=== PATIENT | male | born 1935 | race Caucasian/White ===

== ENCOUNTER → 2016-09-21 | Outpatient (CLI) | payer MEDICARE, BC ==
[2016-09-21 11:21] LABS: Blood Urea Nitrogen 13 mg/dL (9-20); Non-African American GFR(MDRD) >60 (>60 ml/min/1.73 sqM)
--- NOTE | 2016-09-21 13:30 | CT ---
EXAMINATION TYPE: CT abdomen pelvis w con DATE OF EXAM: 09/21/2016 12:54 PM COMPARISON: CT chest 04/10/2012 HISTORY: Abnormal urine cytology CT DLP: 1421 mGycm CONTRAST: CT scan of the abdomen and pelvis is performed with Oral Contrast and with IV Contrast, patient injec kary with 100 ml mL of Omnipaque 300. FINDINGS: LUNG BASES-: Enlarging pulmonary nodule right middle lobe medial segment measuring 1.4 cm versus 9.2 mm previously . This has increased in size relative to the prior study. Basilar compressive atelectasis seen. LIVER/GB: No calcified gallstones. No space occupying hepatic lesion. Biliary tree is of normal ca liber. PANCREAS: No inflammation. No distinct mass. SPLEEN: No splenic enlargement. No lesion seen. ADRENALS: No nodule. No thickening. KIDNEYS/BLADDER: No hydronephrosis. No nephrolithiasis. No disctinct renal mass. Urinary bladder g rossly unremarkable. BOWEL: Normal appendix. Normal bowel caliber. No inflammation. GENITAL ORGANS: The prostate gland is enlarged. LYMPH NODES: No greater than 1cm abdominal or pelvic lymph nodes are appreciated. AORTA: Aneurysmal dilatation of the abdominal aorta at the aortic hiatus. Infrarenal abdominal aortic aneurysm measuring 3.3 cm. OSSEOUS STRUCTURES: Degenerative changes lumbar spine. Central stenosis L5-S1. OTHER: No significant additional abnormality is seen. IMPRESSION: 1. Enlarging pulmonary nodule. Consider PET/CT. 2. Abdominal aortic aneurysm
== END | disposition home or self-care (01) ==
LOC: RADCTMAIN 10:41
PROVIDERS: ATTEND Urology
DX: I71.4 Abdominal aortic aneurysm, without rupture (principal)
CPT/HCPCS: 82565; 84520; 74177; Q9967

== ENCOUNTER → 2016-09-27 | Outpatient (CLI) | payer MEDICARE, BC ==
--- NOTE | 2016-09-27 10:24 | US ---
EXAMINATION TYPE: US duplex aorta DATE OF EXAM: 09/27/2016 COMPARISON: CT abdomen and pelvis 2017, US 2016 CLINICAL HISTORY: I71.4 Aortic abdominal aneurysm w/o rupture. EXAM MEASUREMENTS: Abdominal Aorta: Proximal: 2.8 x 2.8 cm Mid: 3.2 x 3.5 cm Distal: 2.2 x 2.2 cm Bifurcation: 0.8 cm 0.8 cm Atherosclerotic changes noted in Aorta. Mid/Distal AAA measured above. IMPRESSION: Aneurysm mid abdominal aorta measuring up to 3.5 cm transversely is redemonstrated and co rrelates with recent CT. Findings more prominent than what was found on prior ultrasound July 2015. Advise persistent imaging surveillance every 1-2 years.
== END | disposition home or self-care (01) ==
LOC: RADUSWWP 09:33
PROVIDERS: ATTEND Internal Medicine Geriatric Medicine
DX: I71.4 Abdominal aortic aneurysm, without rupture (principal)
CPT/HCPCS: 93979

== ENCOUNTER → 2017-08-22 | Outpatient (CLI) | payer MEDICARE, BC ==
--- NOTE | 2017-08-22 09:13 | US ---
EXAMINATION TYPE: US duplex aorta DATE OF EXAM: 08/22/2017 COMPARISON: 09/27/2016 CLINICAL HISTORY: I71.4 Abdominal aortic aneurysm without rupture. EXAM MEASUREMENTS: Abdominal Aorta: Proximal: 2.2x1.8 cm Mid: 2.3 x 2.0cm Distal: 3.3 x2.3 cm Bifurcation: 0.7 0.8 Atherosclerotic plaque noted. IMPRESSION: 1. There is a stable abdominal aortic distal aneurysm measuring maximal dimension of 3.3 x 2.3 cm.
== END | disposition home or self-care (01) ==
LOC: RADUSWWP 08:38
PROVIDERS: ATTEND Internal Medicine Geriatric Medicine
DX: I71.4 Abdominal aortic aneurysm, without rupture (principal)
CPT/HCPCS: 93979

== ENCOUNTER 2018-01-13 16:38 | Emergency (ER) | payer MEDICARE, BC ==
[2018-01-13] MEDS ORDERED: METOCLOPRAMIDE 5 MG/ML 2 ML VIAL IVP STA (17:21)
[2018-01-13] MEDS ORDERED: MECLIZINE 12.5 MG TAB PO STA (17:21)
--- NOTE | 2018-01-13 17:23 | ED ---
General Adult HPI - General Chief complaint: Dizziness Stated complaint: Dizzy, Vomiting Time Seen by Provider: 01/13/18 17:17 Source: patient, RN notes reviewed Mode of arrival: wheelchair Limitations: no limitations - History of Present Illness Initial comments: Patient is a pleasant 82-year-old male presenting to the emergency department with dizziness. Onset of symptoms was around 3 or 4:00. Patient did have sudden onset. Dizziness is described as a spinning type sensation. Symptoms are worse with head movement and upright position and improved with lying down. Patient did vomit. No confusion. No loss of consciousness. No speech problems. No weakness. Patient did have similar symptoms approximately 7 years ago. Symptoms are minimal at this point while lying down in bed. - Related Data Home Medications Medication Instructions Recorded Confirmed Aspirin [Adult Low Dose Aspirin EC] 81 mg PO DAILY 01/13/18 01/13/18 Finasteride [Proscar] 5 mg PO DAILY@1900 01/13/18 01/13/18 Lisinopril [Prinivil] 20 mg PO BID 01/13/18 01/13/18 Niacin 500 mg PO DAILY 01/13/18 01/13/18 [place]-3 Fatty Acids/Fish Oil [Fish 1 cap PO DAILY 01/13/18 01/13/18 Oil 1,000 mg Softgel] Simvastatin [Zocor] 20 mg PO HS 01/13/18 01/13/18 Tamsulosin HCl [Flomax] 0.4 mg PO DAILY@1900 01/13/18 01/13/18 Previous Rx's Medication Instructions Recorded Meclizine [Antivert] 25 mg PO TID PRN #12 tab 01/13/18 Allergies Allergy/AdvReac Type Severity Reaction Status Date / Time No Known Allergies Allergy Verified 01/13/18 17:16 Review of Systems ROS Statement: Those systems with pertinent positive or pertinent negative responses have been documented in the HPI. ROS Other: All systems not noted in ROS Statement are negative. Constitutional: Denies: fever Eyes: Denies: eye pain ENT: Denies: ear pain Respiratory: Denies: cough Cardiovascular: Denies: chest pain Endocrine: Denies: fatigue Gastrointestinal: Denies: abdominal pain Genitourinary: Denies: dysuria Musculoskeletal: Denies: back pain Skin: Denies: rash Neurological: Reports: vertigo. Denies: weakness Past Medical History Past Medical History: Hyperlipidemia, Hypertension, Osteoarthritis (OA) History of Any Multi-Drug Resistant Organisms: None Reported Additional Past Surgical History / Comment(s): cataract surgery Past Psychological History: No Psychological Hx Reported Smoking Status: Former smoker Past Alcohol Use History: Rare Past Drug Use History: None Reported General Exam Limitations: no limitations General appearance: alert, in no apparent distress Head exam: Present: atraumatic, normocephalic Eye exam: Present: normal appearance, PERRL, EOMI. Absent: nystagmus ENT exam: Present: normal oropharynx Neck exam: Present: normal inspection. Absent: tenderness Respiratory exam: Present: normal lung sounds bilaterally Cardiovascular Exam: Present: regular rate, normal rhythm GI/Abdominal exam: Present: soft. Absent: tenderness Extremities exam: Present: normal inspection. Absent: pedal edema, calf tenderness Neurological exam: Present: alert, oriented X3, CN II-XII intact. Absent: motor sensory deficit Expanded Neurological exam: Present: protecting the airway Patient oriented to: Present: person, place, time Speech: Present: fluid speech Cranial nerves: EOM's Intact: Normal, Facial Sensation: Normal Sensory exam: Upper Extremity Light Touch: Normal, Lower Extremity Light Touch: Normal Motor strength exam: RUE: 5, LUE: 5, RLE: 5, LLE: 5 Eye Response: (4) open spontaneously Motor Response: (6) obeys commands Verbal Response: (5) oriented Psychiatric exam: Present: normal affect, normal mood Skin exam: Present: normal color Course Vital Signs 01/13/18 01/13/18 01/13/18 16:45 17:06 18:01 Temperature 97.3 F L 97 F L Pulse Rate 59 L 59 L 58 L Respiratory 18 18 18 Rate Blood Pressure 181/83 190/86 160/74 O2 Sat by Pulse 96 92 L 95 Oximetry EKG Findings - EKG Comments: EKG Findings:: Normal sinus rhythm 64. UT 162. QRS 126. QT 436. QTc 449. Left axis. Right bundle branch block. Inferior Q waves. No acute ST change Medical Decision Making - Medical Decision Making Patient reevaluated and improved. Patient did feel somewhat dizzy when he got up however states it was not bad. Patient states he does feel comfortable with walking and his ability take care of himself. Patient is advised to consider admission for further evaluation including neurology evaluation. Patient is made aware that there is some chance of stroke that is not been identified at this time causing his symptoms. Despite this patient refuses admission and again requests discharge home. Family is present. - Lab Data Result diagrams: 01/13/18 17:00 01/13/18 17:00 Lab Results 01/13/18 01/13/18 01/13/18 Range/Units 17:00 17:00 17:00 WBC 9.1 (3.8-10.6) k/uL RBC 4.42 (4.30-5.90) m/uL Hgb 13.8 (13.0-17.5) gm/dL Hct 43.6 (39.0-53.0) % MCV 98.6 (80.0-100.0) fL MCH 31.2 (25.0-35.0) pg MCHC 31.7 (31.0-37.0) g/dL RDW 12.6 (11.5-15.5) % Plt Count 227 (150-450) k/uL Neutrophils % 76 % Lymphocytes % 16 % Monocytes % 5 % Eosinophils % 1 % Basophils % 1 % Neutrophils # 6.9 (1.3-7.7) k/uL Lymphocytes # 1.5 (1.0-4.8) k/uL Monocytes # 0.5 (0-1.0) k/uL Eosinophils # 0.1 (0-0.7) k/uL Basophils # 0.0 (0-0.2) k/uL PT 10.5 (9.0-12.0) sec INR 1.1 (<1.2) APTT 23.6 (22.0-30.0) sec Sodium 141 (137-145) mmol/L Potassium 3.8 (3.5-5.1) mmol/L Chloride 107 (98-107) mmol/L Carbon Dioxide 23 (22-30) mmol/L Anion Gap 11 mmol/L BUN 11 (9-20) mg/dL Creatinine 0.62 L (0.66-1.25) mg/dL Est GFR (CKD-EPI)AfAm >90 (>60 ml/min/1.73 sqM) Est GFR (CKD-EPI)NonAf >90 (>60 ml/min/1.73 sqM) Glucose 127 H (74-99) mg/dL Calcium 9.5 (8.4-10.2) mg/dL Total Bilirubin 0.5 (0.2-1.3) mg/dL AST 20 (17-59) U/L ALT 23 (21-72) U/L Alkaline Phosphatase 94 (38-126) U/L Total Protein 7.3 (6.3-8.2) g/dL Albumin 4.3 (3.5-5.0) g/dL - Radiology Data Radiology results: report reviewed (Computed tomography scan of the brain shows atrophy. No acute intercranial abnormality.) Disposition Clinical Impression: Dizziness Disposition: HOME SELF-CARE Condition: Stable Instructions: Dizziness (ED) Additional Instructions: Antivert as needed for dizziness. Please follow-up with Dr. Dupont tomorrow for further evaluation. Return for increased dizziness, weakness, confusion, speech problems, worsening symptoms or any other concerns. Prescriptions: Meclizine [Antivert] 25 mg PO TID PRN #12 tab PRN Reason: dizziness Is patient prescribed a controlled substance at d/c from ED?: No Referrals: Devan Dupont MD [Primary Care Provider] - 1-2 days France Mandel MD [STAFF PHYSICIAN] - 1-2 days Time of Disposition: 19:02
[2018-01-13 17:35] LABS: Basophils % (A) 1 %; Eosinophils # (A) 0.1 k/uL (0-0.7); Eosinophils % (A) 1 %; HCT 43.6 % (39.0-53.0); HGB 13.8 gm/dL (13.0-17.5); Lymphocytes # (A) 1.5 k/uL (1.0-4.8); Lymphocytes % (A) 16 %; MCH 31.2 pg (25.0-35.0); MCHC 31.7 g/dL (31.0-37.0); MCV 98.6 fL (80.0-100.0); Mean Platelet Volume 7.2; Monocytes # (A) 0.5 k/uL (0-1.0); Monocytes % (A) 5 %; Neutrophils # (A) 6.9 k/uL (1.3-7.7); Neutrophils % (A) 76 %; Platelet Count 227 k/uL (150-450); RBC 4.42 m/uL (4.30-5.90); RDW 12.6 % (11.5-15.5); WBC 9.1 k/uL (3.8-10.6)
[2018-01-13 17:44] LABS: ALT 23 U/L (21-72); AST 20 U/L (17-59); Albumin 4.3 g/dL (3.5-5.0); Alkaline Phosphatase 94 U/L (38-126); Anion Gap 11 mmol/L; Blood Urea Nitrogen 11 mg/dL (9-20); Calcium 9.5 mg/dL (8.4-10.2); Carbon Dioxide 23 mmol/L (22-30); Chloride 107 mmol/L (98-107); Glucose 127 mg/dL (74-99); INR 1.1 (<1.2); Partial Thromboplastin Time 23.6 sec (22.0-30.0); Potassium 3.8 mmol/L (3.5-5.1); Prothrombin Time 10.5 sec (9.0-12.0); Sodium 141 mmol/L (137-145); Total Bilirubin 0.5 mg/dL (0.2-1.3); Total Protein 7.3 g/dL (6.3-8.2)
--- NOTE | 2018-01-13 18:20 | CT ---
EXAMINATION TYPE: CT brain wo con DATE OF EXAM: 01/13/2018 COMPARISON: 11/27/2011 HISTORY: Dizziness. CT DLP: 982.3 mGycm Automated exposure control for dose reduction was used. FINDINGS: There is small mucus retention cyst in the left maxillary sinus. There is cerebral cortical atrophy. There is hypodensity in the periventricular white matter. There is no mass effect nor midline shift. There is no sign of intracranial hemorrhage. The calvarium is intact. IMPRESSION: CEREBRAL ATROPHY AND CHRONIC SMALL VESSEL ISCHEMIA. NO ACUTE INTRACRANIAL ABNORMALITY. THERE IS SOME PROGRESSION OF WHITE MATTER DISEASE COMPARED TO OLD EXAM.
[2018-01-13] MEDS ORDERED: DIAZEPAM 5 MG/ML 2 ML INJ IVP STA (18:28)
[2018-01-13 19:36] VITALS: BP 188/107; PULSE 67; RESP 16; TEMP 97.5
== END 2018-01-13 19:44 | disposition home or self-care (01) ==
LOC: EC 16:38
DX: R42 Dizziness and giddiness (principal); G31.9 Degenerative disease of nervous system, unspecified; R11.10 Vomiting, unspecified; E78.5 Hyperlipidemia, unspecified; I10 Essential (primary) hypertension; M19.90 Unspecified osteoarthritis, unspecified site; Z87.891 Personal history of nicotine dependence; Z79.82 Long term (current) use of aspirin; Z79.899 Other long term (current) drug therapy
CPT/HCPCS: 36415; 93005; 80053; 85025; 85610; 85730; 70450; 99284; 96374; 96375; J2765; J3360

== ENCOUNTER → 2018-01-21 | Outpatient (CLI) | payer MEDICARE, BC ==
--- NOTE | 2018-01-21 17:13 | US ---
EXAMINATION TYPE: US carotid duplex BILAT DATE OF EXAM: 01/21/2018 COMPARISON: NONE CLINICAL HISTORY: R42 Dizziness. EXAM MEASUREMENTS: RIGHT: Peak Systolic Velocity (PSV) cm/sec ----- Right CCA: 62.5 ----- Right ICA: 65.4 ----- Right ECA: 81.1 ICA/CCA ratio: 1.0 RIGHT: End Diastole cm/sec ----- Right CCA: 12.4 ----- Right ICA: 17.7 ----- Right ECA: 18.7 LEFT: Peak Systolic Velocity (PSV) cm/sec ----- Left CCA: 86.6 ----- Left ICA: 64.6 ----- Left ECA: 96.2 ICA/CCA ratio: 0.7 LEFT: End Diastole cm/sec ----- Left CCA: 13.7 ----- Left ICA: 18.5 ----- Left ECA: 9.5 VERTEBRALS (direction of flow): Right Vertebral: Antegrade Left Vertebral: Antegrade Rhythm: Normal Bilateral intimal thickening, plaque bilateral bulb, no elevated velocities, no significant stenosis. Grayscale, color Doppler, spectral Doppler imaging performed of the carotid arteries. Waveform analys is does not show significant stenosis of the proximal internal carotid arteries. IMPRESSION: No hemodynamic significant stenosis of the proximal internal carotid arteries bilaterall y by Doppler criteria, an indirect measurement of carotid stenosis
== END | disposition home or self-care (01) ==
LOC: RADUSWWP 16:14
PROVIDERS: ATTEND Internal Medicine
DX: R42 Dizziness and giddiness (principal)
CPT/HCPCS: 93880

== ENCOUNTER → 2018-02-15 | Outpatient (CLI) | payer MEDICARE, BC ==
[2018-02-15 12:35] LABS: Blood Urea Nitrogen 16 mg/dL (9-20)
--- NOTE | 2018-02-15 14:19 | CT ---
EXAMINATION TYPE: CT chest w con DATE OF EXAM: 02/15/2018 COMPARISON: HISTORY: f/u pulmonary nodules CT DLP: 429 mGycm Automated exposure control for dose reduction was used. CONTRAST: CT scan of the chest is performed with IV Contrast, patient injected with 100 mL of Isovue 300. FINDINGS: LUNGS: Lobulated nodule within the medial segment right middle lobe measures 9 mm versus 9.2 mm previ ously. No new nodules are identified. Moderate upper lobe emphysematous changes noted. Dependent basi lar atelectasis. No evidence for mass or pleural effusion. No volume loss identified. No new nodules are identified at this time. There is no pleural effusion or pneumothorax seen. The tracheobronchial tree is patent. MEDIASTINUM: There are no greater than 1 cm hilar or mediastinal lymph nodes. No pericardial effusi on is seen. Borderline aneurysmal dilatation of the ascending thoracic aorta measuring 4 cm AP dimens ion. The heart is mildly enlarged. UPPER ABDOMEN: Infrarenal abdominal aorta as visualized demonstrates aneurysm of at least 3.6 cm. OTHER: No additional significant abnormality is seen. IMPRESSION: 1. Stable solitary pulmonary nodule dating back to 2011. No additional nodules identified at this poi nt in time. 2. Moderate emphysematous change and COPD.
== END | disposition home or self-care (01) ==
LOC: RADCTMAIN 12:01
PROVIDERS: ATTEND Internal Medicine Critical Care Medicine
DX: R91.8 Other nonspecific abnormal finding of lung field (principal); J43.9 Emphysema, unspecified
CPT/HCPCS: 82565; 84520; 71260; 36415; Q9967

== ENCOUNTER → 2018-08-27 | Outpatient (CLI) | payer MEDICARE, BC ==
--- NOTE | 2018-08-27 07:57 | US ---
EXAMINATION TYPE: US duplex aorta DATE OF EXAM: 08/27/2018 COMPARISON: Ultrasound dated 08/22/2017 CLINICAL HISTORY: I71.4 AAA. No hx AAA, HTN- on meds, high cholesterol, nonsmoker x 2 years EXAM MEASUREMENTS: Abdominal Aorta: Proximal: 2.2 x 1.9 cm Mid: 1.9 x 2.1 cm Distal: 1.9 x 2.4 cm Bifurcation: Right- 0.7 x 0.9 cm Left- 0.7 x 0.9 cm Distal AAA visualized - 6.1 x 3.7 x 2.9 cm. Atherosclerotic changes seen. IMPRESSION: Distal abdominal aortic aneurysm measures 3.7 x 2.9 cm and 6.1 cm in length. This measure d 3.3 x 2.3 cm on the prior of 08/22/2017. CTA abdomen and pelvis is recommended for more accurate isamar surement assessment given the interval growth.
== END | disposition home or self-care (01) ==
LOC: RADUSWWP 06:51
PROVIDERS: ATTEND Internal Medicine Geriatric Medicine
DX: I71.4 Abdominal aortic aneurysm, without rupture (principal); I10 Essential (primary) hypertension
CPT/HCPCS: 93979

== ENCOUNTER → 2019-10-07 | Outpatient (CLI) | payer MEDICARE, BC ==
--- NOTE | 2019-10-07 08:39 | US ---
EXAMINATION TYPE: US duplex aorta DATE OF EXAM: 10/07/2019 COMPARISON: 08/27/2018 CLINICAL HISTORY: I71.4 Abdominal aortic aneurysm, without rupture. EXAM MEASUREMENTS: Abdominal Aorta: Proximal: 2.5cm Mid: 2.4cm Distal: 1.6 Bifurcation: Right: 1.2cm Left 1.4cm There is an abdominal aortic aneurysm is known to the patient at level of distal aorta currently omar uring 3.6 x 5.8 x 3.9cm IMPRESSION: Distal abdominal aortic aneurysm measuring 3.6 x 5.8 x 3.9 cm. This previously measured 3 .7 x 6.1 x 2.9 cm on the prior of 08/27/2018 and appears to have increased in size sonographically. CT A abdomen and pelvis is recommended for more accurate measurements.
== END | disposition home or self-care (01) ==
LOC: RADUSWWP 07:56
PROVIDERS: ATTEND Internal Medicine Geriatric Medicine
DX: I71.4 Abdominal aortic aneurysm, without rupture (principal)
CPT/HCPCS: 93979

== ENCOUNTER → 2020-11-24 | Outpatient (CLI) | payer MEDICARE, BC ==
--- NOTE | 2020-11-24 14:46 | US ---
EXAMINATION TYPE: US duplex aorta DATE OF EXAM: 11/24/2020 COMPARISON: NONE CLINICAL HISTORY: I71.4 Abdominal aortic aneurysm, without rupture. EXAM MEASUREMENTS: Abdominal Aorta: Proximal: 2.2 transverse by 2.5 cm AP Mid: 2.8 transverse by 2.4 cm AP Distal: 3.8 transverse by 3.4 cm AP Bifurcation: 1.07 0.94 IMPRESSION: Fusiform prominence of the distal abdominal aorta with greatest AP dimension 3.4 cm dista lly
== END | disposition home or self-care (01) ==
LOC: RADUSWWP 09:37
PROVIDERS: ATTEND Internal Medicine Geriatric Medicine
DX: I71.4 Abdominal aortic aneurysm, without rupture (principal)
CPT/HCPCS: 93979

== ENCOUNTER 2021-05-14 05:55 | Emergency (ER) | payer MEDICARE, BC ==
--- NOTE | 2021-05-14 06:53 | ED ---
URI HPI - General Chief Complaint: Upper Respiratory Infection Stated Complaint: Covid+, Wants BAM Time Seen by Provider: 05/14/21 06:08 Source: patient, RN notes reviewed Mode of arrival: ambulatory Limitations: no limitations - History of Present Illness Initial Comments: Pleasant 85-year-old male presents to the emergency department for monoclonal antibody infusion. 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 She is also positive. Patient really states he is having no symptoms. No headache, no fever or chills, no changes in vision or hearing, no sore throat or difficulty with speech, no neck pain, no chest pain or shortness of breath, no abdominal pain, no nausea or vomiting, no changes in urination or bowel movements, no numbness or tingling, no extremity pain, no skin rashes or lesions. - Related Data Home Medications Medication Instructions Recorded Confirmed Aspirin [Adult Low Dose Aspirin EC] 81 mg PO DAILY 01/13/18 03/03/18 Finasteride [Proscar] 5 mg PO DAILY@189901/13/18 03/03/18 Niacin 500 mg PO DAILY 01/13/18 03/03/18 [place]-3 Fatty Acids/Fish Oil [Fish 1 cap PO DAILY 01/13/18 03/03/18 Oil 1,000 mg Softgel] Simvastatin [Zocor] 20 mg PO HS 01/13/18 03/03/18 Tamsulosin HCl [Flomax] 0.4 mg PO DAILY@189901/13/18 03/03/18 lisinopriL [Prinivil] 20 mg PO BID 01/13/18 03/03/18 Calcium Carbonate [Calcium] 600 mg PO DAILY 03/03/18 03/03/18 Vit B Complx C/Folic Acid/Zinc 1 tab PO DAILY 03/03/18 03/03/18 [Renaplex Tablet] Previous Rx's Medication Instructions Recorded Meclizine [Antivert] 25 mg PO TID PRN #12 tab 01/13/18 Allergies Allergy/AdvReac Type Severity Reaction Status Date / Time No Known Allergies Allergy Verified 05/14/21 06:04 Review of Systems ROS Statement: Those systems with pertinent positive or pertinent negative responses have been documented in the HPI. ROS Other: All systems not noted in ROS Statement are negative. 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 Past Psychological History: No Psychological Hx Reported Smoking Status: Never smoker Past Alcohol Use History: Rare Past Drug Use History: None Reported - Past Family History Father Additional Family Medical History / Comment(s): from a "slow heart" Mother Family Medical History: CVA/TIA General Exam Limitations: no limitations General appearance: alert, in no apparent distress Head exam: Present: atraumatic, normocephalic, normal inspection Eye exam: Present: normal appearance, PERRL, EOMI. Absent: scleral icterus, conjunctival injection, periorbital swelling ENT exam: Present: normal exam, mucous membranes moist Neck exam: Present: normal inspection. Absent: tenderness, meningismus, lymphadenopathy Respiratory exam: Present: normal lung sounds bilaterally. Absent: respiratory distress, wheezes, rales, rhonchi, stridor Cardiovascular Exam: Present: regular rate, normal rhythm, normal heart sounds. Absent: systolic murmur, diastolic murmur, rubs, gallop, clicks GI/Abdominal exam: Present: soft, normal bowel sounds. Absent: distended, tenderness, guarding, rebound, rigid Extremities exam: Present: normal inspection, full ROM, normal capillary refill. Absent: tenderness, pedal edema, joint swelling, calf tenderness Back exam: Present: normal inspection Neurological exam: Present: alert, oriented X3, CN II-XII intact Psychiatric exam: Present: normal affect, normal mood Skin exam: Present: warm, dry, intact, normal color. Absent: rash Course Vital Signs 05/14/21 06:00 Temperature 98.1 F Pulse Rate 67 Respiratory 22 Rate Blood Pressure 188/84 O2 Sat by Pulse 98 Oximetry Medical Decision Making - Medical Decision Making Nontoxic-appearing elderly male presents for monoclonal antibody infusion. Asymptomatic. Fully immunized against COVID-19. Patient was told to return to the ER for any signs or symptoms worsen. Told to return immediately if any other problems arise. All questions answered. Treatment plan discussed. Patient in agreement Disposition Clinical Impression: COVID-19, Encounter for medical care, Poor hypertension control Disposition: HOME SELF-CARE Instructions (If sedation given, give patient instructions): Coronavirus Disease 2019 (COVID-19), Hypertension (ED) Additional Instructions: SELF QUARANTINE DISCHARGE: As you are at risk for symptoms due to coronavirus, please stay home and stay away from others as much as possible. Please maintain social distance of 6 feet if possible. You should not return to work until at least 3 days (72 hours) have passed since recovery of symptoms. This defined as resolution of fever without the use of fever reducing medicines and improvement in respiratory symptoms (e.g,, cough, shortness of breath) and, At least 5 days have passed since symptoms first appeared. More information about what to do if you are sick can be found on the CDC website at https://www.cdc.gov/coronavirus/2019-ncov/vv-tyh-vek-sick/ccdam-rzhg-wijl.html Expect the symptoms to last for 7-14 days from onset. Use acetaminophen (Tylenol) as needed for discomfort. You can take a maximum of 1 gram every 6 hours for discomfort, with your total dose in 24 hours not exceeding 4 grams. Be sure to maintain hydration. Drink continuous water and/or items high in vitamin C, such as orange juice and/or lemonade. Unless you have high blood pressure, you may consider Sudafed (which is [id number]) for nasal congestion. I would suggest that a short acting Sudafed rather than the 24 hour Sudafed. For a cough you may take Mucinex or Robitussin. Also consider the use of Vicks Vapor Rub or your chest when you sleep. Use a humidifier that is cleaned frequently, in the bedroom at night. For Nausea /Vomiting/Diarrhea associated with your Illness: o Small frequent sips of room temperature liquids. o Diet: [place] [employer] - If you are still experiencing discomfort and/or nausea please slowly advancing your diet using the BRAT Diet = bananas, rice, apples/apple sauce, toast. o With diarrhea avoid any dairy for 48 hours after symptoms resolved. o Continue with activity as tolerated. If your symptoms do get worse and you believe that the upper respiratory infection has developed into something else, such as pneumonia or severe dehydration, please return to the emergency department or follow-up with your primary care. But expect to be symptomatic for the days as indicated above Is patient prescribed a controlled substance at d/c from ED?: No Referrals: Devan Dupont MD [Primary Care Provider] - 1-2 days Time of Disposition: 07:50
[2021-05-14] MEDS ORDERED: BAMLANIVIMAB (EUA) 700 MG, ETESEVIMAB (EUA) 1,400 MG in SODIUM CHLORIDE 0.9% 100 ML IVPB ONE (07:00)
[2021-05-14] MEDS ORDERED: SODIUM CHLORIDE 0.9% 50 ML IVPB ONE (07:00)
[2021-05-14 08:40] VITALS: BP 128/86; PULSE 63; RESP 16; TEMP 97.8
== END 2021-05-14 08:36 | disposition home or self-care (01) ==
LOC: EC 05:55
DX: U07.1 COVID-19 (principal); I10 Essential (primary) hypertension; E78.5 Hyperlipidemia, unspecified; M19.90 Unspecified osteoarthritis, unspecified site; Z79.82 Long term (current) use of aspirin
CPT/HCPCS: 99282; M0245

== ENCOUNTER 2021-09-23 03:00 | Emergency (ER) | payer MEDICARE, BC ==
[2021-09-23 03:13] VITALS: TEMP 98
[2021-09-23] MEDS ORDERED: TIMOLOL 0.5% OPHTH DROPS 5 ML BTL RIGHT EYE STA (03:33)
[2021-09-23] MEDS ORDERED: acetaZOLAMIDE 250 MG TAB PO STA (03:34)
[2021-09-23] MEDS ORDERED: BRIMONIDINE TARTRATE 0.2% DROPS 5 ML BTL RIGHT EYE STA (03:35)
--- NOTE | 2021-09-23 03:42 | ED ---
Eye Problem HPI - General Chief complaint: Eye Problems Stated complaint: Loss of vision Time Seen by Provider: 09/23/21 03:07 Source: patient Mode of arrival: EMS Limitations: no limitations - History of Present Illness Initial comments: This patient is an 86-year-old man who presents with complaint of developing right I pain and decreased vision. Patient states that he had a shunt placed in the right eye to treat glaucoma by windows mobile developer Romulo villanueva on Sunday. The patient did have follow-up appointment on and had been doing fairly well. He was in bed tonight around 1 PM when he noticed he had sudden acute right eye pain and he states that he was not able to see with the right eye. MD chief complaint: eye pain, vision change Onset/Timin -: hour(s) Onset Description: sudden Location: right eye Place: home If Injury: none Eye Symptoms: pain, decreased vision Severity: severe If Pain, Quality: aching Context: history of glaucoma, recent eye procedure Associated Symptoms: none Treatments Prior to Arrival: none - Related Data Home Medications Medication Instructions Recorded Confirmed Aspirin [Adult Low Dose Aspirin EC] 81 mg PO DAILY 01/13/18 03/03/18 Finasteride [Proscar] 5 mg PO DAILY@189901/13/18 03/03/18 Niacin 500 mg PO DAILY 01/13/18 03/03/18 [place]-3 Fatty Acids/Fish Oil [Fish 1 cap PO DAILY 01/13/18 03/03/18 Oil 1,000 mg Softgel] Simvastatin [Zocor] 20 mg PO HS 01/13/18 03/03/18 Tamsulosin HCl [Flomax] 0.4 mg PO DAILY@189901/13/18 03/03/18 lisinopriL [Prinivil] 20 mg PO BID 01/13/18 03/03/18 Calcium Carbonate [Calcium] 600 mg PO DAILY 03/03/18 03/03/18 Vit B Complx C/Folic Acid/Zinc 1 tab PO DAILY 03/03/18 03/03/18 [Renaplex Tablet] Previous Rx's Medication Instructions Recorded Meclizine [Antivert] 25 mg PO TID PRN #12 tab 01/13/18 Allergies Allergy/AdvReac Type Severity Reaction Status Date / Time No Known Allergies Allergy Verified 09/23/21 03:02 Review of Systems ROS Statement: Those systems with pertinent positive or pertinent negative responses have been documented in the HPI. ROS Other: All systems not noted in ROS Statement are negative. 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 glaucoma sx Past Psychological History: No Psychological Hx Reported Smoking Status: Never smoker Past Alcohol Use History: Rare Past Drug Use History: None Reported - Past Family History Father Additional Family Medical History / Comment(s): from a "slow heart" Mother Family Medical History: CVA/TIA General Exam Limitations: no limitations General appearance: alert, in no apparent distress Head exam: Present: atraumatic, normocephalic Pupils: Present: other (See below) ENT exam: Present: normal exam Neck exam: Present: normal inspection Respiratory exam: Present: normal lung sounds bilaterally. Absent: respiratory distress, wheezes, rales, rhonchi, stridor Cardiovascular Exam: Present: regular rate, normal rhythm, normal heart sounds Skin exam: Present: warm, dry, intact, normal color. Absent: rash Course Vital Signs 09/23/21 09/23/21 09/23/21 03:02 04:53 06:40 Temperature 98 F Pulse Rate 62 65 65 Respiratory 18 16 16 Rate Blood Pressure 192/95 185/86 180/80 O2 Sat by Pulse 96 98 94 L Oximetry - Reevaluation(s) Reevaluation #1: 09/23/21 03:42 Page ophthalmology on-call regarding patient Medical Decision Making - Medical Decision Making Slit lamp examination of the left eye reveals some corneal clouding, mild as well as some mild ciliary flush. The anterior chamber does appear clear of cells and flare. Pupils midrange, and reactive. Unable to visualize the patient's fundus. As measured using the iCare device the intraocular pressure is 34 mm. Contralateral side measures 24 mm This patient is an 86-year-old man here to have evaluation for pain and decreased visual acuity following placement of the Xen stent to the right eye. I was able to reach the patient's windows mobile developer's partner, Dr. Tye Pinedo, who requests patient to be seen in clinic by the windows mobile developer on Sunday. He states the windows mobile developer within the [facility]. Patient did have spontaneous improvement of the eye pain. Patient is started on drops to control the pressure in the eye. Disposition Clinical Impression: Pain, eye, right, Visual acuity reduced Disposition: HOME SELF-CARE Condition: Poor Instructions (If sedation given, give patient instructions): Blurred Vision (ED), Eye Pain (ED) Additional Instructions: As we discussed, see your windows mobile developer Dr. Romulo Mcclure, at his office today at the [place] [facility]. Return here if there is any problem with the follow-up plan. Is patient prescribed a controlled substance at d/c from ED?: No Referrals: Devan Dupont MD [Primary Care Provider] - 1-2 days
[2021-09-23 04:56] VITALS: PULSE 65; RESP 16
[2021-09-23 06:41] VITALS: BP 180/80
== END 2021-09-23 08:07 | disposition home or self-care (01) ==
LOC: EC 03:00
DX: H57.11 Ocular pain, right eye (principal); H53.8 Other visual disturbances; E78.5 Hyperlipidemia, unspecified; I10 Essential (primary) hypertension; Z79.82 Long term (current) use of aspirin; Z79.899 Other long term (current) drug therapy
CPT/HCPCS: 99283

== ENCOUNTER → 2022-01-31 | Outpatient (CLI) | payer MEDICARE, BC ==
[2022-01-31 12:49] LABS: African American GFR (CKD) >90 (>60 ml/min/1.73 sqM); Blood Urea Nitrogen 8 mg/dL (9-20); Non-African American GFR(CKD) 81 (>60 ml/min/1.73 sqM)
--- NOTE | 2022-01-31 14:39 | CT ---
EXAMINATION TYPE: CT abdomen pelvis w con CT DLP: 710.90 mGycm, Automated exposure control for dose reduction was used. DATE OF EXAM: 01/31/2022 2:25 PM COMPARISON: CT abdomen pelvis most recent from 09/21/2016. CLINICAL INDICATION:Male, 86 years old with history of R10.9 Abd pain; Diarrhea and abdomen pain TECHNIQUE: Standard CT of the abdomen and pelvis following the administration of 70 cc of Isovue 30 0 IV contrast material and oral contrast. Coronal and sagittal reformats were performed. FINDINGS: LOWER CHEST: Stable 1.1 cm right middle lobe pulmonary nodule dating back to 2016. Coronary artery ca lcifications. Aortic valvular calcifications. ABDOMEN LIVER: Unremarkable GALLBLADDER AND BILE DUCTS: Unremarkable. PANCREAS: Atrophy of the pancreas with mildly prominent main pancreatic duct measuring up to 4.5 mm. There are multiple pancreatic parenchymal calcifications. SPLEEN: Unremarkable. ADRENAL GLANDS: Unremarkable. KIDNEYS AND URETERS: No evidence of hydronephrosis or renal calculus. The kidneys enhance symmetrical ly. Right inferior pole 1.5 cm cyst. PELVIS BLADDER: Unremarkable REPRODUCTIVE: Prostate is enlarged in size measuring 6.2 cm in transverse dimension. ABDOMEN & PELVIS STOMACH AND BOWEL: Stomach and duodenum are unremarkable. Distal colonic diverticulosis without evid ence for acute diverticulitis. There is wall thickening of the hepatic flexure. No pericolic abscess. No pneumatosis. The appendix is within normal limits. Enteric contrast reaches the distal small rex l. No evidence of bowel obstruction. PERITONEUM: No evidence of pneumoperitoneum or free fluid. VASCULATURE: Infrarenal fusiform abdominal aortic aneurysm measuring 4.6 x 4.5 cm, previously 3.6 x 3 .3 cm. Mural thrombus within the aneurysm. Moderate atherosclerotic calcification of the aorta and it s branches. Moderate atherosclerotic calcification of the origin of the bilateral renal arteries and SMA. MUSCULOSKELETAL: No acute osseous abnormalities. Osteoarthritic changes of both hips with right great er than the left. Multilevel degenerative changes of the visualized spine. LYMPH NODES: No gross evidence for lymphadenopathy. SOFT TISSUE/ABDOMINAL WALL: Unremarkable IMPRESSION: 1. Circumferential wall thickening of the hepatic flexure which may be due to underdistention versus nonspecific colitis secondary to infectious/inflammatory etiology with ischemia is not excluded. 2. Increased size of abdominal aortic aneurysm measuring up to 4.6 cm. Vascular surgery consult is re commended. 3. Sequelae of chronic pancreatitis.
== END | disposition home or self-care (01) ==
LOC: RADCTMAIN 11:54
PROVIDERS: ATTEND Internal Medicine Geriatric Medicine
DX: K76.89 Other specified diseases of liver (principal); I71.40 Abdominal aortic aneurysm, without rupture, unspecified; K86.1 Other chronic pancreatitis
CPT/HCPCS: 82565; 84520; 74177; 36415; Q9967

== ENCOUNTER 2023-04-26 06:47 | Emergency (ER) | payer MEDICARE, BC ==
--- NOTE | 2023-04-26 11:19 | XR ---
EXAMINATION TYPE: XR ribs LT w pa chest xray, 5 views DATE OF EXAM: 04/26/2023 Comparison: 06/16/2010 Clinical History: 87-year-old male with left rib pain after fall Findings: Heart borderline in size. Tortuous/ectatic thoracic aorta. Multifocal patchy interstitial opacities e specially at the right upper lobe. No pleural effusion. No displaced left rib fracture. Impression: 1. Increasing patchy interstitial infiltrates. Correlate to exclude underlying atypical or COVID pneu monia. 2. No displaced left rib fracture seen.
--- NOTE | 2023-04-26 11:24 | XR ---
EXAMINATION TYPE: XR Hip 2 views LT and AP Pelvis DATE OF EXAM: 04/26/2023 Comparison: None Clinical History: 87-year-old male with pain after fall Findings: Degenerative change at the bilateral SI joints. Moderate degenerative change at both hips with joint space narrowing, subchondral sclerosis, and subchondral cystic change. Prominent marginal spurring is present right greater than left. No displaced left hip fracture is seen though overall assessment is limited due to the degree of osteopenia. Impression: Moderate bilateral hip OA. No displaced fracture on either side but with osteopenia limiting the asse ssment. If patient nonweightbearing, MRI for more sensitive evaluation.
[2023-04-26] MEDS ORDERED: BACITRACIN OINT 1 EACH PACKET TOPICAL ONE (11:28)
[2023-04-26] MEDS ORDERED: IBUPROFEN 800 MG TAB PO STA (11:29)
--- NOTE | 2023-04-26 12:32 | ED ---
General Adult HPI - General Chief complaint: Fall Stated complaint: Fall Time Seen by Provider: 04/26/23 09:43 Source: EMS, RN notes reviewed Mode of arrival: EMS Limitations: no limitations - History of Present Illness Initial comments: 79-year-old male with a past medical history significant for deafness and blindness presents the emergency department with a chief complaint of fall. Patient reports he fell from ground level proximally 3 days ago. He is complaining of sided neck pain and left-sided hip pain. He is able to ambulate. He is unsure of whether he hit his head. Denies anticoagulation. Denies any dizziness or lightheadedness, vision changes or nausea or vomiting. - Related Data Home Medications Medication Instructions Recorded Confirmed Aspirin [Adult Low Dose Aspirin EC] 81 mg PO DAILY 01/13/18 03/03/18 Finasteride [Proscar] 5 mg PO DAILY@189901/13/18 03/03/18 Niacin 500 mg PO DAILY 01/13/18 03/03/18 [place]-3 Fatty Acids/Fish Oil [Fish 1 cap PO DAILY 01/13/18 03/03/18 Oil 1,000 mg Softgel] Simvastatin [Zocor] 20 mg PO HS 01/13/18 03/03/18 Tamsulosin HCl [Flomax] 0.4 mg PO DAILY@189901/13/18 03/03/18 lisinopriL [Prinivil] 20 mg PO BID 01/13/18 03/03/18 Calcium Carbonate [Calcium] 600 mg PO DAILY 03/03/18 03/03/18 Vit B Complx C/Folic Acid/Zinc 1 tab PO DAILY 03/03/18 03/03/18 [Renaplex Tablet] Previous Rx's Medication Instructions Recorded Meclizine [Antivert] 25 mg PO TID PRN #12 tab 01/13/18 Ibuprofen [Motrin] 800 mg PO Q6HR #30 tab 04/26/23 Lidocaine 5% Patch [Lidoderm 5% 1 patch TOPICAL DAILY #10 patch 04/26/23 Patch] Allergies Allergy/AdvReac Type Severity Reaction Status Date / Time No Known Allergies Allergy Verified 04/26/23 06:58 Review of Systems ROS Statement: Those systems with pertinent positive or pertinent negative responses have been documented in the HPI. ROS Other: All systems not noted in ROS Statement are negative. 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 glaucoma sx Past Psychological History: No Psychological Hx Reported Smoking Status: Never smoker Past Alcohol Use History: Rare Past Drug Use History: None Reported - Past Family History Father Additional Family Medical History / Comment(s): from a "slow heart" Mother Family Medical History: CVA/TIA General Exam - General Exam Comments Initial Comments: General: Alert, in no acute distress Head: atraumatic normocephalic. Eyes PERRL, EOMI intact, mucous membranes moist Respiratory: Lungs clear to auscultation bilaterally Cardiovascular: Rate regular rhythm Abdominal: Soft without guarding or rebound Extremities: Normal inspection with full range of motion and normal capillary refill, small abrasion to left elbow. No active bleeding. Full range of motion. No crepitus Neuroogic: alert and oriented 3, CN II-XII intact, able to ambulate with steady gait Skin: warm dry and intact with normal color Limitations: no limitations Course Vital Signs 04/26/23 04/26/23 06:55 12:56 Temperature 98 F 98.2 F Pulse Rate 71 70 Respiratory 20 18 Rate Blood Pressure 113/69 122/73 O2 Sat by Pulse 95 96 Oximetry - Reevaluation(s) Reevaluation #1: 04/26/23 12:29 Patient able to ambulate to the restroom with a steady gait. Reevaluation #2: 04/26/23 14:05 Should reevaluated updated on results. Agreeable with the plan for discharge home. Medical Decision Making - Medical Decision Making Was pt. sent in by a medical professional or institution (, PA, DEPUTY CORONER INVESTIGATOR, urgent care, hospital, or fpc...) When possible be specific @ -[No] Did you speak to anyone other than the patient for history (EMS, parent, family, police, friend...)? What history was obtained from this source @ -[No] Did you review nursing and triage notes (agree or disagree)? Why? @ -[I reviewed and agree with nursing and triage notes] Were old charts reviewed (outside hosp., previous admission, EMS record, old EKG, old radiological studies, urgent care reports/EKG's, fpc records)? Report findings @ -[No old charts were reviewed] Differential Diagnosis (chest pain, altered mental status, abdominal pain women, abdominal pain men, vaginal bleeding, weakness, fever, dyspnea, syncope, headache, dizziness, GI bleed, back pain, seizure, CVA, palpatations, mental health, musculoskeletal)? @ -[not applicable] EKG interpreted by me (3pts min.). @ -[As above] X-rays interpreted by me (1pt min.). @ -X-rays of left ribs and left hip do not reveal any fracture. CT interpreted by me (1pt min.). @ -I interpreted the following: CT reveals no active hemorrhage or midline shift. 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 min.). @ -[None done] What testing was considered but not performed or refused? (CT, X-rays, U/S, labs)? Why? @ -[None] What meds were considered but not given or refused? Why? @ -[None] Did you discuss the management of the patient with other professionals (professionals i.e. , PA, DEPUTY CORONER INVESTIGATOR, lab, RT, psych nurse, school social worker, hospitality team member, teacher, bsa officer, telehealth case manager)? Give summary @ -[No] Was smoking cessation discussed for >3mins.? @ -[No] Was critical care preformed (if so, how long)? @ -[No] Were there social determinants of health that impacted care today? How? (Homelessness, low income, unemployed, alcoholism, drug addiction, transportation, low edu. Level, literacy, decrease access to med. care, alf, rehab)? @ -[No] Was there de-escalation of care discussed even if they declined (Discuss DNR or withdrawal of care, Hospice)? DNR status @ -[No] What co-morbidities impacted this encounter? (DM, HTN, Smoking, COPD, CAD, Cancer, CVA, ARF, Chemo, Hep., AIDS, mental health diagnosis, sleep apnea, morbid obesity)? @ -[None] Was patient admitted / discharged? Hospital course, mention meds given and route, prescriptions, significant lab abnormalities, going to OR and other pertinent info. @ -Discharged. This is a pleasant 87-year-old male presents to the emergency department with fall. Patient had a thorough history and physical exam performed. Physical exam is essentially unremarkable. He is very pleasant. The small abrasion to left elbow. Left ribs without ecchymosis or crepitus. Full and equal chest rise. Patient had x-rays and CT imaging which were negative. I discussed results in detail the patient verbalized understanding and all questions were addressed. He is agreeable with the plan for discharge home. He is able to ambulate with a steady gait. He says discussed with , ED attending who agrees with plan of care Undiagnosed new problem with uncertain prognosis? @ -[No] Drug Therapy requiring intensive monitoring for toxicity (Heparin, Nitro, Insulin, Cardizem)? @ -[No] Were any procedures done? @ -[No] Diagnosis/symptom? @ -Fall Left elbow abrasion Acute, or Chronic, or Acute on Chronic? @ -Acute Uncomplicated (without systemic symptoms) or Complicated (systemic symptoms)? @ -Uncomplicated Side effects of treatment? @ -[No] Exacerbation, Progression, or Severe Exacerbation? @ -[No] Poses a threat to life or bodily function? How? (Chest pain, [place], [place], pneumonia, PE, COPD, DKA, ARF, appy, cholecystitis, CVA, Diverticulitis, Homicidal, Suicidal, threat to staff... and all critical care pts) @ -Low likelihood Disposition Clinical Impression: Fall Disposition: HOME SELF-CARE Condition: Stable Instructions (If sedation given, give patient instructions): Fall Prevention for Older Adults (ED), Abrasion (ED), Fall Prevention (ED) Additional Instructions: PLease apply bacitracin to left elbow Can take tylenol or motrin for aches and pains Monitor symptoms closely Return if increased falls Is patient prescribed a controlled substance at d/c from ED?: No Referrals: Devan Dupont MD [Primary Care Provider] - 1-2 days Time of Disposition: 12:31
--- NOTE | 2023-04-26 13:13 | CT ---
EXAMINATION TYPE: CT brain dalilaine wo con DATE OF EXAM: 04/26/2023 COMPARISON: Head CT dated 01/13/2018 HISTORY: Fall CT DLP: 1407.7 mGycm Automated exposure control for dose reduction was used. TECHNIQUE: CT scan of the head and cervical spine are performed without contrast. FINDINGS: Head CT: The ventricles, basal cisterns and sulci over the convexities are within normal limits for the patien t's age and there is no mass effect or shift of midline structures. There is moderate density in the periventricular white matter consistent with chronic ischemic white matter demyelination. There is a remote lacunar infarct in the left basal ganglia which was not present on the prior study dated 01/13/2018. There is a remote infarct in the left cerebellar hemisphere which was seen previousl y. There is no acute intra or extra-axial hemorrhage. The calvarium is intact and the paranasal sinuses are well aerated. CT cervical spine: The craniovertebral junction relationships and prevertebral soft tissues are normal. The vertebral holli dies are normal in height and alignment and there is no fracture or subluxation. There is mild degenerative disc disease at the C2-3, C3-4, C4-5 levels where there is mild spondylosi s and disc space narrowing. There is moderate degenerative disease at C5-6 and C6-7 levels. There is mild to moderate facet arthropathy throughout the cervical region. There is no bony encroachment of the cervical canal. There is moderate bony neural foraminal stenosis at the C4-5 level on the left and at C6-7 on the rig ht. IMPRESSION: 1. No acute bleed or mass effect intracranially. Chronic ischemic changes as described above. 2. Degenerative changes cervical spine without evidence of acute trauma.
[2023-04-26 13:26] VITALS: PULSE 70; RESP 18
[2023-04-26 14:38] VITALS: BP 121/84; TEMP 98.1
== END 2023-04-26 14:48 | disposition home or self-care (01) ==
LOC: EC 06:47
DX: S50.312A Abrasion of left elbow, initial encounter (principal); E78.5 Hyperlipidemia, unspecified; I10 Essential (primary) hypertension; M16.0 Bilateral primary osteoarthritis of hip; Z79.82 Long term (current) use of aspirin; Z79.899 Other long term (current) drug therapy; W18.30XA Fall on same level, unspecified, initial encounter
CPT/HCPCS: 70450; 72125; 73502; 99285

== ENCOUNTER 2023-05-03 20:49 | Inpatient (IN) | payer BC, MEDICARE ==
[2023-05-03 21:08] LABS: Glucose,Whole Blood 159 mg/dL (70-110)
[2023-05-03] MEDS ORDERED: ACETAMINOPHEN TAB 500 MG TAB PO STA (21:23)
[2023-05-03] MEDS ORDERED: IBUPROFEN 600 MG TAB PO STA (21:23)
[2023-05-03] MEDS ORDERED: SODIUM CHLORIDE 0.9% 1,000 ML IV STA (21:23)
--- NOTE | 2023-05-03 21:49 | ED ---
Altered Mental Status HPI - General Chief Complaint: Altered Mental Status Stated Complaint: Confusion Time Seen by Provider: 05/03/23 21:19 Source: EMS, RN notes reviewed, old records reviewed Mode of arrival: EMS Limitations: no limitations - History of Present Illness Initial Comments: This is an 87-year-old male the ER today. Patient Dese for evaluation regards to altered mental status found to have fever. Patient is unable to provide history history obtained from EMS who presents history from staff. Patient's found of fever with altered mental status MD Complaint: altered mental status, confusion, weakness -: unknown Severity: severe Consistency of Symptoms: getting worse Context: recent fever Associated Symptoms: weakness Treatments Prior to Arrival: IV fluid, oxygen - Related Data Home Medications Medication Instructions Recorded Confirmed [place]-3 Fatty Acids/Fish Oil [Fish 1 cap PO DAILY@79901/13/18 05/03/23 Oil 1,000 mg Softgel] Simvastatin [Zocor] 20 mg PO HS@199901/13/18 05/03/23 Tamsulosin HCl [Flomax] 0.4 mg PO HS@79901/13/18 05/03/23 lisinopriL [Prinivil] 20 mg PO BID@08,199901/13/18 05/03/23 Calcium Carbonate [Calcium] 600 mg PO DAILY@79903/03/18 05/03/23 Cholecalciferol [Vitamin D3 (25 50 mcg PO HS@199905/03/23 05/03/23 Mcg = 1000 Iu)] Dorzolamide/Timolol/Pf 1 drop RIGHT EYE BID@0800,1700 05/03/23 05/03/23 [Dorzolamide 2%-Timolol 0.5%] Furosemide [Lasix] 20 mg PO DAILY@0805/03/23 05/03/23 L.acidoph,Paracasei, B.lactis 1 cap PO HS@199905/03/23 05/03/23 [Probiotic] Melatonin 20 mg PO HS@199905/03/23 05/03/23 Niacin [Niavasc] 1,000 mg PO HS@199905/03/23 05/03/23 allopurinoL [Zyloprim] 100 mg PO DAILY@0800 05/03/23 05/03/23 Previous Rx's Medication Instructions Recorded Lidocaine 5% Patch [Lidoderm 5% 1 patch TOPICAL DAILY #10 patch 04/26/23 Patch] Apixaban [Eliquis] 5 mg PO BID tab 05/10/23 Famotidine [Pepcid] 20 mg PO HS tab 05/10/23 Ipratropium-Albuterol Nebulize 3 ml INHALATION RT-QID PRN each 05/10/23 [Duoneb 0.5 mg-3 mg/3 ml Soln] Metoprolol Tartrate [Lopressor] 25 mg PO BID tab 05/10/23 Moxifloxacin HCl [Avelox] 400 mg PO DAILY 7 Days #7 tab 05/10/23 Potassium Chloride ER [K-Dur 20] 20 meq PO DAILY #30 tab 05/10/23 Allergies Allergy/AdvReac Type Severity Reaction Status Date / Time No Known Allergies Allergy Verified 05/03/23 23:27 Review of Systems ROS Statement: Those systems with pertinent positive or pertinent negative responses have been documented in the HPI. ROS Other: All systems not noted in ROS Statement are negative. 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 glaucoma sx Past Psychological History: No Psychological Hx Reported Smoking Status: Never smoker Past Alcohol Use History: Rare Past Drug Use History: None Reported - Past Family History Father Additional Family Medical History / Comment(s): from a "slow heart" Mother Family Medical History: CVA/TIA General Exam General appearance: alert, in no apparent distress Head exam: Present: atraumatic, normocephalic, normal inspection Eye exam: Present: normal appearance, PERRL, EOMI. Absent: scleral icterus, conjunctival injection, periorbital swelling ENT exam: Present: normal exam, mucous membranes moist Neck exam: Present: normal inspection. Absent: tenderness, meningismus, lymphadenopathy Respiratory exam: Present: normal lung sounds bilaterally. Absent: respiratory distress, wheezes, rales, rhonchi, stridor Cardiovascular Exam: Present: regular rate, normal rhythm, normal heart sounds. Absent: systolic murmur, diastolic murmur, rubs, gallop, clicks GI/Abdominal exam: Present: soft, normal bowel sounds. Absent: distended, tenderness, guarding, rebound, rigid Extremities exam: Present: normal inspection, full ROM, normal capillary refill. Absent: tenderness, pedal edema, joint swelling, calf tenderness Back exam: Present: normal inspection Neurological exam: Present: alert, oriented X3, CN II-XII intact Psychiatric exam: Present: normal affect, normal mood Skin exam: Present: warm, dry, intact, normal color. Absent: rash Course Vital Signs 05/03/23 05/03/23 05/03/23 20:53 22:41 23:49 Temperature 101.6 F H 98.1 F Pulse Rate 89 81 Pulse Rate [ Pulse Oximetery ] Respiratory 18 18 Rate Blood Pressure 135/73 105/78 Blood Pressure [Right Arm] O2 Sat by Pulse 95 96 Oximetry 05/04/23 05/04/23 05/04/23 01:15 02:06 02:13 Temperature Pulse Rate 70 70 68 Pulse Rate [ Pulse Oximetery ] Respiratory 18 Rate Blood Pressure 127/86 Blood Pressure [Right Arm] O2 Sat by Pulse 94 L Oximetry 05/04/23 05/04/23 05/04/23 06:10 14:00 15:00 Temperature Pulse Rate 71 88 Pulse Rate [ Pulse Oximetery ] Respiratory 20 18 17 Rate Blood Pressure 93/53 109/99 Blood Pressure [Right Arm] O2 Sat by Pulse 97 95 Oximetry 05/04/23 05/04/23 05/04/23 18:20 20:00 23:42 Temperature 100.4 F H 99.8 F H 98.7 F Pulse Rate Pulse Rate [ 87 89 71 Pulse Oximetery ] Respiratory 17 20 20 Rate Blood Pressure Blood Pressure 134/72 131/107 119/69 [Right Arm] O2 Sat by Pulse 92 L 91 L 94 L Oximetry 05/05/23 05/05/23 05/05/23 04:00 08:00 12:00 Temperature 98.9 F 98.6 F Pulse Rate Pulse Rate [ 89 79 78 Pulse Oximetery ] Respiratory 20 20 18 Rate Blood Pressure Blood Pressure 108/62 140/95 136/72 [Right Arm] O2 Sat by Pulse 98 94 L 94 L Oximetry 05/05/23 05/05/23 14:00 15:20 Temperature Pulse Rate Pulse Rate [ 78 72 Pulse Oximetery ] Respiratory 18 18 Rate Blood Pressure Blood Pressure 179/84 [Right Arm] O2 Sat by Pulse 95 Oximetry - Reevaluation(s) Reevaluation #1: 05/03/23 23:43 Medical records reviewed Reevaluation #2: Patient symptoms are relatively unchanged Reevaluation #3: Patient informed results and questions answered Reevaluation #4: 05/03/23 23:43 Was pt. sent in by a medical professional or institution (, JADE, SOURCING INTERN, urgent care, hospital, or residential...) When possible be specific @ -no Did you speak to anyone other than the patient for history (EMS, parent, family, police, friend...)? What history was obtained from this source @ -no Did you review nursing and triage notes (agree or disagree)? Why? @ -agree Are old charts reviewed (outside hosp., previous admission, EMS record, old EKG, old radiological studies, urgent care reports/EKG's, residential records)? Report findings @ -yes Differential Diagnosis (chest pain, altered mental status, abdominal pain women, abdominal pain men, vaginal bleeding, weakness, fever, dyspnea, syncope, headache, dizziness, GI bleed, back pain, seizure, CVA, palpatations, mental health, musculoskeletal)? @ -prior EKG interpreted by me (3pts min.). @ -yes X-rays interpreted by me (1pt min.). @ -yes positive for pneumonia CT interpreted by me (1pt min.). @ -no U/S interpreted by me (1pt. min.). @ -no What testing was considered but not performed or refused? (CT, X-rays, U/S, labs)? Why? @ -none What meds were considered but not given or refused? Why? @ -none Did you discuss the management of the patient with other professionals (professionals i.e. JAED Foreman, SOURCING INTERN, lab, RT, psych nurse, social work lecturer, tableau report developer, teacher, public information officer, case filler)? Give summary @ -no Was smoking cessation discussed for >3mins.? @ -no Was critical care preformed (if so, how long)? @ -no Were there social determinants of health that impacted care today? How? (Homelessness, low income, unemployed, alcoholism, drug addiction, transportation, low edu. Level, literacy, decrease access to med. care, assisted, rehab)? @ -none Was there de-escalation of care discussed even if they declined (Discuss DNR or withdrawal of care, Hospice)? DNR status @ -no What co-morbidities impacted this encounter? (DM, HTN, Smoking, COPD, CAD, Cancer, CVA, ARF, Chemo, Hep., AIDS, mental health diagnosis, sleep apnea, morbid obesity)? @ -none Was patient admitted / discharged? Hospital course, mention meds given and route, prescriptions, significant lab abnormalities, going to OR and other pertinent info. @ - 87 male to the emergency department for evaluation today. Patient presents today for evaluation regards to fever with pneumonia, patient is in no acute distress does have baseline altered mental status does appear to be maybe mildly worse at baseline. Patient be admitted for IV antibiotics Admitted Undiagnosed new problem with uncertain prognosis? @ -no Drug Therapy requiring intensive monitoring for toxicity (Heparin, Nitro, Insulin, Cardizem)? @ -no Were any procedures done? @ -no Diagnosis/symptom? @ -Fever, pneumonia, altered mental status Acute, or Chronic, or Acute on Chronic? @ -Acute Uncomplicated (without systemic symptoms) or Complicated (systemic symptoms)? @ -Complicated Side effects of treatment? @ -no Exacerbation, Progression, or Severe Exacerbation? @ -exacerbation Poses a threat to life or bodily function? How? (Chest pain, [place], [place], pneumonia, PE, COPD, DKA, ARF, appy, cholecystitis, CVA, Diverticulitis, Homicidal, Suicidal, threat to staff... and all critical care pts) @ -yes Reevaluation #5: 05/03/23 23:44 Differential Fever: Pneumonia, viral URI, endocarditis, myocarditis, pericarditis, otitis, sinusitis, peritonsillar Abscess, retropharyngeal Abscess, epiglottitis, peritonitis, appendicitis, Miranda cystitis, diverticulitis, hepatitis, colitis, UTI, PID, TOA, pyelonephritis, prostatitis, epididymitis, meningitis, encephali tis, pulmonary embolism, CVA, thyroid storm, pancreatitis, adrenal crisis, cavernous sinus thrombosis, this is not meant to be an all-inclusive list. - Consultations Consultation #1: Admitting physician survey to admit this patient Medical Decision Making - Medical Decision Making 87 male to the emergency department for evaluation today. Patient presents today for evaluation regards to fever with pneumonia, patient is in no acute distress does have baseline altered mental status does appear to be maybe mildly worse at baseline. Patient be admitted for IV antibiotics - Lab Data Result diagrams: 05/10/23 04:24 05/10/23 04:24 Lab Results 05/03/23 05/03/23 05/03/23 Range/Units 21:07 21:54 21:54 WBC 12.1 H (3.8-10.6) k/uL RBC 3.83 L (4.30-5.90) m/uL Hgb 13.5 (13.0-17.5) gm/dL Hct 40.9 (39.0-53.0) % MCV 106.9 H (80.0-100.0) fL MCH 35.3 H (25.0-35.0) pg MCHC 33.0 (31.0-37.0) g/dL RDW 13.1 (11.5-15.5) % Plt Count 214 (150-450) k/uL MPV 8.2 Neutrophils % 91 % Lymphocytes % 4 % Monocytes % 4 % Eosinophils % 1 % Basophils % 0 % Neutrophils # 10.9 H (1.3-7.7) k/uL Lymphocytes # 0.5 L (1.0-4.8) k/uL Monocytes # 0.5 (0-1.0) k/uL Eosinophils # 0.1 (0-0.7) k/uL Basophils # 0.0 (0-0.2) k/uL Macrocytosis Moderate PT 15.1 H (10.0-12.5) sec INR 1.5 H (<1.2) APTT 25.3 (22.0-30.0) sec Sodium (137-145) mmol/L Potassium (3.5-5.1) mmol/L Chloride (98-107) mmol/L Carbon Dioxide (22-30) mmol/L Anion Gap mmol/L BUN (9-20) mg/dL Creatinine (0.66-1.25) mg/dL Est GFR (CKD-EPI)AfAm (>60 ml/min/1.73 sqM) Est GFR (CKD-EPI)NonAf (>60 ml/min/1.73 sqM) Glucose (74-99) mg/dL POC Glucose (mg/dL) 159 H (70-110) mg/dL POC Glu Die Sizer ID Ricarda Pemberton Calcium (8.4-10.2) mg/dL Phosphorus (2.5-4.5) mg/dL Magnesium (1.6-2.3) mg/dL Total Bilirubin (0.2-1.3) mg/dL AST (17-59) U/L ALT (4-49) U/L Alkaline Phosphatase (38-126) U/L Troponin I (0.000-0.034) ng/mL Total Protein (6.3-8.2) g/dL Albumin (3.5-5.0) g/dL TSH (0.465-4.680) mIU/L Influenza Type A (PCR) (Not Detectd) Influenza Type B (PCR) (Not Detectd) RSV (PCR) (Not Detectd) SARS-CoV-2 (PCR) (Not Detectd) 05/03/23 05/03/23 05/03/23 Range/Units 21:54 21:54 22:45 WBC (3.8-10.6) k/uL RBC (4.30-5.90) m/uL Hgb (13.0-17.5) gm/dL Hct (39.0-53.0) % MCV (80.0-100.0) fL MCH (25.0-35.0) pg MCHC (31.0-37.0) g/dL RDW (11.5-15.5) % Plt Count (150-450) k/uL MPV Neutrophils % % Lymphocytes % % Monocytes % % Eosinophils % % Basophils % % Neutrophils # (1.3-7.7) k/uL Lymphocytes # (1.0-4.8) k/uL Monocytes # (0-1.0) k/uL Eosinophils # (0-0.7) k/uL Basophils # (0-0.2) k/uL Macrocytosis PT (10.0-12.5) sec INR (<1.2) APTT (22.0-30.0) sec Sodium 138 (137-145) mmol/L Potassium 3.6 (3.5-5.1) mmol/L Chloride 107 (98-107) mmol/L Carbon Dioxide 17 L (22-30) mmol/L Anion Gap 14 mmol/L BUN 20 (9-20) mg/dL Creatinine 0.80 (0.66-1.25) mg/dL Est GFR (CKD-EPI)AfAm >90 (>60 ml/min/1.73 sqM) Est GFR (CKD-EPI)NonAf 80 (>60 ml/min/1.73 sqM) Glucose 160 H (74-99) mg/dL POC Glucose (mg/dL) (70-110) mg/dL POC Glu Die Sizer ID Calcium 8.9 (8.4-10.2) mg/dL Phosphorus 3.1 (2.5-4.5) mg/dL Magnesium 1.6 (1.6-2.3) mg/dL Total Bilirubin 0.6 (0.2-1.3) mg/dL AST 24 (17-59) U/L ALT 15 (4-49) U/L Alkaline Phosphatase 153 H (38-126) U/L Troponin I 0.117 H* (0.000-0.034) ng/mL Total Protein 6.5 (6.3-8.2) g/dL Albumin 3.5 (3.5-5.0) g/dL TSH 1.010 (0.465-4.680) mIU/L Influenza Type A (PCR) Not Detected (Not Detectd) Influenza Type B (PCR) Not Detected (Not Detectd) RSV (PCR) Not Detected (Not Detectd) SARS-CoV-2 (PCR) Not Detected (Not Detectd) - EKG Data -: EKG Interpreted by Me (EKG is A. fib 84 QRS 154 QTc 4:30) - Radiology Data Radiology results: report reviewed (X-ray is positive for pneumonia), image reviewed Disposition Clinical Impression: Altered mental status, Fever, Pneumonia, Weakness, Delirium due to general med ical condition Disposition: ADMITTED IP TO THIS HOSP Condition: Fair Is patient prescribed a controlled substance at d/c from ED?: No Time of Disposition: 01:35
[2023-05-03 22:12] LABS: Basophils % (A) 0 %; Eosinophils # (A) 0.1 k/uL (0-0.7); Eosinophils % (A) 1 %; HCT 40.9 % (39.0-53.0); HGB 13.5 gm/dL (13.0-17.5); Lymphocytes # (A) 0.5 k/uL (1.0-4.8); Lymphocytes % (A) 4 %; MCH 35.3 pg (25.0-35.0); MCV 106.9 fL (80.0-100.0); Macrocytosis Moderate; Mean Platelet Volume 8.2; Monocytes # (A) 0.5 k/uL (0-1.0); Monocytes % (A) 4 %; Neutrophils # (A) 10.9 k/uL (1.3-7.7); Neutrophils % (A) 91 %; Platelet Count 214 k/uL (150-450); RBC 3.83 m/uL (4.30-5.90); RDW 13.1 % (11.5-15.5); WBC 12.1 k/uL (3.8-10.6)
[2023-05-03 22:23] LABS: ALT 15 U/L (4-49); AST 24 U/L (17-59); African American GFR (CKD) >90 (>60 ml/min/1.73 sqM); Albumin 3.5 g/dL (3.5-5.0); Alkaline Phosphatase 153 U/L (38-126); Anion Gap 14 mmol/L; Blood Urea Nitrogen 20 mg/dL (9-20); Calcium 8.9 mg/dL (8.4-10.2); Carbon Dioxide 17 mmol/L (22-30); Chloride 107 mmol/L (98-107); Glucose 160 mg/dL (74-99); Magnesium 1.6 mg/dL (1.6-2.3); Non-African American GFR(CKD) 80 (>60 ml/min/1.73 sqM); Phosphorus 3.1 mg/dL (2.5-4.5); Potassium 3.6 mmol/L (3.5-5.1); Sodium 138 mmol/L (137-145); Total Bilirubin 0.6 mg/dL (0.2-1.3); Total Protein 6.5 g/dL (6.3-8.2)
[2023-05-03 22:25] LABS: INR 1.5 (<1.2); Partial Thromboplastin Time 25.3 sec (22.0-30.0); Prothrombin Time 15.1 sec (10.0-12.5)
--- NOTE | 2023-05-03 22:55 | XR ---
EXAMINATION TYPE: XR chest 1V portable DATE OF EXAM: 05/03/2023 COMPARISON: 04/26/2023 INDICATION: Chest pain TECHNIQUE: Single frontal view of the chest is obtained. FINDINGS: The heart size is normal. The pulmonary vasculature is somewhat prominent.. Right perihilar infiltrate is present. Correlate for pneumonia. Underlying mass is not excluded. This should be followed to clearing. IMPRESSION: 1. Right perihilar infiltrate. Correlate for pneumonia. Follow-up is recommended.
[2023-05-04] MEDS ORDERED: IPRATROPIUM-ALBUTEROL 3 ML NEB INHALATION STA (01:34)
[2023-05-04] MEDS ORDERED: PNEUMONIA PROTOCOL UTILIZED 1 EACH MISC PO PRN (01:34)
[2023-05-04] MEDS ORDERED: AZITHROMYCIN 500 MG in SODIUM CHLORIDE 0.9% 250 ML IVPB STA (01:34)
[2023-05-04] MEDS ORDERED: IPRATROPIUM-ALBUTEROL 3 ML NEB INHALATION PRN (01:34)
[2023-05-04] MEDS: SODIUM CHLORIDE 0.9% 1,000 ML IV SCH ×3 (04:53→21:51)
[2023-05-04 12:51] LABS: Appearance,Urine Clear (Clear); Bilirubin,Urine Negative (Negative); Blood,Urine Negative (Negative); Color,Urine Light Yellow; Glucose,Urine (UA) Negative (Negative); Ketones,Urine Negative (Negative); Leukocyte Esterase,Urine Negative (Negative); Nitrite,Urine Negative (Negative); PH, Urine 5.5 (5.0-8.0); Protein,Urine Trace (Negative); Specific Gravity,Urine 1.013 (1.001-1.035); Urobilinogen,Urine <2.0 mg/dL (<2.0)
[2023-05-04] MEDS: DORZOLAMIDE-TIMOLOL 2.23%/0.68 10ML BTL RIGHT EYE SCH (18:00)
[2023-05-04] MEDS ORDERED: HEPARIN SODIUM 1,000 UN/ML (10ML VL) IV PRN (19:13)
[2023-05-04] MEDS ORDERED: HEPARIN SOD,PORK IN 0.45% NACL 25,000 UNIT in 0.45% NACL 1 250ML.BAG IV SCH (19:15)
[2023-05-04 19:47] LABS: Basophils % (A) 0 %; Eosinophils % (A) 0 %; HCT 38.3 % (39.0-53.0); HGB 12.5 gm/dL (13.0-17.5); Lymphocytes # (A) 0.6 k/uL (1.0-4.8); Lymphocytes % (A) 4 %; MCH 34.6 pg (25.0-35.0); MCHC 32.7 g/dL (31.0-37.0); MCV 105.7 fL (80.0-100.0); Macrocytosis Moderate; Mean Platelet Volume 8.3; Monocytes # (A) 0.5 k/uL (0-1.0); Monocytes % (A) 3 %; Neutrophils # (A) 12.3 k/uL (1.3-7.7); Neutrophils % (A) 91 %; Platelet Count 204 k/uL (150-450); RBC 3.62 m/uL (4.30-5.90); RDW 13.6 % (11.5-15.5); WBC 13.6 k/uL (3.8-10.6)
[2023-05-04 19:58] LABS: INR 1.5 (<1.2); Partial Thromboplastin Time 28.6 sec (22.0-30.0); Prothrombin Time 15.4 sec (10.0-12.5)
[2023-05-04] MEDS: CHOLECALCIFEROL 25 MCG (1000 IU) TABLET PO SCH (20:25)
[2023-05-04] MEDS: NIACIN TR 500 MG CAPLET PO SCH (20:27)
[2023-05-04] MEDS ORDERED: METOPROLOL TARTRATE 12.5 MG TAB PO SCH (21:00)
[2023-05-04] MEDS: ATORVASTATIN 10 MG TAB PO SCH (21:51)
[2023-05-05] MEDS: SODIUM CHLORIDE 0.9% 1,000 ML IV SCH ×2 (09:11→22:32)
[2023-05-05] MEDS: TAMSULOSIN 0.4 MG CAP.ER.24H PO SCH (09:12)
[2023-05-05] MEDS: AZITHROMYCIN 500 MG TAB PO SCH (09:12)
[2023-05-05] MEDS: FUROSEMIDE 20 MG TAB PO SCH (09:12)
[2023-05-05] MEDS: allopurinoL 100 MG TAB PO SCH (09:12)
[2023-05-05] MEDS: APIXABAN 5 MG TAB PO SCH ×2 (09:13→20:10)
[2023-05-05] MEDS: METOPROLOL TARTRATE 25 MG TAB PO SCH ×2 (09:13→20:10)
[2023-05-05 10:26] LABS: Basophils % (A) 0 %; Eosinophils # (A) 0.1 k/uL (0-0.7); Eosinophils % (A) 1 %; HCT 40.6 % (39.0-53.0); Lymphocytes # (A) 0.8 k/uL (1.0-4.8); Lymphocytes % (A) 7 %; MCH 34.6 pg (25.0-35.0); MCHC 32.1 g/dL (31.0-37.0); MCV 107.8 fL (80.0-100.0); Macrocytosis Moderate; Mean Platelet Volume 8.3; Monocytes # (A) 0.4 k/uL (0-1.0); Monocytes % (A) 3 %; Neutrophils # (A) 9.8 k/uL (1.3-7.7); Neutrophils % (A) 87 %; Platelet Count 212 k/uL (150-450); RBC 3.77 m/uL (4.30-5.90); WBC 11.2 k/uL (3.8-10.6)
[2023-05-05 10:35] LABS: INR 1.4 (<1.2); Prothrombin Time 14.7 sec (10.0-12.5)
[2023-05-05 10:42] LABS: African American GFR (CKD) >90 (>60 ml/min/1.73 sqM); Anion Gap 12 mmol/L; Blood Urea Nitrogen 18 mg/dL (9-20); Carbon Dioxide 20 mmol/L (22-30); Chloride 109 mmol/L (98-107); Glucose 124 mg/dL (74-99); Non-African American GFR(CKD) 89 (>60 ml/min/1.73 sqM); Potassium 2.9 mmol/L (3.5-5.1); Sodium 141 mmol/L (137-145)
[2023-05-05 10:58] LABS: Calcium 8.2 mg/dL (8.4-10.2)
[2023-05-05] MEDS ORDERED: Potassium Replacement Protocol 1 EACH MISC MISCELLANE PRN (11:18)
[2023-05-05] MEDS: POTASSIUM BICARBONATE/CIT AC 20 MEQ TABLET.EFF PO SCH ×3 (11:46→16:13)
[2023-05-05] MEDS: DORZOLAMIDE-TIMOLOL 2.23%/0.68 10ML BTL RIGHT EYE SCH ×2 (11:47→16:13)
[2023-05-05] MEDS ORDERED: POTASSIUM BICARBONATE/CIT AC 20 MEQ TABLET.EFF NG-TUBE SCH (12:00)
--- NOTE | 2023-05-05 15:05 | P.CRDCN ---
History of Present Illness Consult date: 05/05/23 Reason for Consult (text): Elevated troponin History of present illness: The patient is an 87-year-old male who follows in the office with Dr. Qureshi. He was brought to the emergency room for mental status changes and fever. He was subsequently diagnosed with pneumonia and during that workup, troponins were drawn and found to have mildly abnormal with a flat trend. At the time of my exam the patient denied any chest pain or chest pressure. No dyspnea at rest. DIAGNOSTICS: EKG shows atrial fibrillation with right bundle branch block and left anterior fascicular block Chest x-ray shows right perihilar infiltrate consistent with pneumonia Lab data: CBC 11.2, hemoglobin 13.0, hematocrit 40.6, platelet 212, sodium 141, potassium 2.9, BUN 18, creatinine 0.62, magnesium 1.8, AST 24, ALT 15, troponin 0.11, 0.17, 0.13, TSH 1.01 REVIEW OF SYSTEMS: No cough or expectoration. No diaphoresis. Patient denies headache, dizziness, blurred vision, double vision. Patient denies any stomach discomfort. No nausea, vomiting. No hematochezia. No hematemesis. Denies any black stools or blood in his stools. Denies dysuria or hematuria. No muscle weakness or numbness. PHYSICAL EXAMINATION: This is a 87-year-old male in no apparent distress at the time of my examination. HEENT: Head is atraumatic, normocephalic. Pupils are equal, round. There is no jugular venous distention. No carotid bruit is heard. CHEST EXAMINATION: Lungs are clear to auscultation. No chest wall tenderness is noted on palpation or with deep breathing. HEART EXAMINATION: Irregular rate and rhythm. S1, S2 heard. No murmurs, gallops or rub. ABDOMEN: Soft, nontender. Bowel sounds are heard. No organomegaly noted. EXTREMITIES: 2+ peripheral pulses with no evidence of peripheral edema and no calf tenderness noted. NEUROLOGIC EXAMINATION: Patient is awake, alert and oriented x3. 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 glaucoma sx Past Anesthesia/Blood Transfusion Reactions: No Reported Reaction Past Psychological History: No Psychological Hx Reported Smoking Status: Former smoker Past Alcohol Use History: Rare Past Drug Use History: None Reported - Past Family History Father Additional Family Medical History / Comment(s): from a "slow heart" Mother Family Medical History: CVA/TIA Medications and Allergies Home Medications Medication Instructions Recorded Confirmed Type [place]-3 Fatty Acids/Fish Oil [Fish 1 cap PO DAILY@0800 01/13/18 05/03/23 History Oil 1,000 mg Softgel] Simvastatin [Zocor] 20 mg PO HS@199901/13/18 05/03/23 History Tamsulosin HCl [Flomax] 0.4 mg PO HS@79901/13/18 05/03/23 History lisinopriL [Prinivil] 20 mg PO BID@799,199901/13/18 05/03/23 History Calcium Carbonate [Calcium] 600 mg PO DAILY@0800 03/03/18 05/03/23 History Lidocaine 5% Patch [Lidoderm 5% 1 patch TOPICAL DAILY #10 patch 04/26/2308/21 Rx Patch] Cholecalciferol [Vitamin D3 (25 50 mcg PO HS@199905/03/23 05/03/23 History Mcg = 1000 Iu)] Dorzolamide/Timolol/Pf 1 drop RIGHT EYE BID@0800,1700 05/03/23 05/03/23 History [Dorzolamide 2%-Timolol 0.5%] Furosemide [Lasix] 20 mg PO DAILY@0800 05/03/23 05/03/23 History Ibuprofen [Motrin] 800 mg PO QID@02,08,14,20 05/03/23 05/03/23 History L.acidoph,Paracasei, B.lactis 1 cap PO HS@199905/03/23 05/03/23 History [Probiotic] Melatonin 20 mg PO HS@199905/03/23 05/03/23 History Niacin [Niavasc] 1,000 mg PO HS@199905/03/23 05/03/23 History Vitamin A 2,400 mcg PO HS@199905/03/23 05/03/23 History Zolpidem [Ambien] 5 mg PO HS@199905/03/23 05/03/23 History allopurinoL [Zyloprim] 100 mg PO DAILY@0800 05/03/23 05/03/23 History Allergies Allergy/AdvReac Type Severity Reaction Status Date / Time No Known Allergies Allergy Verified 05/03/23 23:27 Physical Exam Vitals: Vital Signs Temp Pulse Resp BP BP Pulse Ox 05/05/23 14:00 78 18 05/05/23 12:00 78 18 136/72 94 L 05/05/23 08:00 98.6 F 79 20 140/95 94 L 05/05/23 04:00 98.9 F 89 20 108/62 98 05/04/23 23:42 98.7 F 71 20 119/69 94 L 05/04/23 20:00 99.8 F H 89 20 131/107 91 L 05/04/23 18:20 100.4 F H 87 17 134/72 92 L 05/04/23 15:00 17 109/99 Intake and Output 05/04/23 05/05/23 05/05/23 22:59 06:59 14:59 Intake Total 47.81 Output Total 850 Balance -802.19 Intake: Intake, IV Titration 47.81 Amount Heparin Sod,Pork in 0.45% 47.81 NaCl 25,000 unit In 0.45 % NaCl 1 250ml.bag @ 12 UNITS/KG/HR 8.437 mls/hr IV .Q24H [facility] Rx#: [id number] Output: Urine 850 Straight 850 Other: Voiding Method Urinal Urinal Urinal Diaper Diaper Diaper Weight 70.307 kg Results 05/05/23 09:47 05/05/23 09:47 Coagulation 05/04/23 05/05/23 05/05/23 Range/Units 19:19 00:50 09:47 PT 15.4 H 14.7 H (10.0-12.5) sec APTT 28.6 34.1 H (22.0-30.0) sec 05/05/23 Range/Units 09:47 PT (10.0-12.5) sec APTT 39.1 H (22.0-30.0) sec CBC 05/04/23 05/05/23 Range/Units 19:19 09:47 WBC 13.6 H 11.2 H (3.8-10.6) k/uL RBC 3.62 L 3.77 L (4.30-5.90) m/uL Hgb 12.5 L 13.0 (13.0-17.5) gm/dL Hct 38.3 L 40.6 (39.0-53.0) % Plt Count 204 212 (150-450) k/uL Comprehensive Metabolic Panel 05/05/23 Range/Units 09:47 Sodium 141 (137-145) mmol/L Potassium 2.9 L (3.5-5.1) mmol/L Chloride 109 H (98-107) mmol/L Carbon Dioxide 20 L (22-30) mmol/L BUN 18 (9-20) mg/dL Creatinine 0.62 L (0.66-1.25) mg/dL Glucose 124 H (74-99) mg/dL Calcium 8.2 L (8.4-10.2) mg/dL Current Medications Generic Name Dose Route Start Last Admin Trade Name Freq PRN Reason Stop Dose Admin Albuterol/Ipratropium 3 ml 05/04/23 01:34 Ipratropium-Albuterol 3 Ml Neb INHALATION RT-QID PRN Dyspnea Allopurinol 100 mg 05/05/23 08:00 05/05/23 09:12 Allopurinol 100 Mg Tab PO 100 mg DAILY@0800 [facility] Administration Apixaban 5 mg 05/05/23 09:00 05/05/23 09:13 Apixaban 5 Mg Tab PO 5 mg BID [facility] Administration Protocol Atorvastatin Calcium 10 mg 05/04/23 20:00 05/04/23 21:51 Atorvastatin 10 Mg Tab PO 10 mg HS@2000 [facility] Administration Azithromycin 500 mg 05/05/23 09:00 05/05/23 09:12 Azithromycin 500 Mg Tab PO 05/06/23 09:01 500 mg DAILY JUSTYNA Administration Protocol Cholecalciferol 50 mcg 05/04/23 20:00 05/04/23 20:25 Cholecalciferol 25 Mcg (1000 Iu) Tablet PO 50 mcg HS@2000 JUSTYNA Administration Dorzolamide/Timolol 1 drops 05/04/23 17:00 05/05/23 11:47 Dorzolamide-Timolol 2.23%/0.68 10ml Btl RIGHT EYE 1 drops BID@0800,1700 JUSTYNA Administration Furosemide 20 mg 05/05/23 08:00 05/05/23 09:12 Furosemide 20 Mg Tab PO 20 mg DAILY@0800 JUSTYNA Administration Sodium Chloride 1,000 mls @ 100 mls/hr 05/04/23 01:45 05/05/23 09:11 Saline 0.9% IV Not Given .Q10H JUSTYNA Ceftriaxone Sodium 2 gm/ 50 mls @ 100 mls/hr 05/05/23 23:00 Sodium Chloride IVPB 05/08/23 23:29 Q24H [facility] Protocol Metoprolol Tartrate 25 mg 05/05/23 09:00 05/05/23 09:13 Metoprolol Tartrate 25 Mg Tab PO 25 mg BID JUSTYNA Administration Miscellaneous Information 1 each 05/04/23 01:34 Pneumonia Protocol Utilized 1 Each Misc PO ONCE PRN Per Protocol Miscellaneous Information 1 each 05/05/23 11:18 Potassium Replacement Protocol 1 Each Misc MISCELLANE DAILY PRN Per Protocol Protocol Niacin 1,000 mg 05/04/23 20:00 05/04/23 20:27 Niacin Tr 500 Mg Caplet PO 1,000 mg HS@2000 JUSTYNA Administration Tamsulosin HCl 0.4 mg 05/05/23 08:00 05/05/23 09:12 Tamsulosin 0.4 Mg Cap.Er.24h PO 0.4 mg HS@0800 [facility] Administration Intake and Output 05/04/23 05/05/23 05/05/23 22:59 06:59 14:59 Intake Total 47.81 Output Total 850 Balance -802.19 Intake: Intake, IV Titration 47.81 Amount Heparin Sod,Pork in 0.45% 47.81 NaCl 25,000 unit In 0.45 % NaCl 1 250ml.bag @ 12 UNITS/KG/HR 8.437 mls/hr IV .Q24H [facility] Rx#: [id number] Output: Urine 850 Straight 850 Other: Voiding Method Urinal Urinal Urinal Diaper Diaper Diaper Weight 70.307 kg 05/05/23 09:47 05/05/23 09:47
--- NOTE | 2023-05-05 18:53 | P.HPIM ---
History of Present Illness H&P Date: 05/04/23 Chief Complaint: Altered mental status 87-year-old male patient with history of hypertension, hyperlipidemia, osteoarthritis, brought to ED by EMS for mental status change and fever; patient is unable to provide any history so all of the history is obtained from the EMS records according to which patient was found to have fever and Mental status change and was brought to ED for further evaluation Patient is being admitted to the hospital for altered mental status, pneumonia, elevated troponin and new onset atrial fibrillation EKG shows atrial fibrillation with right bundle branch block and left anterior fascicular block Chest x-ray shows right perihilar infiltrate consistent with pneumonia Lab data: CBC 11.2, hemoglobin 13.0, hematocrit 40.6, platelet 212, sodium 141, potassium 2.9, BUN 18, creatinine 0.62, magnesium 1.8, AST 24, ALT 15, troponin 0.11, 0.17, 0.13, TSH 1.01 Review of Systems ROS unobtainable: due to mental status Past Medical History Past Medical History: Hyperlipidemia, Hypertension, Osteoarthritis (OA), Prostate Disorder Additional Past Medical History / Comment(s): 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 glaucoma sx Past Psychological History: No Psychological Hx Reported Smoking Status: Never smoker Past Alcohol Use History: Rare Past Drug Use History: None Reported - Past Family History Father Additional Family Medical History / Comment(s): from a "slow heart" Mother Family Medical History: CVA/TIA Medications and Allergies Home Medications Medication Instructions Recorded Confirmed Type [place]-3 Fatty Acids/Fish Oil [Fish 1 cap PO DAILY@0800 01/13/18 05/03/23 History Oil 1,000 mg Softgel] Simvastatin [Zocor] 20 mg PO HS@199901/13/18 05/03/23 History Tamsulosin HCl [Flomax] 0.4 mg PO HS@0801/13/18 05/03/23 History lisinopriL [Prinivil] 20 mg PO BID@08,199901/13/18 05/03/23 History Calcium Carbonate [Calcium] 600 mg PO DAILY@0800 03/03/18 05/03/23 History Lidocaine 5% Patch [Lidoderm 5% 1 patch TOPICAL DAILY #10 patch 04/26/23 05/03/23 Rx Patch] Cholecalciferol [Vitamin D3 (25 50 mcg PO HS@199905/03/23 05/03/23 History Mcg = 1000 Iu)] Dorzolamide/Timolol/Pf 1 drop RIGHT EYE BID@0800,1700 05/03/23 05/03/23 History [Dorzolamide 2%-Timolol 0.5%] Furosemide [Lasix] 20 mg PO DAILY@0800 05/03/23 05/03/23 History Ibuprofen [Motrin] 800 mg PO QID@02,08,14,20 05/03/23 05/03/23 History L.acidoph,Paracasei, B.lactis 1 cap PO HS@199905/03/23 05/03/23 History [Probiotic] Melatonin 20 mg PO HS@199905/03/23 05/03/23 History Niacin [Niavasc] 1,000 mg PO HS@199905/03/23 05/03/23 History Vitamin A 2,400 mcg PO HS@199905/03/23 05/03/23 History Zolpidem [Ambien] 5 mg PO HS@199905/03/23 05/03/23 History allopurinoL [Zyloprim] 100 mg PO DAILY@0805/03/23 05/03/23 History Allergies Allergy/AdvReac Type Severity Reaction Status Date / Time No Known Allergies Allergy Verified 05/03/23 23:27 Physical Exam Vitals: Vital Signs Temp Pulse Resp BP Pulse Ox 05/04/23 06:10 71 20 93/53 97 05/04/23 02:13 68 05/04/23 02:06 70 05/04/23 01:15 70 18 127/86 94 L 05/03/23 23:49 98.1 F 05/03/23 22:41 81 18 105/78 96 05/03/23 20:53 101.6 F H 89 18 135/73 95 Intake and Output 05/03/23 05/04/23 05/04/23 22:59 06:59 14:59 Other: Weight 70.307 kg 87-year-old male in no apparent distress at the time of my examination. HEENT: Head is atraumatic, normocephalic. Pupils are equal, round. There is no jugular venous distention. No carotid bruit is heard. CHEST EXAMINATION: Lungs are clear to auscultation. No chest wall tenderness is noted on palpation or with deep breathing. HEART EXAMINATION: Irregular rate and rhythm. S1, S2 heard. No murmurs, gallops or rub. ABDOMEN: Soft, nontender. Bowel sounds are heard. No organomegaly noted. EXTREMITIES: 2+ peripheral pulses with no evidence of peripheral edema and no calf tenderness noted. NEUROLOGIC EXAMINATION: Patient is awake and alert Results CBC & Chem 7: 05/05/23 09:47 05/05/23 14:37 Labs: Abnormal Lab Results - Last 24 Hours (Table) 05/03/23 05/03/23 05/03/23 Range/Units 21:07 21:54 21:54 WBC 12.1 H (3.8-10.6) k/uL RBC 3.83 L (4.30-5.90) m/uL MCV 106.9 H (80.0-100.0) fL MCH 35.3 H (25.0-35.0) pg Neutrophils # 10.9 H (1.3-7.7) k/uL Lymphocytes # 0.5 L (1.0-4.8) k/uL PT 15.1 H (10.0-12.5) sec INR 1.5 H (<1.2) Carbon Dioxide (22-30) mmol/L Glucose (74-99) mg/dL POC Glucose (mg/dL) 159 H (70-110) mg/dL Alkaline Phosphatase (38-126) U/L Troponin I (0.000-0.034) ng/mL 05/03/23 05/03/23 05/04/23 Range/Units 21:54 21:54 08:03 WBC (3.8-10.6) k/uL RBC (4.30-5.90) m/uL MCV (80.0-100.0) fL MCH (25.0-35.0) pg Neutrophils # (1.3-7.7) k/uL Lymphocytes # (1.0-4.8) k/uL PT (10.0-12.5) sec INR (<1.2) Carbon Dioxide 17 L (22-30) mmol/L Glucose 160 H (74-99) mg/dL POC Glucose (mg/dL) (70-110) mg/dL Alkaline Phosphatase 153 H (38-126) U/L Troponin I 0.117 H* 0.176 H* (0.000-0.034) ng/mL Assessment and Plan Assessment: 1. Elevated troponin -- Patient denies any complaint of chest pain; initial troponin is elevated at 0.11 with slight upward trend of 0.17 - EKG reveals atrial fibrillation with right bundle branch block and left anterior fascicular block -- We will continue to trend troponin and monitor EKG; consult cardiology for further evaluation 2. New onset atrial fibrillation; persistent -- Patient has been placed on beta blockers and placed on anticoagulation -- Cardiology to evaluate and make further recommendations 3. Community-acquired pneumonia; chest x-ray reveals right perihilar infiltrate consistent with pneumonia -- Slightly elevated WBC at 11.2 -- Patient has been placed on IV Rocephin and azithromycin -- We will monitor CBC, CRP and pro-calcitonin periodically 4. Altered mental status likely toxic metabolic encephalopathy related to pneumonia 5. Hypotension; patient has history of hypertension; takes lisinopril 20 mg twice a day which is placed on hold -- Patient has been placed on low-dose beta blockers for new onset atrial fibrillation -- Monitor blood pressure closely and we will plan to resume antihypertensive therapy if blood pressure trends up 6. Hypokalemia; potassium 2.9 in ED; we will continue to supplement and monitor closely 7. History of hyperlipidemia; Zocor 20 mg daily at bedtime 8. BPH; Flomax 0.4 mg daily DVT prophylaxis; SCDs/anticoagulation CODE STATUS; DO NOT RESUSCITATE
--- NOTE | 2023-05-05 18:54 | P.PN ---
Subjective Progress Note Date: 05/05/23 87-year-old male patient with history of hypertension, hyperlipidemia, osteoarthritis, brought to ED by EMS for mental status change and fever; patient is unable to provide any history so all of the history is obtained from the EMS records according to which patient was found to have fever and Mental status change and was brought to ED for further evaluation Patient is being admitted to the hospital for altered mental status, pneumonia, elevated troponin and new onset atrial fibrillation EKG shows atrial fibrillation with right bundle branch block and left anterior fascicular block Chest x-ray shows right perihilar infiltrate consistent with pneumonia Lab data: CBC 11.2, hemoglobin 13.0, hematocrit 40.6, platelet 212, sodium 141, potassium 2.9, BUN 18, creatinine 0.62, magnesium 1.8, AST 24, ALT 15, troponin 0.11, 0.17, 0.13, TSH 1.01 Objective - Vital Signs Vital signs: Vital Signs Temp 98.6 F 05/05/23 08:00 Pulse 79 05/05/23 08:00 Resp 20 05/05/23 08:00 BP 140/95 05/05/23 08:00 Pulse Ox 94 L 05/05/23 08:00 FiO2 Intake & Output 05/04/23 05/05/23 05/05/23 18:59 06:59 18:59 Intake Total 47.81 Output Total 850 Balance -802.19 Weight 70.307 kg Intake: Intake, IV Titration 47.81 Amount Heparin Sod,Pork in 0.45% 47.81 NaCl 25,000 unit In 0.45 % NaCl 1 250ml.bag @ 12 UNITS/KG/HR 8.437 mls/hr IV .Q24H [facility] Rx#: [id number] Output: Urine 850 Straight 850 Other: Voiding Method Urinal Urinal Diaper Diaper - Exam 87-year-old male in no apparent distress at the time of my examination. Patient is very hard of hearing HEENT: Head is atraumatic, normocephalic. Pupils are equal, round. There is no jugular venous distention. No carotid bruit is heard. CHEST EXAMINATION: Lungs are clear to auscultation. No chest wall tenderness is noted on palpation or with deep breathing. HEART EXAMINATION: Irregular rate and rhythm. S1, S2 heard. No murmurs, gallops or rub. ABDOMEN: Soft, nontender. Bowel sounds are heard. No organomegaly noted. EXTREMITIES: 2+ peripheral pulses with no evidence of peripheral edema and no calf tenderness noted. NEUROLOGIC EXAMINATION: Patient is awake and alert - Labs CBC & Chem 7: 05/05/23 09:47 05/05/23 14:37 Labs: Abnormal Lab Results - Last 24 Hours (Table) 05/04/23 05/04/23 05/04/23 Range/Units 11:19 12:01 19:19 WBC 13.6 H (3.8-10.6) k/uL RBC 3.62 L (4.30-5.90) m/uL Hgb 12.5 L (13.0-17.5) gm/dL Hct 38.3 L (39.0-53.0) % MCV 105.7 H (80.0-100.0) fL Neutrophils # 12.3 H (1.3-7.7) k/uL Lymphocytes # 0.6 L (1.0-4.8) k/uL PT (10.0-12.5) sec INR (<1.2) APTT (22.0-30.0) sec Potassium (3.5-5.1) mmol/L Chloride (98-107) mmol/L Carbon Dioxide (22-30) mmol/L Creatinine (0.66-1.25) mg/dL Glucose (74-99) mg/dL Calcium (8.4-10.2) mg/dL Troponin I 0.133 H* (0.000-0.034) ng/mL Urine Protein Trace H (Negative) 05/04/23 05/05/23 05/05/23 Range/Units 19:19 00:50 09:47 WBC 11.2 H (3.8-10.6) k/uL RBC 3.77 L (4.30-5.90) m/uL Hgb (13.0-17.5) gm/dL Hct (39.0-53.0) % MCV 107.8 H (80.0-100.0) fL Neutrophils # 9.8 H (1.3-7.7) k/uL Lymphocytes # 0.8 L (1.0-4.8) k/uL PT 15.4 H (10.0-12.5) sec INR 1.5 H (<1.2) APTT 34.1 H (22.0-30.0) sec Potassium (3.5-5.1) mmol/L Chloride (98-107) mmol/L Carbon Dioxide (22-30) mmol/L Creatinine (0.66-1.25) mg/dL Glucose (74-99) mg/dL Calcium (8.4-10.2) mg/dL Troponin I (0.000-0.034) ng/mL Urine Protein (Negative) 05/05/23 05/05/23 05/05/23 Range/Units 09:47 09:47 09:47 WBC (3.8-10.6) k/uL RBC (4.30-5.90) m/uL Hgb (13.0-17.5) gm/dL Hct (39.0-53.0) % MCV (80.0-100.0) fL Neutrophils # (1.3-7.7) k/uL Lymphocytes # (1.0-4.8) k/uL PT 14.7 H (10.0-12.5) sec INR 1.4 H (<1.2) APTT 39.1 H (22.0-30.0) sec Potassium 2.9 L (3.5-5.1) mmol/L Chloride 109 H (98-107) mmol/L Carbon Dioxide 20 L (22-30) mmol/L Creatinine 0.62 L (0.66-1.25) mg/dL Glucose 124 H (74-99) mg/dL Calcium 8.2 L (8.4-10.2) mg/dL Troponin I (0.000-0.034) ng/mL Urine Protein (Negative) Microbiology - Last 24 Hours (Table) 05/03/23 22:22 Blood Culture - Preliminary Blood Assessment and Plan Assessment: 1. Elevated troponin -- Patient denies any complaint of chest pain; initial troponin is elevated at 0.11 with slight upward trend of 0.17 - EKG reveals atrial fibrillation with right bundle branch block and left anterior fascicular block -- We will continue to trend troponin and monitor EKG; consult cardiology for further evaluation 2. New onset atrial fibrillation; persistent -- Patient has been placed on beta blockers and placed on anticoagulation -- Cardiology to evaluate and make further recommendations 3. Community-acquired pneumonia; chest x-ray reveals right perihilar infiltrate consistent with pneumonia -- Slightly elevated WBC at 11.2 -- Patient has been placed on IV Rocephin and azithromycin -- We will monitor CBC, CRP and pro-calcitonin periodically 4. Altered mental status likely toxic metabolic encephalopathy related to pneumonia 5. Hypotension; patient has history of hypertension; takes lisinopril 20 mg twice a day which is placed on hold -- Patient has been placed on low-dose beta blockers for new onset atrial fibrillation -- Monitor blood pressure closely and we will plan to resume antihypertensive therapy if blood pressure trends up 6. Hypokalemia; potassium 2.9 in ED; we will continue to supplement and monitor closely 7. History of hyperlipidemia; Zocor 20 mg daily at bedtime 8. BPH; Flomax 0.4 mg daily DVT prophylaxis; SCDs/anticoagulation CODE STATUS; DO NOT RESUSCITATE
[2023-05-05] MEDS: ATORVASTATIN 10 MG TAB PO SCH (20:10)
[2023-05-05] MEDS: CHOLECALCIFEROL 25 MCG (1000 IU) TABLET PO SCH (20:10)
[2023-05-05] MEDS: NIACIN TR 500 MG CAPLET PO SCH (22:32)
[2023-05-06] MEDS: SODIUM CHLORIDE 0.9% 1,000 ML IV SCH ×3 (06:00→20:53)
--- NOTE | 2023-05-06 07:05 | P.PN ---
Subjective Progress Note Date: 05/06/23 87-year-old male patient with history of hypertension, hyperlipidemia, osteoarthritis, brought to ED by EMS for mental status change and fever; patient is unable to provide any history so all of the history is obtained from the EMS records according to which patient was found to have fever and Mental status change and was brought to ED for further evaluation Patient is being admitted to the hospital for altered mental status, pneumonia, elevated troponin and new onset atrial fibrillation EKG shows atrial fibrillation with right bundle branch block and left anterior fascicular block Chest x-ray shows right perihilar infiltrate consistent with pneumonia Lab data: CBC 11.2, hemoglobin 13.0, hematocrit 40.6, platelet 212, sodium 141, potassium 2.9, BUN 18, creatinine 0.62, magnesium 1.8, AST 24, ALT 15, troponin 0.11, 0.17, 0.13, TSH 1.01 05/06/2023 Patient is seen and evaluated in room at bedside; discussed with nursing staff Vital signs are reviewed and remained stable Patient has been evaluated by cardiology; placed on low-dose beta verna and anticoagulation with L Ruggiero for new onset atrial fibrillation -- Continue with current antibiotics for pneumonia Objective - Vital Signs Vital signs: Vital Signs Temp 98.2 F 05/06/23 00:00 Pulse 60 05/06/23 02:00 Resp 16 05/06/23 02:00 BP 126/68 05/06/23 00:00 Pulse Ox 93 L 05/06/23 00:00 FiO2 Intake & Output 05/05/23 05/05/23 05/06/23 06:59 18:59 06:59 Intake Total 47.81 0 Output Total 850 Balance -802.19 0 Intake: Intake, IV Titration 47.81 Amount Heparin Sod,Pork in 0.45% 47.81 NaCl 25,000 unit In 0.45 % NaCl 1 250ml.bag @ 12 UNITS/KG/HR 8.437 mls/hr IV .Q24H [facility] Rx#: [id number] Oral 0 Output: Urine 850 Straight 850 Other: Voiding Method Urinal Indwelling Catheter Indwelling Catheter Diaper - Exam 87-year-old male in no apparent distress at the time of my examination. Patient is very hard of hearing HEENT: Head is atraumatic, normocephalic. Pupils are equal, round. There is no jugular venous distention. No carotid bruit is heard. CHEST EXAMINATION: Lungs are clear to auscultation. No chest wall tenderness is noted on palpation or with deep breathing. HEART EXAMINATION: Irregular rate and rhythm. S1, S2 heard. No murmurs, gallops or rub. ABDOMEN: Soft, nontender. Bowel sounds are heard. No organomegaly noted. EXTREMITIES: 2+ peripheral pulses with no evidence of peripheral edema and no calf tenderness noted. NEUROLOGIC EXAMINATION: Patient is awake and alert - Labs CBC & Chem 7: 05/05/23 09:47 05/05/23 14:37 Labs: Abnormal Lab Results - Last 24 Hours (Table) 05/05/23 05/05/23 05/05/23 Range/Units 09:47 09:47 09:47 WBC 11.2 H (3.8-10.6) k/uL RBC 3.77 L (4.30-5.90) m/uL MCV 107.8 H (80.0-100.0) fL Neutrophils # 9.8 H (1.3-7.7) k/uL Lymphocytes # 0.8 L (1.0-4.8) k/uL PT 14.7 H (10.0-12.5) sec INR 1.4 H (<1.2) APTT (22.0-30.0) sec Potassium 2.9 L (3.5-5.1) mmol/L Chloride 109 H (98-107) mmol/L Carbon Dioxide 20 L (22-30) mmol/L Creatinine 0.62 L (0.66-1.25) mg/dL Glucose 124 H (74-99) mg/dL Calcium 8.2 L (8.4-10.2) mg/dL 05/05/23 05/05/23 Range/Units 09:47 14:37 WBC (3.8-10.6) k/uL RBC (4.30-5.90) m/uL MCV (80.0-100.0) fL Neutrophils # (1.3-7.7) k/uL Lymphocytes # (1.0-4.8) k/uL PT (10.0-12.5) sec INR (<1.2) APTT 39.1 H (22.0-30.0) sec Potassium 3.4 L (3.5-5.1) mmol/L Chloride (98-107) mmol/L Carbon Dioxide (22-30) mmol/L Creatinine (0.66-1.25) mg/dL Glucose (74-99) mg/dL Calcium (8.4-10.2) mg/dL Microbiology - Last 24 Hours (Table) 05/03/23 22:22 Blood Culture - Preliminary Blood Assessment and Plan Assessment: 1. Elevated troponin -- Patient denies any complaint of chest pain; initial troponin is elevated at 0.11 with slight upward trend of 0.17 - EKG reveals atrial fibrillation with right bundle branch block and left anterior fascicular block -- We will continue to trend troponin and monitor EKG; consult cardiology for further evaluation 2. New onset atrial fibrillation; persistent -- Patient has been placed on beta blockers and placed on anticoagulation -- Cardiology to evaluate and make further recommendations 3. Community-acquired pneumonia; chest x-ray reveals right perihilar infiltrate consistent with pneumonia -- Slightly elevated WBC at 11.2 -- Patient has been placed on IV Rocephin and azithromycin -- We will monitor CBC, CRP and pro-calcitonin periodically 4. Altered mental status likely toxic metabolic encephalopathy related to pneumonia 5. Hypotension; patient has history of hypertension; takes lisinopril 20 mg twice a day which is placed on hold -- Patient has been placed on low-dose beta blockers for new onset atrial f ibrillation -- Monitor blood pressure closely and we will plan to resume antihypertensive therapy if blood pressure trends up 6. Hypokalemia; potassium 2.9 in ED; we will continue to supplement and monitor closely 7. History of hyperlipidemia; Zocor 20 mg daily at bedtime 8. BPH; Flomax 0.4 mg daily DVT prophylaxis; SCDs/anticoagulation CODE STATUS; DO NOT RESUSCITATE
[2023-05-06] MEDS: FUROSEMIDE 20 MG TAB PO SCH (09:24)
[2023-05-06] MEDS: AZITHROMYCIN 500 MG TAB PO SCH (09:24)
[2023-05-06] MEDS: allopurinoL 100 MG TAB PO SCH (09:24)
[2023-05-06] MEDS: TAMSULOSIN 0.4 MG CAP.ER.24H PO SCH (09:24)
[2023-05-06] MEDS: APIXABAN 5 MG TAB PO SCH ×2 (09:24→20:52)
[2023-05-06] MEDS: DORZOLAMIDE-TIMOLOL 2.23%/0.68 10ML BTL RIGHT EYE SCH ×2 (09:24→15:42)
[2023-05-06] MEDS: METOPROLOL TARTRATE 25 MG TAB PO SCH ×2 (09:24→20:52)
[2023-05-06 09:55] LABS: Basophils % (A) 0 %; Eosinophils # (A) 0.2 k/uL (0-0.7); Eosinophils % (A) 1 %; HCT 39.4 % (39.0-53.0); HGB 12.7 gm/dL (13.0-17.5); Lymphocytes % (A) 10 %; MCH 34.6 pg (25.0-35.0); MCHC 32.2 g/dL (31.0-37.0); MCV 107.4 fL (80.0-100.0); Macrocytosis Moderate; Mean Platelet Volume 7.8; Monocytes # (A) 0.3 k/uL (0-1.0); Monocytes % (A) 3 %; Neutrophils # (A) 8.8 k/uL (1.3-7.7); Neutrophils % (A) 84 %; Platelet Count 232 k/uL (150-450); RBC 3.67 m/uL (4.30-5.90); RDW 13.2 % (11.5-15.5); WBC 10.4 k/uL (3.8-10.6)
[2023-05-06 10:13] LABS: African American GFR (CKD) >90 (>60 ml/min/1.73 sqM); Anion Gap 12 mmol/L; Blood Urea Nitrogen 16 mg/dL (9-20); Calcium 8.1 mg/dL (8.4-10.2); Carbon Dioxide 21 mmol/L (22-30); Chloride 108 mmol/L (98-107); Glucose 117 mg/dL (74-99); Non-African American GFR(CKD) 90 (>60 ml/min/1.73 sqM); Potassium 3.2 mmol/L (3.5-5.1); Sodium 141 mmol/L (137-145)
--- NOTE | 2023-05-06 14:04 | P.PN ---
Subjective Progress Note Date: 05/06/23 This is Pedro Jimenez NP, I'm dictating on behalf of Dr. Guerra's H&P and A&P. Patient was interviewed and examined. Patient is a pleasant 87-year-old male who presented to the hospital with mental status changes and fever. Patient was found to have pneumonia, as well as mildly elevated troponins with a flat trend. Patient today reports that he's feeling okay. He is denying chest pain, shortness of breath, and heart palpitations. Patient is noted to still be in atrial fibrillation on telemetry, however his rate is well-controlled with the metoprolol. GENERAL: Well-appearing, well-nourished and in no acute distress. NECK: Supple without JVD or thyromegaly. LUNGS: Breath sounds clear to auscultation bilaterally. Respiration equal and unlabored. No wheezes, rales or rhonchi. HEART: Regular rate and rhythm without murmurs, rubs or gallops. S1 and S2 heard. EXTREMITIES: Normal range of motion, no edema. No clubbing or cyanosis. Peripheral pulses intact and strong. VITALS: Temp 97.6, pulse 71, respirations 18, blood pressure 188/91, O2 saturation 94% on room air TELEMETRY: Atrial fibrillation with controlled ventricular response LABS: White count 10.4, hemoglobin 12.7, platelets 232, sodium 141, potassium 3.2, BUN 16, creatinine 0.61, calcium 8.1 IMPRESSION: 1. New onset atrial fibrillation 2. Elevated troponins, flat, not indicative of ACS 3. Right bundle branch block with left anterior fascicular block 4. Hypokalemia 5. History of AAA 6. Pneumonia PLAN: Continue metoprolol 25 g twice a day. Patient's heart rate is adequately controlled. No further medication changes recommended at this time. Elevated blood pressure is likely secondary to pneumonia. Once pneumonia is better controlled, we'll reevaluate blood pressure and determine if adjustments need to be made to medications. Further recommendations based on patient's clinical course. Objective - Vital Signs Vital signs: Vital Signs Temp 98.1 F 05/06/23 11:55 Pulse 83 05/06/23 11:55 Resp 17 05/06/23 11:55 BP 179/83 05/06/23 11:55 Pulse Ox 95 05/06/23 11:55 FiO2 Intake & Output 05/05/23 05/06/23 05/06/23 18:59 06:59 18:59 Intake Total 0 234 Output Total 300 Balance -300 234 Intake: Oral 0 234 Output: Urine 300 Other: Voiding Method Indwelling Catheter Indwelling Catheter Indwelling Catheter # Bowel Movements 1 - Labs CBC & Chem 7: 05/06/23 09:11 05/06/23 09:11 Labs: Abnormal Lab Results - Last 24 Hours (Table) 05/05/23 05/06/23 05/06/23 Range/Units 14:37 09:11 09:11 RBC 3.67 L (4.30-5.90) m/uL Hgb 12.7 L (13.0-17.5) gm/dL MCV 107.4 H (80.0-100.0) fL Neutrophils # 8.8 H (1.3-7.7) k/uL Potassium 3.4 L 3.2 L (3.5-5.1) mmol/L Chloride 108 H (98-107) mmol/L Carbon Dioxide 21 L (22-30) mmol/L Creatinine 0.61 L (0.66-1.25) mg/dL Glucose 117 H (74-99) mg/dL Calcium 8.1 L (8.4-10.2) mg/dL Microbiology - Last 24 Hours (Table) 05/03/23 22:22 Blood Culture - Preliminary Blood
[2023-05-06] MEDS: ATORVASTATIN 10 MG TAB PO SCH (20:52)
[2023-05-06] MEDS: NIACIN TR 500 MG CAPLET PO SCH (20:52)
[2023-05-06] MEDS: CHOLECALCIFEROL 25 MCG (1000 IU) TABLET PO SCH (20:52)
[2023-05-07] MEDS ORDERED: ZINC OXIDE PASTE (Z-GUARD) 1 APPLIC TOPICAL PRN (02:28)
[2023-05-07 09:27] LABS: Basophils % (A) 0 %; Eosinophils # (A) 0.1 k/uL (0-0.7); Eosinophils % (A) 1 %; HCT 43.1 % (39.0-53.0); HGB 13.9 gm/dL (13.0-17.5); Lymphocytes # (A) 1.9 k/uL (1.0-4.8); Lymphocytes % (A) 18 %; MCH 34.9 pg (25.0-35.0); MCHC 32.2 g/dL (31.0-37.0); MCV 108.4 fL (80.0-100.0); Macrocytosis Moderate; Mean Platelet Volume 8.7; Monocytes # (A) 0.5 k/uL (0-1.0); Monocytes % (A) 5 %; Neutrophils # (A) 7.7 k/uL (1.3-7.7); Neutrophils % (A) 75 %; Platelet Count 253 k/uL (150-450); RBC 3.97 m/uL (4.30-5.90); RDW 13.1 % (11.5-15.5); WBC 10.4 k/uL (3.8-10.6)
[2023-05-07] MEDS: METOPROLOL TARTRATE 25 MG TAB PO SCH ×2 (09:50→21:12)
[2023-05-07] MEDS: APIXABAN 5 MG TAB PO SCH ×2 (09:50→21:12)
[2023-05-07] MEDS: TAMSULOSIN 0.4 MG CAP.ER.24H PO SCH (09:50)
[2023-05-07] MEDS: allopurinoL 100 MG TAB PO SCH (09:50)
[2023-05-07] MEDS: FUROSEMIDE 20 MG TAB PO SCH (09:50)
[2023-05-07] MEDS: DORZOLAMIDE-TIMOLOL 2.23%/0.68 10ML BTL RIGHT EYE SCH ×2 (09:51→17:41)
[2023-05-07 10:09] LABS: African American GFR (CKD) >90 (>60 ml/min/1.73 sqM); Anion Gap 13 mmol/L; Blood Urea Nitrogen 13 mg/dL (9-20); Calcium 8.2 mg/dL (8.4-10.2); Carbon Dioxide 21 mmol/L (22-30); Chloride 106 mmol/L (98-107); Glucose 136 mg/dL (74-99); Non-African American GFR(CKD) >90 (>60 ml/min/1.73 sqM); Potassium 3.2 mmol/L (3.5-5.1); Sodium 140 mmol/L (137-145)
--- NOTE | 2023-05-07 12:30 | P.PN ---
Subjective HISTORY OF PRESENT ILLNESS: The patient is an 87-year-old male who follows in the office with Dr. Qureshi. He was brought to the emergency room for mental status changes and fever. He was subsequently diagnosed with pneumonia and during that workup, troponins were drawn and found to have mildly abnormal with a flat trend. At the time of my exam the patient denied any chest pain or chest pressure. No dyspnea at rest. DIAGNOSTICS: EKG shows atrial fibrillation with right bundle branch block and left anterior fascicular block Chest x-ray shows right perihilar infiltrate consistent with pneumonia Lab data: CBC 11.2, hemoglobin 13.0, hematocrit 40.6, platelet 212, sodium 141, potassium 2.9, BUN 18, creatinine 0.62, magnesium 1.8, AST 24, ALT 15, troponin 0.11, 0.17, 0.13, TSH 1.01 05/06/2023 Patient is a pleasant 87-year-old male who presented to the hospital with mental status changes and fever. Patient was found to have pneumonia, as well as mildly elevated troponins with a flat trend. Patient today reports that he's feeling okay. He is denying chest pain, shortness of breath, and heart palpitations. Patient is noted to still be in atrial fibrillation on telemetry, however his rate is well-controlled with the metoprolol. 05/07/2023 Patient examined this morning at the bedside. Patient currently denies chest pain or pressure. He denies shortness of breath. He denies palpitations or lightheadedness. Telemetry monitoring reveals atrial fibrillation with a heart rate in the 80s. He has been initiated on Eliquis. PHYSICAL EXAM: VITAL SIGNS: Reviewed. GENERAL: Well-developed in no acute distress. NECK: Supple. No JVD or thyromegaly LUNGS: Respirations even and unlabored. Lungs essentially clear to auscultation bilaterally. HEART: Irregular rate and rhythm. S1 and S2 heard. EXTREMITIES: Normal range of motion. No clubbing or cyanosis. Peripheral pulses intact. No lower extremity edema ASSESSMENT: Pneumonia Urinary retention requiring indwelling urinary catheter New onset atrial fibrillation, currently rate controlled Right bundle-branch block with left anterior fascicular block Elevated troponins, flat, not indicative of acute coronary syndrome Hypokalemia History of AAA PLAN: Continue telemetry monitoring. Patient is currently rate controlled at the time of examination Continue current cardiac medications Patient is currently stable from a cardiac perspective Further recommendations pending patient's course Nurse practitioner note has been reviewed by physician. Signing provider agrees with the documented findings, assessment, and plan of care. Objective - Vital Signs Vital signs: Vital Signs Temp 98.1 F 05/07/23 08:00 Pulse 69 05/07/23 08:00 Resp 18 05/07/23 08:00 BP 192/91 05/07/23 08:00 Pulse Ox 92 L 05/07/23 08:00 FiO2 Intake & Output 05/06/23 05/07/23 05/07/23 18:59 06:59 18:59 Intake Total 234 0 360 Output Total 850 1000 Balance -616 -1000 360 Intake: Oral 234 0 360 Output: Urine 850 1000 Other: Voiding Method Indwelling Catheter Indwelling Catheter Indwelling Catheter # Bowel Movements 1 1 - Labs CBC & Chem 7: 05/07/23 07:47 05/07/23 07:47 Labs: Abnormal Lab Results - Last 24 Hours (Table) 05/07/23 05/07/23 Range/Units 07:47 07:47 RBC 3.97 L (4.30-5.90) m/uL MCV 108.4 H (80.0-100.0) fL Potassium 3.2 L (3.5-5.1) mmol/L Carbon Dioxide 21 L (22-30) mmol/L Creatinine 0.55 L (0.66-1.25) mg/dL Glucose 136 H (74-99) mg/dL Calcium 8.2 L (8.4-10.2) mg/dL Microbiology - Last 24 Hours (Table) 05/03/23 22:22 Blood Culture - Preliminary Blood
--- NOTE | 2023-05-07 12:44 | P.GSCN ---
History of Present Illness Consult date: 05/07/23 Reason for Consult: Urinary retention History of present illness: This is an 87 yo male admitted to the hospital with pneumonia and AMS. Urology is consulted for urinary retention. He had a martinez catheter placed for elevated PVR of 850 mL. He indicated he was able to void, but unable to completely empty his bladder. denies previous history of urinary retention. He indicates he is able to void with fair stream. But does complain of frequency and nocturia at baseline. No previous history of urinary retention, recurrent UTIs, or kidney stones Review of Systems - Constitutional Denies fever, Denies weight loss - EENT Ears, nose, mouth and throat: Denies dysphagia - Cardiovascular Denies chest pain, Denies shortness of breath - Respiratory Denies cough, Denies 7 - Gastrointestinal Reports as per HPI - Genitourinary Denies dysuria, Denies flank pain, Denies hematuria - Neurological Denies headaches, Denies syncope Past Medical History Past Medical History: Hyperlipidemia, Hypertension, Osteoarthritis (OA), Prostate Disorder Additional Past Medical History / Comment(s): 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 glaucoma sx Past Anesthesia/Blood Transfusion Reactions: No Reported Reaction Past Psychological History: No Psychological Hx Reported Smoking Status: Never smoker Past Alcohol Use History: Rare Past Drug Use History: None Reported - Past Family History Father Additional Family Medical History / Comment(s): from a "slow heart" Mother Family Medical History: CVA/TIA Medications and Allergies Home Medications Medication Instructions Recorded Confirmed Type [place]-3 Fatty Acids/Fish Oil [Fish 1 cap PO DAILY@79901/13/18 05/03/23 History Oil 1,000 mg Softgel] Simvastatin [Zocor] 20 mg PO HS@199901/13/18 05/03/23 History Tamsulosin HCl [Flomax] 0.4 mg PO HS@79901/13/18 05/03/23 History lisinopriL [Prinivil] 20 mg PO BID@08,199901/13/18 05/03/23 History Calcium Carbonate [Calcium] 600 mg PO DAILY@0803/03/18 05/03/23 History Lidocaine 5% Patch [Lidoderm 5% 1 patch TOPICAL DAILY #10 patch 04/26/23 05/03/23 Rx Patch] Cholecalciferol [Vitamin D3 (25 50 mcg PO HS@199905/03/23 05/03/23 History Mcg = 1000 Iu)] Dorzolamide/Timolol/Pf 1 drop RIGHT EYE BID@0800,1700 05/03/23 05/03/23 History [Dorzolamide 2%-Timolol 0.5%] Furosemide [Lasix] 20 mg PO DAILY@0800 05/03/23 05/03/23 History Ibuprofen [Motrin] 800 mg PO QID@02,08,14,20 05/03/23 05/03/23 History L.acidoph,Paracasei, B.lactis 1 cap PO HS@199905/03/23 05/03/23 History [Probiotic] Melatonin 20 mg PO HS@199905/03/23 05/03/23 History Niacin [Niavasc] 1,000 mg PO HS@199905/03/23 05/03/23 History Vitamin A 2,400 mcg PO HS@199905/03/23 05/03/23 History Zolpidem [Ambien] 5 mg PO HS@199905/03/23 05/03/23 History allopurinoL [Zyloprim] 100 mg PO DAILY@79905/03/23 05/03/23 History Allergies Allergy/AdvReac Type Severity Reaction Status Date / Time No Known Allergies Allergy Verified 05/03/23 23:27 Surgical - Exam Vital Signs Temp Pulse Resp BP Pulse Ox 101.6 F H 89 18 135/73 95 05/03/23 20:53 05/03/23 20:53 05/03/23 20:53 05/03/23 20:53 05/03/23 20:53 - General no distress, no pain - Eyes normal ocular movement, no pale - ENT normal nares, normal mucosa - Respiratory normal expansion, normal respiratory effort - Abdomen Abdomen: soft, non tender, no distended - Genitourinary normal penis with no external lesions, testicles present, testicles non-tender Results - Labs 05/07/23 07:47 05/07/23 07:47 Abnormal Lab Results - Last 24 Hours (Table) 05/07/23 05/07/23 Range/Units 07:47 07:47 RBC 3.97 L (4.30-5.90) m/uL MCV 108.4 H (80.0-100.0) fL Potassium 3.2 L (3.5-5.1) mmol/L Carbon Dioxide 21 L (22-30) mmol/L Creatinine 0.55 L (0.66-1.25) mg/dL Glucose 136 H (74-99) mg/dL Calcium 8.2 L (8.4-10.2) mg/dL Microbiology - Last 24 Hours (Table) 05/03/23 22:22 Blood Culture - Preliminary Blood Diabetes panel 05/07/23 Range/Units 07:47 Sodium 140 (137-145) mmol/L Potassium 3.2 L (3.5-5.1) mmol/L Chloride 106 (98-107) mmol/L Carbon Dioxide 21 L (22-30) mmol/L BUN 13 (9-20) mg/dL Creatinine 0.55 L (0.66-1.25) mg/dL Glucose 136 H (74-99) mg/dL Calcium 8.2 L (8.4-10.2) mg/dL Calcium panel 05/07/23 Range/Units 07:47 Calcium 8.2 L (8.4-10.2) mg/dL Pituitary panel 05/07/23 Range/Units 07:47 Sodium 140 (137-145) mmol/L Potassium 3.2 L (3.5-5.1) mmol/L Chloride 106 (98-107) mmol/L Carbon Dioxide 21 L (22-30) mmol/L BUN 13 (9-20) mg/dL Creatinine 0.55 L (0.66-1.25) mg/dL Glucose 136 H (74-99) mg/dL Calcium 8.2 L (8.4-10.2) mg/dL Adrenal panel 05/07/23 Range/Units 07:47 Sodium 140 (137-145) mmol/L Potassium 3.2 L (3.5-5.1) mmol/L Chloride 106 (98-107) mmol/L Carbon Dioxide 21 L (22-30) mmol/L BUN 13 (9-20) mg/dL Creatinine 0.55 L (0.66-1.25) mg/dL Glucose 136 H (74-99) mg/dL Calcium 8.2 L (8.4-10.2) mg/dL Assessment and Plan Assessment: 87-year-old male with urinary retention with postvoid residual of 850 mL. Urinary retention most likely secondary to his underlying BPH, worsened by his recent hospitalization. most likely given his age unlikely that he is emptying his bladder completely at baseline -martinez can be removed prior to discharge, please check patient residual after he voids, if less than 500 mL no need to reinsert Martinez catheter -Continue Flomax
[2023-05-07] MEDS: ACETAMINOPHEN TAB 325 MG TAB PO PRN ×2 (13:08→21:20)
--- NOTE | 2023-05-07 15:13 | XR ---
EXAMINATION TYPE: XR chest 1V DATE OF EXAM: 05/07/2023 COMPARISON: 05/03/2023 HISTORY: 87-year-old male pneumonia, shortness of breath TECHNIQUE: Single frontal view of the chest is obtained. FINDINGS: Heart normal size. Atherosclerotic aortic arch calcifications. Hyperinflation. Diffuse int erstitial density persists. Worsening focal air space opacity right midlung. IMPRESSION: COPD with similar scattered interstitial densities. However, there is new developing air space disease at the right midlung suggestive of pneumonia.
--- NOTE | 2023-05-07 16:26 | P.PN ---
Subjective 87-year-old male patient with history of hypertension, hyperlipidemia, osteoarthritis, brought to ED by EMS for mental status change and fever; patient is unable to provide any history so all of the history is obtained from the EMS records according to which patient was found to have fever and Mental status change and was brought to ED for further evaluation Patient is being admitted to the hospital for altered mental status, pneumonia, elevated troponin and new onset atrial fibrillation EKG shows atrial fibrillation with right bundle branch block and left anterior fascicular block Chest x-ray shows right perihilar infiltrate consistent with pneumonia Lab data: CBC 11.2, hemoglobin 13.0, hematocrit 40.6, platelet 212, sodium 141, potassium 2.9, BUN 18, creatinine 0.62, magnesium 1.8, AST 24, ALT 15, troponin 0.11, 0.17, 0.13, TSH 1.01 05/06/2023 Patient is seen and evaluated in room at bedside; discussed with nursing staff Vital signs are reviewed and remained stable Patient has been evaluated by cardiology; placed on low-dose beta verna and anticoagulation with L Ruggiero for new onset atrial fibrillation -- Continue with current antibiotics for pneumonia 05/07/2023 This is a pleasant 87 years old male who presents initially with pneumonia, he was transferred for her to the hospital because of confusion and found to have pneumonia and the new onset atrial fibrillation, currently rate controlled on Eliquis. Screw Machine Set Up Operator [employer] evaluated the patient for high troponin which is thought secondary to his infection and A. fib. Also has a George catheter for urinary retention evaluated by urologist. Patient still looks tired and PT/OT recommended close monitoring on discharge and possible consistently less than with home health care as patient is high- risk for falling. Patient himself looks somewhat weak alert awake oriented. Some delay in the responses. Looks with mild delirium area Vitals stable. WBC back to normal at 10.4. Patient currently on Eliquis 5 mg, was ceftriaxone, Zithromax, normal saline was discontinue it today. Patient also on oral Lasix 20 mg daily. Repeat chest x-ray in the morning Objective - Vital Signs Vital signs: Vital Signs Temp 98.1 F 05/07/23 08:00 Pulse 59 L 05/07/23 12:00 Resp 18 05/07/23 08:00 BP 163/81 05/07/23 12:00 Pulse Ox 96 05/07/23 12:00 FiO2 Intake & Output 05/06/23 05/07/23 05/07/23 18:59 06:59 18:59 Intake Total 234 0 360 Output Total 850 1000 Balance -616 -1000 360 Intake: Oral 234 0 360 Output: Urine 850 1000 Other: Voiding Method Indwelling Catheter Indwelling Catheter Indwelling Catheter # Bowel Movements 1 1 - Exam -GENERAL: The patient is alert and oriented x3, not in any acute distress. Well developed, well nourished. Generally weak HEENT: Pupils are round and equally reacting to light. EOMI. No scleral icterus. No conjunctival pallor. Normocephalic, atraumatic. No pharyngeal erythema. No thyromegaly. CARDIOVASCULAR: S1 and S2 present. No murmurs, rubs, or gallops. PULMONARY: Chest is clear to auscultation, no wheezing , no crackles. ABDOMEN: Soft, nontender, nondistended, normoactive bowel sounds. No palpable organomegaly. MUSCULOSKELETAL: No joint swelling or deformity. EXTREMITIES: No cyanosis, clubbing, or pedal edema. NEUROLOGICAL: Gross neurological examination did not reveal any focal deficits. SKIN: No rashes. no petechiae. - Labs CBC & Chem 7: 05/07/23 07:47 05/07/23 07:47 Labs: Abnormal Lab Results - Last 24 Hours (Table) 05/07/23 05/07/23 Range/Units 07:47 07:47 RBC 3.97 L (4.30-5.90) m/uL MCV 108.4 H (80.0-100.0) fL Potassium 3.2 L (3.5-5.1) mmol/L Carbon Dioxide 21 L (22-30) mmol/L Creatinine 0.55 L (0.66-1.25) mg/dL Glucose 136 H (74-99) mg/dL Calcium 8.2 L (8.4-10.2) mg/dL Microbiology - Last 24 Hours (Table) 05/03/23 22:22 Blood Culture - Preliminary Blood Assessment and Plan Assessment: Community-acquired pneumonia Paroxysmal atrial fibrillation, rate controlled Elevated troponin secondary to above Acute urinary retention Metabolic encephalopathy secondary to above Plan: Continue with antibiotics ceftriaxone and Zithromax Continue with the liquids and metoprolol Discontinue IV fluids and encourage eating and drinking. Continue with oral Lasix 20 mg daily. Neurology on the case. Cardiology found the patient is stable DVT prophylaxis Eliquis GI prophylaxis Pepcid Prognosis is guarded
--- NOTE | 2023-05-07 17:03 | CA ---
Transthoracic Echo Report Name: Zach Welch Age: 87 Gender: M : 1935 Exam Date: 05/07/2023 12:51 Exam Location: [facility] Ht (in): 72 Wt (lb): 155 Ordering Physician: Ricarda Navarro Attending/Referring Phys: [id number], Melanie Hemp Fiber Taker Off Bc Watt Procedure CPT: Indications: LV function Cardiac Hx: Technical Quality: Technically difficult study Contrast 1: Total Dose (mL): Contrast 2: Total Dose (mL): MEASUREMENTS (Male / Female) Normal Values 2D ECHO LV Diastolic Diameter PLAX 4.6 cm 4.2 - 5.9 / 3.9 - 5.3 cm LV Systolic Diameter PLAX 2.8 cm IVS Diastolic Thickness 1.1 cm 0.6 - 1.0 / 0.6 - 0.9 cm LVPW Diastolic Thickness 1.1 cm 0.6 - 1.0 / 0.6 - 0.9 cm LV Relative Wall Thickness 0.5 RV Internal Dim ED PLAX 2.7 cm LVOT Diameter 2.0 cm Aortic Root Diameter 3.2 cm LA Systolic Diameter LX 2.9 cm 3.0 - 4.0 / 2.7 - 3.8 cm LV Diastolic Volume MOD 4C 57.4 cm??? LV Systolic Volume MOD 4C 17.9 cm??? LV Ejection Fraction MOD 4C 68.8 % LV Cardiac Index MOD 4C 1613.5 cm???/min???m??? LV Diastolic Length 4C 6.4 cm LV Systolic Length 4C 6.0 cm DOPPLER AV Peak Velocity 162.2 cm/s AV Peak Gradient 10.5 mmHg LVOT Peak Velocity 101.1 cm/s LVOT Peak Gradient 4.1 mmHg LVOT Velocity Time Integral 20.4 cm LVOT Stroke Volume 65.8 cm??? LVOT Stroke Volume Index 34.4 ml/m??? LVOT Cardiac Index 2690.2 cm???/min???m??? AV Area Cont Eq pk 2.0 cm??? MV Peak Velocity 127.3 cm/s MV Peak Gradient 6.5 mmHg MV Mean Velocity 59.0 cm/s MV Mean Gradient 1.7 mmHg MV Velocity Time Integral 42.7 cm MR Peak Velocity 327.2 cm/s MR Peak Gradient 42.8 mmHg Mitral E Point Velocity 92.4 cm/s Mitral A Point Velocity 123.6 cm/s Mitral E to A Ratio 0.7 MV Deceleration Time 233.4 ms TR Peak Velocity 255.9 cm/s TR Peak Gradient 26.2 mmHg Right Ventricular Systolic Press 31.2 mmHg FINDINGS Left Ventricle Normal LV size. Mild concentric LVH. Posterior wall hypokenesis. Left ventricular ejection fraction is estimated at -45 %. Right Ventricle Normal right ventricular size and function. RVSP= 31mmHg. Right Atrium Mild right atrial dilatation. Left Atrium Mild to moderate left atrial dilatation. Mitral Valve Structurally normal mitral valve. Trace MR. Aortic Valve Trileaflet aortic valve. Mild AV calcification. No aortic regurgitation. No aortic stenosis. Tricuspid Valve Tricuspid valve not well visualized. Mild TR. Pulmonic Valve Pulmonic valve not well visualized. No pulmonic regurgitation. Pericardium Aorta CONCLUSIONS Mild LV systolic dysfunction with an ejection fraction of 45% aortic sclerosis without significant stenosis Previewed by: Dr. Omkar Gordon MD (Electronically Signed) Final Date: 07 May 2023 17:02
[2023-05-07] MEDS: SODIUM CHLORIDE 0.9% 1,000 ML IV SCH (17:41)
[2023-05-07] MEDS: CHOLECALCIFEROL 25 MCG (1000 IU) TABLET PO SCH (21:12)
[2023-05-07] MEDS: FAMOTIDINE 20 MG TAB PO SCH (21:12)
[2023-05-07] MEDS: ATORVASTATIN 10 MG TAB PO SCH (21:13)
[2023-05-08] MEDS: ACETAMINOPHEN TAB 325 MG TAB PO PRN ×3 (04:59→21:54)
--- NOTE | 2023-05-08 08:44 | XR ---
EXAMINATION TYPE: XR chest 1V DATE OF EXAM: 05/08/2023 COMPARISON: 05/07/2023 HISTORY: 79 year-old male shortness of breath TECHNIQUE: Single frontal view of the chest is obtained. FINDINGS: Heart normal size. The calcifications. Patchy bilateral interstitial opacities persist. Fo mark airspace disease right midlung persists. Slight worsening opacity at the left base and suspected trace effusion. Hyperinflation. IMPRESSION: 1. COPD with ongoing multifocal interstitial infiltrates. 2. Ongoing focal airspace disease right mid lung and worsening airspace disease of the left base. 3. Trace left effusion now present.
[2023-05-08] MEDS: TAMSULOSIN 0.4 MG CAP.ER.24H PO SCH (10:00)
[2023-05-08] MEDS: METOPROLOL TARTRATE 25 MG TAB PO SCH ×2 (10:00→21:40)
[2023-05-08] MEDS: FUROSEMIDE 20 MG TAB PO SCH (10:00)
[2023-05-08] MEDS: APIXABAN 5 MG TAB PO SCH ×2 (10:00→21:40)
[2023-05-08] MEDS: lisinopriL 20 MG TAB PO SCH ×2 (10:00→21:40)
[2023-05-08] MEDS: allopurinoL 100 MG TAB PO SCH (10:00)
[2023-05-08] MEDS: DORZOLAMIDE-TIMOLOL 2.23%/0.68 10ML BTL RIGHT EYE SCH ×2 (10:01→17:36)
--- NOTE | 2023-05-08 12:03 | P.PN ---
Subjective 87-year-old male patient with history of hypertension, hyperlipidemia, osteoarthritis, brought to ED by EMS for mental status change and fever; patient is unable to provide any history so all of the history is obtained from the EMS records according to which patient was found to have fever and Mental status change and was brought to ED for further evaluation Patient is being admitted to the hospital for altered mental status, pneumonia, elevated troponin and new onset atrial fibrillation EKG shows atrial fibrillation with right bundle branch block and left anterior fascicular block Chest x-ray shows right perihilar infiltrate consistent with pneumonia Lab data: CBC 11.2, hemoglobin 13.0, hematocrit 40.6, platelet 212, sodium 141, potassium 2.9, BUN 18, creatinine 0.62, magnesium 1.8, AST 24, ALT 15, troponin 0.11, 0.17, 0.13, TSH 1.01 05/06/2023 Patient is seen and evaluated in room at bedside; discussed with nursing staff Vital signs are reviewed and remained stable Patient has been evaluated by cardiology; placed on low-dose beta verna and anticoagulation with L Ruggiero for new onset atrial fibrillation -- Continue with current antibiotics for pneumonia 05/07/2023 This is a pleasant 87 years old male who presents initially with pneumonia, he was transferred for her to the hospital because of confusion and found to have pneumonia and the new onset atrial fibrillation, currently rate controlled on Eliquis. Reel Winder evaluated the patient for high troponin which is thought secondary to his infection and A. fib. Also has a George catheter for urinary retention evaluated by urologist. Patient still looks tired and PT/OT recommended close monitoring on discharge and possible consistently less than with home health care as patient is high- risk for falling. Patient himself looks somewhat weak alert awake oriented. Some delay in the responses. Looks with mild delirium area Vitals stable. WBC back to normal at 10.4. Patient currently on Eliquis 5 mg, was ceftriaxone, Zithromax, normal saline was discontinue it today. Patient also on oral Lasix 20 mg daily. Repeat chest x-ray in the morning 05/08/2023 He still mildly confused, he knows in the hospital but he thinks he is in my [facility] and he thinks is 1993 but heis May 03. He knows name of the president Normal respiratory symptoms however repeat chest x-ray showing new pneumonia developing in the right midlung We changed his antibiotics from subtraction to Zosyn. Protonix calcitonin 0.09. Discontinue IV fluids Check bladder scan and if he is attempting more than 500 mL then we replaced it again. urologist already evaluated him. On the Flomax Patient may be downgraded to general medical floor Cardiology see the patient for A. fib with rate controlled currently Review of systems CONSTITUTIONAL: No fever, no malaise, no fatigue. HEENT: No recent visual problems or hearing problems. Denied any sore throat. CARDIOVASCULAR: No orthopnea, PND, no palpitations, no syncope. ain. Normoactive bowel sounds. NEUROLOGICAL: No headaches, no weakness, no numbness. HEMATOLOGICAL: Denies any bleeding or petechiae. GENITOURINARY: Denies any burning micturition, frequency, or urgency. Active Medications Generic Name Dose Route Start Last Admin Trade Name Freq PRN Reason Stop Dose Admin Acetaminophen 325 mg 05/07/23 12:40 05/08/23 04:59 Acetaminophen Tab 325 Mg Tab PO 325 mg Q6HR PRN Administration Fever and/ or Pain Albuterol/Ipratropium 3 ml 05/04/23 01:34 Ipratropium-Albuterol 3 Ml Neb INHALATION RT-QID PRN Dyspnea Allopurinol 100 mg 05/05/23 08:00 05/08/23 10:00 Allopurinol 100 Mg Tab PO 100 mg DAILY@0800 JUSTYNA Administration Apixaban 5 mg 05/05/23 09:00 05/08/23 10:00 Apixaban 5 Mg Tab PO 5 mg BID JUSTYNA Administration Protocol Atorvastatin Calcium 10 mg 05/04/23 20:00 05/07/23 21:13 Atorvastatin 10 Mg Tab PO 10 mg HS@1999 JUSTYNA Administration Cholecalciferol 50 mcg 05/04/23 20:00 05/07/23 21:12 Cholecalciferol 25 Mcg (1000 Iu) Tablet PO 50 mcg HS@1999 JUSTYNA Administration Dorzolamide/Timolol 1 drops 05/04/23 17:00 05/08/23 10:01 Dorzolamide-Timolol 2.23%/0.68 10ml Btl RIGHT EYE 1 drops BID@0800,1700 JUSTYNA Administration Famotidine 20 mg 05/07/23 21:00 05/07/23 21:12 Famotidine 20 Mg Tab PO 20 mg HS JUSTYNA Administration Furosemide 20 mg 05/05/23 08:00 05/08/23 10:00 Furosemide 20 Mg Tab PO 20 mg DAILY@0800 [facility] Administration Piperacillin Sod/Tazobactam 100 mls @ 25 mls/hr 05/08/23 12:00 Sod 3.375 gm/ Sodium Chloride IVPB Q8H [facility] Protocol Lisinopril 20 mg 05/08/23 08:00 05/08/23 10:00 Lisinopril 20 Mg Tab PO 20 mg BID@799,1999 [facility] Administration Metoprolol Tartrate 25 mg 05/05/23 09:00 05/08/23 10:00 Metoprolol Tartrate 25 Mg Tab PO 25 mg BID JUSTYNA Administration Miscellaneous Information 1 each 05/04/23 01:34 Pneumonia Protocol Utilized 1 Each Misc PO ONCE PRN Per Protocol Miscellaneous Information 1 each 05/05/23 11:18 Potassium Replacement Protocol 1 Each Misc MISCELLANE DAILY PRN Per Protocol Protocol Niacin 1,000 mg 05/04/23 20:00 05/06/23 20:52 Niacin Tr 500 Mg Caplet PO 1,000 mg HS@2000 [facility] Administration Petrolatum 1 applic 05/07/23 02:28 05/07/23 03:19 Zinc Oxide Paste (Z-Guard) 1 Applic TOPICAL 1 applic Q2HR PRN Administration Wound Healing Protocol Tamsulosin HCl 0.4 mg 05/05/23 08:00 05/08/23 10:00 Tamsulosin 0.4 Mg Cap.Er.24h PO 0.4 mg HS@0800 JUSTYNA Administration Objective - Vital Signs Vital signs: Vital Signs Temp 98 F 05/08/23 08:20 Pulse 60 05/08/23 08:20 Resp 20 05/08/23 08:20 BP 146/88 05/08/23 08:20 Pulse Ox 95 05/08/23 09:14 FiO2 Intake & Output 05/07/23 05/08/23 05/08/23 18:59 06:59 18:59 Intake Total 360 10 Output Total 1800 450 50 Balance -1440 -440 -50 Intake: IV 10 Invasive Line 2 10 Oral 360 0 Output: Urine 1800 450 50 Uretheral (George) 450 Other: Voiding Method Indwelling Catheter Indwelling Catheter # Voids 1 # Bowel Movements 1 1 - Exam --GENERAL: The patient is alert and oriented x1-2, not in any acute distress. Well developed, well nourished. Generally weak HEENT: Pupils are round and equally reacting to light. EOMI. No scleral icterus. No conjunctival pallor. Normocephalic, atraumatic. No pharyngeal erythema. No thyromegaly. CARDIOVASCULAR: S1 and S2 present. No murmurs, rubs, or gallops. PULMONARY: Chest is clear to auscultation, no wheezing , no crackles. ABDOMEN: Soft, nontender, nondistended, normoactive bowel sounds. No palpable organomegaly. MUSCULOSKELETAL: No joint swelling or deformity. EXTREMITIES: No cyanosis, clubbing, or pedal edema. NEUROLOGICAL: Gross neurological examination did not reveal any focal deficits. SKIN: No rashes. no petechiae. - Labs CBC & Chem 7: 05/07/23 07:47 05/07/23 07:47 Assessment and Plan Assessment: Community-acquired pneumonia, gram-negative microorganism is suspected with worsening pneumonia Paroxysmal atrial fibrillation, rate controlled Elevated troponin secondary to above Acute urinary retention Metabolic encephalopathy secondary to above Plan: [facility] Continue with the leliquis and metoprolol Discontinue IV fluids and encourage eating and drinking. Continue with oral Lasix 20 mg daily. Neurology on the case. Cardiology found the patient is stable DVT prophylaxis Eliquis GI prophylaxis Pepcid Prognosis is guarded Patient can be downgraded to general medical floor
[2023-05-08] MEDS: PIPERACILLIN-TAZOBACTAM 3.375 GM in SODIUM CHLORIDE 0.9% 100 ML IVPB SCH ×2 (12:33→21:41)
--- NOTE | 2023-05-08 12:53 | P.PN ---
Subjective HISTORY OF PRESENT ILLNESS: The patient is an 87-year-old male who follows in the office with Dr. Qureshi. He was brought to the emergency room for mental status changes and fever. He was subsequently diagnosed with pneumonia and during that workup, troponins were drawn and found to have mildly abnormal with a flat trend. At the time of my exam the patient denied any chest pain or chest pressure. No dyspnea at rest. DIAGNOSTICS: EKG shows atrial fibrillation with right bundle branch block and left anterior fascicular block Chest x-ray shows right perihilar infiltrate consistent with pneumonia Lab data: CBC 11.2, hemoglobin 13.0, hematocrit 40.6, platelet 212, sodium 141, potassium 2.9, BUN 18, creatinine 0.62, magnesium 1.8, AST 24, ALT 15, troponin 0.11, 0.17, 0.13, TSH 1.01 05/06/2023 Patient is a pleasant 87-year-old male who presented to the hospital with mental status changes and fever. Patient was found to have pneumonia, as well as mildly elevated troponins with a flat trend. Patient today reports that he's feeling okay. He is denying chest pain, shortness of breath, and heart palpitations. Patient is noted to still be in atrial fibrillation on telemetry, however his rate is well-controlled with the metoprolol. 05/07/2023 Patient examined this morning at the bedside. Patient currently denies chest pain or pressure. He denies shortness of breath. He denies palpitations or lightheadedness. Telemetry monitoring reveals atrial fibrillation with a heart rate in the 80s. He has been initiated on Eliquis. 05/08/2023 Patient examined this morning. He is sitting up in the chair. Patient denies chest pain or pressure. He denies shortness of breath. Telemetry reveals atrial fibrillation with controlled ventricular rate. The patient has been hypertensive with a blood pressure near 200 overnight. He is prescribed lisinopril on an outpatient basis which has not yet been resumed. PHYSICAL EXAM: VITAL SIGNS: Reviewed. GENERAL: Well-developed in no acute distress. NECK: Supple. No JVD or thyromegaly LUNGS: Respirations even and unlabored. Lungs essentially clear to auscultation bilaterally. HEART: Irregular rate and rhythm. S1 and S2 heard. EXTREMITIES: Normal range of motion. No clubbing or cyanosis. Peripheral pulses intact. No lower extremity edema ASSESSMENT: Pneumonia Urinary retention requiring indwelling urinary catheter New onset atrial fibrillation, currently rate controlled Right bundle-branch block with left anterior fascicular block Elevated troponins, flat, not indicative of acute coronary syndrome Hypokalemia History of AAA Hypertension, uncontrolled PLAN: Continue telemetry monitoring. Patient is currently rate controlled at the time of examination Continue current cardiac medications Resume home dose of lisinopril 20 mg twice a day. Continue to monitor blood pressure Further recommendations pending patient's course Nurse practitioner note has been reviewed by physician. Signing provider agrees with the documented findings, assessment, and plan of care. Objective - Vital Signs Vital signs: Vital Signs Temp 97.9 F 05/08/23 12:00 Pulse 63 05/08/23 12:00 Resp 24 05/08/23 12:00 BP 187/85 05/08/23 12:00 Pulse Ox 93 L 05/08/23 12:00 FiO2 Intake & Output 05/07/23 05/08/23 05/08/23 18:59 06:59 18:59 Intake Total 360 10 Output Total 1800 450 50 Balance -1440 -440 -50 Intake: IV 10 Invasive Line 2 10 Oral 360 0 Output: Urine 1800 450 50 Uretheral (George) 450 Other: Voiding Method Indwelling Catheter Indwelling Catheter # Voids 1 # Bowel Movements 1 1 - Labs CBC & Chem 7: 05/07/23 07:47 05/07/23 07:47
[2023-05-08] MEDS: ATORVASTATIN 10 MG TAB PO SCH (21:40)
[2023-05-08] MEDS: FAMOTIDINE 20 MG TAB PO SCH (21:40)
[2023-05-08] MEDS: CHOLECALCIFEROL 25 MCG (1000 IU) TABLET PO SCH (21:40)
[2023-05-08] MEDS: NIACIN TR 500 MG CAPLET PO SCH (21:51)
--- NOTE | 2023-05-08 22:44 | P.CONS ---
History of Present Illness - Reason for Consult Consult date: 05/08/23 - History of Present Illness Patient is a 87-year-old male with a past medical history significant for hypertension hyperlipidemia osteoarthritis history of prostate disorder presented to the hospital about 5 days ago for evaluation of mental status and the patient was found to have a fever patient on presentation to the hospital did have a temperature of 101.6 F patient was not tachycardic hypotensive mildly hypoxic but no need for supplemental oxygen, patient did have a white count of 12.1 on admission and subsequent normalized creatinine 0.6 to urine has been negative influenza RSV and COVID testing was negative patient did have a chest x-ray on admission right perihilar infiltrate correlate for pneumonia repeat chest x-ray completed this morning showing ongoing focal airspace disease right midlung worsening airspace disease at the left base patient antibiotic were adjusted to Zosyn from ceftriaxone infectious disease was consulted for further management of antibiotic therapy patient is very hard of hearing he is currently breathing comfortably and specifically denies any chest pain he did govea ve a cough but not bringing up any sputum no nausea no vomiting or diarrhea has been reported by the nursing staff Past Medical History Past Medical History: Hyperlipidemia, Hypertension, Osteoarthritis (OA), Prostate Disorder Additional Past Medical History / Comment(s): 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 glaucoma sx Past Anesthesia/Blood Transfusion Reactions: No Reported Reaction Past Psychological History: No Psychological Hx Reported Smoking Status: Never smoker Past Alcohol Use History: Rare Past Drug Use History: None Reported - Past Family History Father Additional Family Medical History / Comment(s): from a "slow heart" Mother Family Medical History: CVA/TIA Medications and Allergies Home Medications Medication Instructions Recorded Confirmed Type [place]-3 Fatty Acids/Fish Oil [Fish 1 cap PO DAILY@79901/13/18 05/03/23 History Oil 1,000 mg Softgel] Simvastatin [Zocor] 20 mg PO HS@199901/13/18 05/03/23 History Tamsulosin HCl [Flomax] 0.4 mg PO HS@79901/13/18 05/03/23 History lisinopriL [Prinivil] 20 mg PO BID@0800,199901/13/18 05/03/23 History Calcium Carbonate [Calcium] 600 mg PO DAILY@79903/03/18 05/03/23 History Lidocaine 5% Patch [Lidoderm 5% 1 patch TOPICAL DAILY #10 patch 04/26/23 05/03/23 Rx Patch] Cholecalciferol [Vitamin D3 (25 50 mcg PO HS@199905/03/23 05/03/23 History Mcg = 1000 Iu)] Dorzolamide/Timolol/Pf 1 drop RIGHT EYE BID@0800,1700 05/03/23 05/03/23 History [Dorzolamide 2%-Timolol 0.5%] Furosemide [Lasix] 20 mg PO DAILY@79905/03/23 05/03/23 History Ibuprofen [Motrin] 800 mg PO QID@02,08,14,20 05/03/23 05/03/23 History L.acidoph,Paracasei, B.lactis 1 cap PO HS@199905/03/23 05/03/23 History [Probiotic] Melatonin 20 mg PO HS@199905/03/23 05/03/23 History Niacin [Niavasc] 1,000 mg PO HS@199905/03/23 05/03/23 History Vitamin A 2,400 mcg PO HS@199905/03/23 05/03/23 History Zolpidem [Ambien] 5 mg PO HS@199905/03/23 05/03/23 History allopurinoL [Zyloprim] 100 mg PO DAILY@0805/03/23 05/03/23 History Allergies Allergy/AdvReac Type Severity Reaction Status Date / Time No Known Allergies Allergy Verified 05/03/23 23:27 Physical Exam Vitals: Vital Signs Temp Pulse Resp BP BP Pulse Ox 05/08/23 12:00 97.9 F 63 24 187/85 93 L 05/08/23 09:14 95 05/08/23 08:20 98 F 60 20 146/88 95 05/08/23 03:37 98.2 F 67 20 164/77 93 L 05/08/23 00:00 74 24 142/66 92 L 05/07/23 20:00 98.2 F 71 24 209/102 92 L 05/07/23 16:00 76 130/69 94 L 05/07/23 14:00 59 L 18 Intake and Output 05/07/23 05/08/23 05/08/23 22:59 06:59 14:59 Intake Total 10 Output Total 2250 200 Balance -2240 -200 Intake: IV 10 Invasive Line 2 10 Oral 0 Output: Urine 2250 200 Uretheral (George) 450 Other: Voiding Method Indwelling Catheter # Voids 1 # Bowel Movements 1 Results CBC & Chem 7: 05/09/23 11:40 05/09/23 11:40 Assessment and Plan Plan: 1patient presented to hospital about 5 days ago with fever and did have right perihilar infiltrate patient has been treated for possible community-acquired pneumonia however repeat x-ray now showing worsening with a question of possible aspiration etiology 2-agree with switching antibiotic from Rocephin to Zosyn 3-aspiration precaution and check swallow evaluation 4-try to obtain a sputum with possible We will follow on clinical condition and cultures to further adjust medication if needed Thank you for this consultation we will follow the patient along with you Dictation was produced using [employer] dictation software. please excuse any grammatical, word or spelling errors. Time with Patient: Greater than 30
[2023-05-09] MEDS: PIPERACILLIN-TAZOBACTAM 3.375 GM in SODIUM CHLORIDE 0.9% 100 ML IVPB SCH ×3 (03:40→20:55)
[2023-05-09] MEDS: TAMSULOSIN 0.4 MG CAP.ER.24H PO SCH (08:42)
[2023-05-09] MEDS: APIXABAN 5 MG TAB PO SCH ×2 (08:42→20:36)
[2023-05-09] MEDS: FUROSEMIDE 20 MG TAB PO SCH (08:42)
[2023-05-09] MEDS: allopurinoL 100 MG TAB PO SCH (08:42)
[2023-05-09] MEDS: lisinopriL 20 MG TAB PO SCH ×2 (08:42→20:36)
[2023-05-09] MEDS: DORZOLAMIDE-TIMOLOL 2.23%/0.68 10ML BTL RIGHT EYE SCH ×2 (08:43→16:45)
[2023-05-09] MEDS: METOPROLOL TARTRATE 25 MG TAB PO SCH ×2 (08:43→20:35)
--- NOTE | 2023-05-09 11:40 | P.PN ---
Subjective HISTORY OF PRESENT ILLNESS: The patient is an 87-year-old male who follows in the office with Dr. Qureshi. He was brought to the emergency room for mental status changes and fever. He was subsequently diagnosed with pneumonia and during that workup, troponins were drawn and found to have mildly abnormal with a flat trend. At the time of my exam the patient denied any chest pain or chest pressure. No dyspnea at rest. DIAGNOSTICS: EKG shows atrial fibrillation with right bundle branch block and left anterior fascicular block Chest x-ray shows right perihilar infiltrate consistent with pneumonia Lab data: CBC 11.2, hemoglobin 13.0, hematocrit 40.6, platelet 212, sodium 141, potassium 2.9, BUN 18, creatinine 0.62, magnesium 1.8, AST 24, ALT 15, troponin 0.11, 0.17, 0.13, TSH 1.01 05/06/2023 Patient is a pleasant 87-year-old male who presented to the hospital with mental status changes and fever. Patient was found to have pneumonia, as well as mildly elevated troponins with a flat trend. Patient today reports that he's feeling okay. He is denying chest pain, shortness of breath, and heart palpitations. Patient is noted to still be in atrial fibrillation on telemetry, however his rate is well-controlled with the metoprolol. 05/07/2023 Patient examined this morning at the bedside. Patient currently denies chest pain or pressure. He denies shortness of breath. He denies palpitations or lightheadedness. Telemetry monitoring reveals atrial fibrillation with a heart rate in the 80s. He has been initiated on Eliquis. 05/08/2023 Patient examined this morning. He is sitting up in the chair. Patient denies chest pain or pressure. He denies shortness of breath. Telemetry reveals atrial fibrillation with controlled ventricular rate. The patient has been hypertensive with a blood pressure near 200 overnight. He is prescribed lisinopril on an outpatient basis which has not yet been resumed. 05/09/2022 Patient examined this morning to bedside. Patient denies chest pain or pressure. He denies shortness of breath. Telemetry reveals atrial fibrillation with controlled ventricular rate. Patient was resumed on lisinopril yesterday. Blood pressures have improved with a reading of 134/88 in the middle of the night and 159/70 this morning. PHYSICAL EXAM: VITAL SIGNS: Reviewed. GENERAL: Well-developed in no acute distress. NECK: Supple. No JVD or thyromegaly LUNGS: Respirations even and unlabored. Lungs essentially clear to auscultation bilaterally. HEART: Irregular rate and rhythm. S1 and S2 heard. EXTREMITIES: Normal range of motion. No clubbing or cyanosis. Peripheral pulses intact. No lower extremity edema ASSESSMENT: Pneumonia, possible aspiration Urinary retention requiring indwelling urinary catheter New onset atrial fibrillation, currently rate controlled Right bundle-branch block with left anterior fascicular block Elevated troponins, flat, not indicative of acute coronary syndrome Hypokalemia History of AAA Hypertension, uncontrolled, improved PLAN: Continue telemetry monitoring. Patient is currently rate controlled at the time of examination Continue current cardiac medications Patient is currently stable from a cardiac perspective We will sign off. Please reconsult if needed. Nurse practitioner note has been reviewed by physician. Signing provider agrees with the documented findings, assessment, and plan of care. Objective - Vital Signs Vital signs: Vital Signs Temp 98.0 F 05/09/23 03:32 Pulse 68 05/09/23 08:00 Resp 16 05/09/23 08:00 BP 159/70 05/09/23 08:00 Pulse Ox 93 L 05/09/23 08:00 FiO2 Intake & Output 05/08/23 05/09/23 05/09/23 18:59 06:59 18:59 Intake Total 180 10 10 Output Total 300 450 200 Balance -120 -440 -190 Intake: IV 10 10 Invasive Line 2 10 10 Oral 180 Output: Urine 300 450 200 Other: Voiding Method Diaper Urinal Urinal Diaper Diaper # Voids 1 # Bowel Movements 1 - Labs CBC & Chem 7: 05/09/23 11:40 05/09/23 11:40 Labs: Microbiology - Last 24 Hours (Table) 05/03/23 22:22 Blood Culture - Final Blood
[2023-05-09 12:08] LABS: Basophils # (A) 0.1 k/uL (0-0.2); Basophils % (A) 1 %; Eosinophils # (A) 0.2 k/uL (0-0.7); Eosinophils % (A) 2 %; HCT 40.4 % (39.0-53.0); HGB 13.3 gm/dL (13.0-17.5); Lymphocytes # (A) 1.2 k/uL (1.0-4.8); Lymphocytes % (A) 14 %; MCH 34.7 pg (25.0-35.0); MCHC 32.9 g/dL (31.0-37.0); MCV 105.2 fL (80.0-100.0); Macrocytosis Slight; Mean Platelet Volume 7.7; Monocytes # (A) 0.5 k/uL (0-1.0); Monocytes % (A) 6 %; Neutrophils # (A) 6.2 k/uL (1.3-7.7); Neutrophils % (A) 75 %; Platelet Count 305 k/uL (150-450); RBC 3.84 m/uL (4.30-5.90); RDW 13.1 % (11.5-15.5); WBC 8.3 k/uL (3.8-10.6)
[2023-05-09] MEDS ORDERED: ALPRAZolam 0.25 MG TAB PO PRN (12:11)
[2023-05-09 12:22] LABS: ALT 33 U/L (4-49); AST 38 U/L (17-59); African American GFR (CKD) >90 (>60 ml/min/1.73 sqM); Albumin 2.8 g/dL (3.5-5.0); Alkaline Phosphatase 161 U/L (38-126); Anion Gap 10 mmol/L; Blood Urea Nitrogen 10 mg/dL (9-20); Calcium 8.1 mg/dL (8.4-10.2); Carbon Dioxide 25 mmol/L (22-30); Chloride 101 mmol/L (98-107); Glucose 115 mg/dL (74-99); Non-African American GFR(CKD) >90 (>60 ml/min/1.73 sqM); Potassium 2.9 mmol/L (3.5-5.1); Sodium 136 mmol/L (137-145); Total Bilirubin 0.8 mg/dL (0.2-1.3); Total Protein 5.7 g/dL (6.3-8.2)
[2023-05-09] MEDS ORDERED: Potassium Replacement Protocol 1 EACH MISC MISCELLANE PRN (12:28)
[2023-05-09] MEDS: POTASSIUM CHLORIDE ER 20 MEQ TAB.ER PO SCH ×2 (12:42→16:43)
--- NOTE | 2023-05-09 14:30 | P.PN ---
Subjective Progress Note Date: 05/09/23 87-year-old male patient with history of hypertension, hyperlipidemia, osteoarthritis, brought to ED by EMS for mental status change and fever; patient is unable to provide any history so all of the history is obtained from the EMS records according to which patient was found to have fever and Mental status change and was brought to ED for further evaluation Patient is being admitted to the hospital for altered mental status, pneumonia, elevated troponin and new onset atrial fibrillation EKG shows atrial fibrillation with right bundle branch block and left anterior fascicular block Chest x-ray shows right perihilar infiltrate consistent with pneumonia Lab data: CBC 11.2, hemoglobin 13.0, hematocrit 40.6, platelet 212, sodium 141, potassium 2.9, BUN 18, creatinine 0.62, magnesium 1.8, AST 24, ALT 15, troponin 0.11, 0.17, 0.13, TSH 1.01 05/06/2023 Patient is seen and evaluated in room at bedside; discussed with nursing staff Vital signs are reviewed and remained stable Patient has been evaluated by cardiology; placed on low-dose beta verna and anticoagulation with L Ruggiero for new onset atrial fibrillation -- Continue with current antibiotics for pneumonia 05/07/2023 This is a pleasant 87 years old male who presents initially with pneumonia, he was transferred for her to the hospital because of confusion and found to have pneumonia and the new onset atrial fibrillation, currently rate controlled on Eliquis. Construction Accountant evaluated the patient for high troponin which is thought secondary to his infection and A. fib. Also has a George catheter for urinary retention evaluated by urologist. Patient still looks tired and PT/OT recommended close monitoring on discharge and possible consistently less than with home health care as patient is high- risk for falling. Patient himself looks somewhat weak alert awake oriented. Some delay in the responses. Looks with mild delirium area Vitals stable. WBC back to normal at 10.4. Patient currently on Eliquis 5 mg, was ceftriaxone, Zithromax, normal saline was discontinue it today. Patient also on oral Lasix 20 mg daily. Repeat chest x-ray in the morning 05/08/2023 He still mildly confused, he knows in the hospital but he thinks he is in my [facility] and he thinks is 1993 but is May 03. He knows name of the president Normal respiratory symptoms however repeat chest x-ray showing new pneumonia developing in the right midlung We changed his antibiotics from subtraction to Zosyn. Protonix calcitonin 0.09. Discontinue IV fluids Check bladder scan and if he is attempting more than 500 mL then we replaced it again. urologist already evaluated him. On the Flomax Patient may be downgraded to general medical floor Cardiology see the patient for A. fib with rate controlled currently 05/09. Patient seen and examined. Potassium this morning is 2.9, replacement ordered. No acute issues overnight, vital signs stable REVIEW OF SYSTEMS: CONSTITUTIONAL: No fever, no malaise,. CARDIOVASCULAR: No chest pain, no palpitations, no syncope. PULMONARY: No shortness of breath, no cough, GASTROINTESTINAL: No diarrhea, no nausea, no vomiting, no abdominal pain. NEUROLOGICAL: No headaches, no weakness, PHYSICAL EXAMINATION: GENERAL: The patient is alert and oriented x3, not in any acute distress. Well developed, well nourished. HEENT: Pupils are round and equally reacting to light. EOMI. No scleral icterus. No conjunctival pallor. Normocephalic, atraumatic. No pharyngeal erythema. No thyromegaly. CARDIOVASCULAR: S1 and S2 present. No murmurs, rubs, or gallops. PULMONARY: Chest is clear to auscultation, no wheezing or crackles. ABDOMEN: Soft, nontender, nondistended, normoactive bowel sounds. No palpable organomegaly. MUSCULOSKELETAL: No joint swelling or deformity. EXTREMITIES: No cyanosis, clubbing, or pedal edema. NEUROLOGICAL: Gross neurological examination did not reveal any focal deficits. SKIN: No rashes. Assessment and plan Community-acquired pneumonia, gram-negative microorganism is suspected with worsening pneumonia Paroxysmal atrial fibrillation, rate controlled Elevated troponin secondary to above Acute urinary retention Metabolic encephalopathy secondary to above Plan: Monitor vital signs Monitor CBC Monitor CMP Continue Zosyn Continue with the eliquis and metoprolol Continue with oral Lasix 20 mg daily. ID following Cardiology following Labs and medication were reviewed.. Continue same treatment. Continue with symptomatic treatment. Resume home medication. Monitor labs and vitals. DVT and GI prophylaxis. Further recommendations as per clinical course of the patient Dictation was produced using [employer] dictation software. please excuse any grammatical, word or spelling errors. Objective - Vital Signs Vital signs: Vital Signs Temp 98.0 F 05/09/23 03:32 Pulse 68 05/09/23 08:00 Resp 16 05/09/23 08:00 BP 159/70 05/09/23 08:00 Pulse Ox 93 L 05/09/23 08:00 FiO2 Intake & Output 05/08/23 05/09/23 05/09/23 18:59 06:59 18:59 Intake Total 180 10 10 Output Total 300 450 200 Balance -120 -440 -190 Intake: IV 10 10 Invasive Line 2 10 10 Oral 180 Output: Urine 300 450 200 Other: Voiding Method Diaper Urinal Urinal Diaper Diaper # Voids 1 # Bowel Movements 1 - Labs CBC & Chem 7: 05/09/23 11:40 05/09/23 11:40 Labs: Microbiology - Last 24 Hours (Table) 05/03/23 22:22 Blood Culture - Final Blood
--- NOTE | 2023-05-09 18:40 | P.PN ---
Subjective Progress Note Date: 05/09/23 Principal diagnosis: Reason for follow-up with aspiration pneumonia Patient is a 87-year-old male with a past medical history significant for hypertension hyperlipidemia osteoarthritis history of prostate disorder presented to the hospital for evaluation of mental status, patient also have a fever chest x-ray suspicious for perihilar infiltrate treated with Rocephin did have worsening of the chest x-ray antibiotic was switched to Zosyn infectious disease was consulted. On today's evaluation that is 05/09/2023 the patient remains to be afebrile, the patient is breathing comfortably on room air patient does not seem to be any distress elevated good historian he did have a cough not bring up any sputum no vomiting or diarrhea has been reported by the nursing staff. Patient did have white count of 8.3, creatinine 0.59 Objective - Vital Signs Vital signs: Vital Signs Temp 98.0 F 05/09/23 03:32 Pulse 68 05/09/23 08:00 Resp 16 05/09/23 08:00 BP 159/70 05/09/23 08:00 Pulse Ox 93 L 05/09/23 08:00 FiO2 Intake & Output 05/08/23 05/09/23 05/09/23 18:59 06:59 18:59 Intake Total 180 10 10 Output Total 300 450 200 Balance -120 -440 -190 Intake: IV 10 10 Invasive Line 2 10 10 Oral 180 Output: Urine 300 450 200 Other: Voiding Method Diaper Urinal Urinal Diaper Diaper # Voids 1 # Bowel Movements 1 1 - Exam GENERAL DESCRIPTION: An elderly male lying in bed in no distress RESPIRATORY SYSTEM: Unlabored breathing , decreased breath sounds at bases HEART: S1 S2 regular rate and rhythm , ABDOMEN: Soft , no tenderness EXTREMITIES: No edema feet - Labs CBC & Chem 7: 05/09/23 11:40 05/09/23 11:40 Labs: Abnormal Lab Results - Last 24 Hours (Table) 05/09/23 05/09/23 Range/Units 11:40 11:40 RBC 3.84 L (4.30-5.90) m/uL MCV 105.2 H (80.0-100.0) fL Sodium 136 L (137-145) mmol/L Potassium 2.9 L (3.5-5.1) mmol/L Creatinine 0.59 L (0.66-1.25) mg/dL Glucose 115 H (74-99) mg/dL Calcium 8.1 L (8.4-10.2) mg/dL Alkaline Phosphatase 161 H (38-126) U/L Total Protein 5.7 L (6.3-8.2) g/dL Albumin 2.8 L (3.5-5.0) g/dL Microbiology - Last 24 Hours (Table) 05/03/23 22:22 Blood Culture - Final Blood Assessment and Plan (1) Aspiration pneumonia Current Visit: Yes Status: Acute Code(s): J69.0 - PNEUMONITIS DUE TO INHALATION OF FOOD AND VOMIT SNOMED Code(s): 547641315 Plan: 1patient presented to hospital about 5 days ago with fever and did have right perihilar infiltrate patient has been treated for possible community-acquired pneumonia however repeat x-ray now showing worsening with a question of possible aspiration etiology 2-aspiration precaution and check swallow evaluation 3-try to obtain a sputum for Gram stain culture 4-continue with Zosyn and monitor clinical course closely Dictation was produced using [employer] dictation software. please excuse any grammatical, word or spelling errors. Time with Patient: Less than 30
[2023-05-09] MEDS: CHOLECALCIFEROL 25 MCG (1000 IU) TABLET PO SCH (20:35)
[2023-05-09] MEDS: FAMOTIDINE 20 MG TAB PO SCH (20:36)
[2023-05-09] MEDS: NIACIN TR 500 MG CAPLET PO SCH (20:36)
[2023-05-09] MEDS: ATORVASTATIN 10 MG TAB PO SCH (20:58)
[2023-05-10] MEDS: PIPERACILLIN-TAZOBACTAM 3.375 GM in SODIUM CHLORIDE 0.9% 100 ML IVPB SCH ×2 (04:11→13:14)
[2023-05-10] MEDS: ACETAMINOPHEN TAB 325 MG TAB PO PRN (04:13)
[2023-05-10 05:24] LABS: Basophils % (A) 1 %; Eosinophils # (A) 0.3 k/uL (0-0.7); Eosinophils % (A) 4 %; HCT 37.2 % (39.0-53.0); HGB 12.3 gm/dL (13.0-17.5); Lymphocytes # (A) 1.3 k/uL (1.0-4.8); Lymphocytes % (A) 18 %; MCH 34.9 pg (25.0-35.0); MCHC 33.1 g/dL (31.0-37.0); MCV 105.3 fL (80.0-100.0); Macrocytosis Slight; Mean Platelet Volume 7.8; Monocytes # (A) 0.4 k/uL (0-1.0); Monocytes % (A) 5 %; Neutrophils # (A) 5.1 k/uL (1.3-7.7); Neutrophils % (A) 70 %; Platelet Count 294 k/uL (150-450); RBC 3.53 m/uL (4.30-5.90); RDW 13.1 % (11.5-15.5); WBC 7.3 k/uL (3.8-10.6)
[2023-05-10 05:35] LABS: ALT 32 U/L (4-49); AST 41 U/L (17-59); African American GFR (CKD) >90 (>60 ml/min/1.73 sqM); Albumin 2.6 g/dL (3.5-5.0); Alkaline Phosphatase 145 U/L (38-126); Anion Gap 7 mmol/L; Blood Urea Nitrogen 8 mg/dL (9-20); Carbon Dioxide 25 mmol/L (22-30); Chloride 104 mmol/L (98-107); Glucose 111 mg/dL (74-99); Non-African American GFR(CKD) 89 (>60 ml/min/1.73 sqM); Potassium 3.1 mmol/L (3.5-5.1); Sodium 136 mmol/L (137-145); Total Bilirubin 0.6 mg/dL (0.2-1.3); Total Protein 5.2 g/dL (6.3-8.2)
[2023-05-10 07:38] VITALS: PULSE 62
[2023-05-10] MEDS: METOPROLOL TARTRATE 25 MG TAB PO SCH (09:25)
[2023-05-10] MEDS: APIXABAN 5 MG TAB PO SCH (09:25)
[2023-05-10] MEDS: TAMSULOSIN 0.4 MG CAP.ER.24H PO SCH (09:25)
[2023-05-10] MEDS: allopurinoL 100 MG TAB PO SCH (09:25)
[2023-05-10] MEDS: lisinopriL 20 MG TAB PO SCH (09:26)
[2023-05-10] MEDS: FUROSEMIDE 20 MG TAB PO SCH (09:26)
[2023-05-10] MEDS: POTASSIUM CHLORIDE ER 20 MEQ TAB.ER PO SCH ×2 (13:14→13:22)
--- NOTE | 2023-05-10 14:48 | P.DS ---
Providers Date of admission: 05/04/23 01:34 Attending physician: Samanta Burnette Consults: 05/05/23 12:57 Consult Physician Routine Consulting Provider: Nato Baig Consult Reason/Comments: urinary retention Do you want consulting provider notified?: Yes 05/08/23 11:59 Consult Physician Urgent Consulting Provider: Indira Javier Consult Reason/Comments: worsening pna Do you want consulting provider notified?: Yes Primary care physician: [facility] Course: Final Diagnosis Community-acquired pneumonia with sepsis POA Urinary retention requiring IDC Paroxysmal atrial fibrillation, rate controlled Troponin leak from sepsis. Metabolic encephalopathy secondary to above Hypertension Hyperlipidemia hx Former smoker Do Not Resuscitate Do Not Intubate Discharge Disposition Patient is stable for discharge to subacute rehab. Patient will discharge with indwelling catheter due to urinary retention. Continues on flomax. ID recommending 7 day course of oral avelox on discharge. Recommending to repeat labs in 2 to 3 days. Currently on a dysphgia 3 chopped diet due to poor dentition. Hospital Course This is an 87-year-old male patient with history of hypertension, hyperlipidemia, osteoarthritis, brought to ED by EMS for mental status change and fever; patient is unable to provide any history so all of the history is obtained from the EMS records according to which patient was found to have fever and Mental status change and was brought to ED for further evaluation. On admission EKG shows atrial fibrillation with right BBB. Chest xray was showing right perihilar infiltrate consistent with pneumonia. Sodium 141, and potassium 2.9, BUN 18 creatinine 0.62. Troponin elevation of 0.11, 0.17, 0.13. TSH 1.01. Patient is being admitted to the hospital for altered mental status, pneumonia, elevated troponin and new onset atrial fibrillation. He was started on eliquis 5 mg BID for the atrial fibrillation was started on beta verna and heart rate is now controlled. Troponin elevation was considered secondary to infection. Had an echocardiogram done showing EF 45%. He was treated with IV zosyn and Infectious disease consultation. he was also found to have urinary retention was evaluated by urology and recommending to keep in on discharge as he failed the voiding trial. Procalcitonin level 0.09. Patient did mild elevated white count 12.1 on admission, currently down to 7.3. Normal renal function. Hemodynamically stable. Currently alert x 2. He will be discharged to [facility] the [place]. Please see medication reconciliation for a list of current medications. Thank you for allowing us to participate in the care of this patient. The impression and plan of care has been dictated by Vanessa Schultz, Nurse Practitioner as directed. Dr. Kirill MD I have performed a history and physical examination and medical decision making of this patient, discussed the same with the dictator, and agree with the dictators assessment and plan as written, documented as a scribe. Based on total visit time, I have performed more than 50% of this visit. Patient Condition at Discharge: Fair Plan - Discharge Summary New Discharge Prescriptions: New Ipratropium-Albuterol Nebulize [Duoneb 0.5 mg-3 mg/3 ml Soln] 3 ml INHALATION RT-QID PRN each PRN Reason: Dyspnea Moxifloxacin HCl [Avelox] 400 mg PO DAILY 7 Days #7 tab Apixaban [Eliquis] 5 mg PO BID tab Potassium Chloride ER [K-Dur 20] 20 meq PO DAILY #30 tab Metoprolol Tartrate [Lopressor] 25 mg PO BID tab Famotidine [Pepcid] 20 mg PO HS tab Continue Tamsulosin HCl [Flomax] 0.4 mg PO HS@0800 lisinopriL [Prinivil] 20 mg PO BID@0800,2000 Simvastatin [Zocor] 20 mg PO HS@2000 Frederick-3 Fatty Acids/Fish Oil [Fish Oil 1,000 mg Softgel] 1 cap PO DAILY@0800 Calcium Carbonate [Calcium] 600 mg PO DAILY@0800 Furosemide [Lasix] 20 mg PO DAILY@0800 Lidocaine 5% Patch [Lidoderm 5% Patch] 1 patch TOPICAL DAILY #10 patch Cholecalciferol [Vitamin D3 (25 Mcg = 1000 Iu)] 50 mcg PO HS@2000 L.acidoph,Paracasei, B.lactis [Probiotic] 1 cap PO HS@2000 Niacin [Niavasc] 1,000 mg PO HS@2000 Melatonin 20 mg PO HS@2000 allopurinoL [Zyloprim] 100 mg PO DAILY@0800 Dorzolamide/Timolol/Pf [Dorzolamide 2%-Timolol 0.5%] 1 drop RIGHT EYE BID@0800,1700 Discontinued Vitamin A 2,400 mcg PO HS@2000 Zolpidem [Ambien] 5 mg PO HS@1999 Ibuprofen [Motrin] 800 mg PO QID@02,08,14,20 Discharge Medication List Frederick-3 Fatty Acids/Fish Oil [Fish Oil 1,000 mg Softgel] 1 cap PO DAILY@0801/13/18 [History] Simvastatin [Zocor] 20 mg PO HS@199901/13/18 [History] Tamsulosin HCl [Flomax] 0.4 mg PO HS@79901/13/18 [History] lisinopriL [Prinivil] 20 mg PO BID@08,199901/13/18 [History] Calcium Carbonate [Calcium] 600 mg PO DAILY@0800 03/03/18 [History] Lidocaine 5% Patch [Lidoderm 5% Patch] 1 patch TOPICAL DAILY #10 patch 04/26/23 [Rx] Cholecalciferol [Vitamin D3 (25 Mcg = 1000 Iu)] 50 mcg PO HS@199905/03/23 [History] Dorzolamide/Timolol/Pf [Dorzolamide 2%-Timolol 0.5%] 1 drop RIGHT EYE BID@0800,1700 05/03/23 [History] Furosemide [Lasix] 20 mg PO DAILY@0800 05/03/23 [History] L.acidoph,Paracasei, B.lactis [Probiotic] 1 cap PO HS@199905/03/23 [History] Melatonin 20 mg PO HS@199905/03/23 [History] Niacin [Niavasc] 1,000 mg PO HS@199905/03/23 [History] allopurinoL [Zyloprim] 100 mg PO DAILY@0805/03/23 [History] Apixaban [Eliquis] 5 mg PO BID tab 05/10/23 [Rx] Famotidine [Pepcid] 20 mg PO HS tab 05/10/23 [Rx] Ipratropium-Albuterol Nebulize [Duoneb 0.5 mg-3 mg/3 ml Soln] 3 ml INHALATION RT-QID PRN each 05/10/23 [Rx] Metoprolol Tartrate [Lopressor] 25 mg PO BID tab 05/10/23 [Rx] Moxifloxacin HCl [Avelox] 400 mg PO DAILY 7 Days #7 tab 05/10/23 [Rx] Potassium Chloride ER [K-Dur 20] 20 meq PO DAILY #30 tab 05/10/23 [Rx] Follow up Appointment(s)/Referral(s): Devan Dupont MD [Primary Care Provider] - 1-2 days Ambulatory/Diagnostic Orders: Basic Metabolic Panel [LAB.AMB] Time Frame: 3 Days, Location: None Selected Activity/Diet/Wound Care/Special Instructions: Please call daughterErasto, to review discharge instructions
[2023-05-10 15:18] VITALS: BP 128/75; RESP 18; TEMP 97.6; BMI 20.9
--- NOTE | 2023-05-10 16:38 | P.PN ---
Subjective Progress Note Date: 05/10/23 Principal diagnosis: Reason for follow-up with aspiration pneumonia Patient is a 87-year-old male with a past medical history significant for hypertension hyperlipidemia osteoarthritis history of prostate disorder presented to the hospital for evaluation of mental status, patient also have a fever chest x-ray suspicious for perihilar infiltrate treated with Rocephin did have worsening of the chest x-ray antibiotic was switched to Zosyn infectious disease was consulted. On today's evaluation that is 05/10/2023 the patient continues to be afebrile, the patient is breathing comfortably on room air patient very hard of hearing underweight good historian no breathing comfortably no cough was noticed no vomiting or diarrhea has been reported by the nursing staff Patient did have white count of 7.3, creatinine 0.62 Objective - Vital Signs Vital signs: Vital Signs Temp 97.6 F 05/10/23 15:08 Pulse 62 05/10/23 15:08 Resp 18 05/10/23 15:08 BP 128/75 05/10/23 15:08 Pulse Ox 93 L 05/10/23 15:08 FiO2 Intake & Output 05/09/23 05/10/23 05/10/23 18:59 06:59 18:59 Intake Total 10 50 Output Total 300 1000 735 Balance -290 -1000 -685 Weight 70.307 kg Intake: IV 10 Invasive Line 2 10 Oral 50 Output: Urine 300 1000 400 Straight 1000 400 Post Void Residual 335 Other: Voiding Method Urinal Urinal Indwelling Catheter Diaper Diaper # Voids 0 0 # Bowel Movements 1 - Exam GENERAL DESCRIPTION: An elderly male lying in bed in no distress RESPIRATORY SYSTEM: Unlabored breathing , decreased breath sounds at bases HEART: S1 S2 regular rate and rhythm , ABDOMEN: Soft , no tenderness EXTREMITIES: No edema feet - Labs CBC & Chem 7: 05/10/23 04:24 05/10/23 04:24 Labs: Abnormal Lab Results - Last 24 Hours (Table) 05/10/23 05/10/23 Range/Units 04:24 04:24 RBC 3.53 L (4.30-5.90) m/uL Hgb 12.3 L (13.0-17.5) gm/dL Hct 37.2 L (39.0-53.0) % MCV 105.3 H (80.0-100.0) fL Sodium 136 L (137-145) mmol/L Potassium 3.1 L (3.5-5.1) mmol/L BUN 8 L (9-20) mg/dL Creatinine 0.62 L (0.66-1.25) mg/dL Glucose 111 H (74-99) mg/dL Calcium 8.0 L (8.4-10.2) mg/dL Alkaline Phosphatase 145 H (38-126) U/L Total Protein 5.2 L (6.3-8.2) g/dL Albumin 2.6 L (3.5-5.0) g/dL Assessment and Plan (1) Aspiration pneumonia Status: Acute Code(s): J69.0 - PNEUMONITIS DUE TO INHALATION OF FOOD AND VOMIT SNOMED Code(s): 561242810 Plan: 1patient presented to hospital with fever and did have right perihilar infiltrate patient has been treated for possible community-acquired pneumonia h owever repeat x-ray now showing worsening with a question of possible aspiration etiology 2-aspiration precaution 3-patient did have symptomatic improvement with Zosyn and plan to finish therapy with a 7-day course of oral Avelox on discharge this was discussed with the PARKING MANAGER for admitting team working on discharge Dictation was produced using [employer] dictation software. please excuse any grammatical, word or spelling errors. Time with Patient: Less than 30
== END 2023-05-10 16:25 | DRG 871 ==
LOC: EC 20:49 → 4SSUR 05-04 01:34 → 3SCARD 05-04 02:07 → 6NMEDSUR 05-10 01:51
PROVIDERS: ADMIT Hospitalist; ATTEND Hospitalist
DX: A41.59 Other Gram-negative sepsis (principal); G92.8 Other toxic encephalopathy; G93.41 Metabolic encephalopathy; J15.69 Pneumonia due to other Gram-negative bacteria; J69.0 Pneumonitis due to inhalation of food and vomit; I48.19 Other persistent atrial fibrillation; I45.2 Bifascicular block; F05 Delirium due to known physiological condition; Z66 Do not resuscitate; E78.5 Hyperlipidemia, unspecified; I10 Essential (primary) hypertension; R79.89 Other specified abnormal findings of blood chemistry; Z68.21 Body mass index [BMI] 21.0-21.9, adult; R33.8 Other retention of urine; N40.1 Benign prostatic hyperplasia with lower urinary tract symptoms; E87.6 Hypokalemia; I08.1 Rheumatic disorders of both mitral and tricuspid valves; H54.8 Legal blindness, as defined in USA; H91.90 Unspecified hearing loss, unspecified ear; Z11.52 Encounter for screening for COVID-19; Z87.19 Personal history of other diseases of the digestive system; Z87.01 Personal history of pneumonia (recurrent); R63.6 Underweight; Z79.01 Long term (current) use of anticoagulants; Z79.899 Other long term (current) drug therapy; Z86.79 Personal history of other diseases of the circulatory system; Z87.891 Personal history of nicotine dependence; Z98.49 Cataract extraction status, unspecified eye
CPT/HCPCS: 36415; 51701; 71045; 80048; 80053; 81003; 82272; 83735; 84100; 84132; 84145; 84443; 84484; 85025; 85610; 85730; 87040; 87636; 93005; 93306; 94760; 96361; 96365; 96366; 96367; 99285

== ENCOUNTER 2023-05-19 11:04 | Inpatient (IN) | payer MEDICARE ==
--- NOTE | 2023-05-19 11:24 | ED ---
General Adult HPI - General Chief complaint: Altered Mental Status Stated complaint: AMS Time Seen by Provider: 05/19/23 11:10 Source: patient, EMS, RN notes reviewed, old records reviewed Mode of arrival: EMS Limitations: altered mental status - History of Present Illness Initial comments: This is an 88-year-old male who presents emergency Department from [facility] because he became unresponsive at one time and when EMS arrived he was responding to them but states he does not want to talkto Patient did follow simple commands is to cut his tongue and take deep breaths however he will not give any more history are not confirm whether he isn't in any distress. Patient we are told is being treated for pneumonia. No other history is able to be obtained at this time - Related Data Home Medications Medication Instructions Recorded Confirmed Oak[place]-3 Fatty Acids/Fish Oil [Fish 1 cap PO DAILY@79901/13/18 05/03/23 Oil 1,000 mg Softgel] Simvastatin [Zocor] 20 mg PO HS@199901/13/18 05/03/23 Tamsulosin HCl [Flomax] 0.4 mg PO HS@79901/13/18 05/03/23 lisinopriL [Prinivil] 20 mg PO BID@08,199901/13/18 05/03/23 Calcium Carbonate [Calcium] 600 mg PO DAILY@79903/03/18 05/03/23 Cholecalciferol [Vitamin D3 (25 50 mcg PO HS@199905/03/23 05/03/23 Mcg = 1000 Iu)] Dorzolamide/Timolol/Pf 1 drop RIGHT EYE BID@0800,1700 05/03/23 05/03/23 [Dorzolamide 2%-Timolol 0.5%] Furosemide [Lasix] 20 mg PO DAILY@79905/03/23 05/03/23 L.acidoph,Paracasei, B.lactis 1 cap PO HS@199905/03/23 05/03/23 [Probiotic] Melatonin 20 mg PO HS@199905/03/23 05/03/23 Niacin [Niavasc] 1,000 mg PO HS@199905/03/23 05/03/23 allopurinoL [Zyloprim] 100 mg PO DAILY@79905/03/23 05/03/23 Previous Rx's Medication Instructions Recorded Lidocaine 5% Patch [Lidoderm 5% 1 patch TOPICAL DAILY #10 patch 04/26/23 Patch] Apixaban [Eliquis] 5 mg PO BID tab 05/10/23 Famotidine [Pepcid] 20 mg PO HS tab 05/10/23 Ipratropium-Albuterol Nebulize 3 ml INHALATION RT-QID PRN each 05/10/23 [Duoneb 0.5 mg-3 mg/3 ml Soln] Metoprolol Tartrate [Lopressor] 25 mg PO BID tab 05/10/23 Moxifloxacin HCl [Avelox] 400 mg PO DAILY 7 Days #7 tab 05/10/23 Potassium Chloride ER [K-Dur 20] 20 meq PO DAILY #30 tab 05/10/23 Allergies Allergy/AdvReac Type Severity Reaction Status Date / Time No Known Allergies Allergy Verified 05/19/23 11:22 Review of Systems ROS Statement: Those systems with pertinent positive or pertinent negative responses have been documented in the HPI. ROS Other: All systems not noted in ROS Statement are negative. 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 glaucoma sx Past Anesthesia/Blood Transfusion Reactions: No Reported Reaction Past Psychological History: No Psychological Hx Reported Smoking Status: Never smoker Past Alcohol Use History: Rare Past Drug Use History: None Reported - Past Family History Father Additional Family Medical History / Comment(s): from a "slow heart" Mother Family Medical History: CVA/TIA General Exam - General Exam Comments Initial Comments: GENERAL: Patient is cachectic and tachypneic. ENT: Neck is soft and supple. No significant lymphadenopathy is noted. Oropharynx is clear. Moist mucous membranes. Neck has full range of motion without eliciting any pain. EYES: The sclera were anicteric and conjunctiva were pink and moist. Extraocular movements were intact and pupils were equal round and reactive to light. Eyelids were unremarkable. PULMONARY: Patient is tachypneic. Good breath sounds bilaterally. No audible rales rhonchi or wheezing was noted. CARDIOVASCULAR: There is a regular rate and rhythm without any murmurs gallops or rubs. ABDOMEN: Soft and nontender with normal bowel sounds. SKIN: Skin is clear with no lesions or rashes and otherwise unremarkable. NEUROLOGIC: Patient is alert and oriented 2. Cranial nerves II through XII are grossly in tact. Motor and sensory are also intact. Normal speech, volume and content. Symmetrical smile. MUSCULOSKELETAL: Normal extremities with adequate strength and full range of motion. No lower extremity swelling or edema. No calf tenderness. LYMPHATICS: No significant lymphadenopathy is noted PSYCHIATRIC: Unable to assess Limitations: altered mental status Course Vital Signs 05/19/23 05/19/23 05/19/23 11:08 11:31 11:41 Temperature 98.7 F Pulse Rate 84 80 Respiratory 24 80 H Rate Blood Pressure 81/41 76/37 O2 Sat by Pulse 100 Oximetry Fraction of 100 Inspired Oxygen (FIO2) 05/19/23 05/19/23 11:50 13:32 Temperature Pulse Rate 90 Respiratory 24 Rate Blood Pressure 88/73 O2 Sat by Pulse 95 Oximetry Fraction of 80 Inspired Oxygen (FIO2) Medical Decision Making - Medical Decision Making EKG as interpreted by myself EKG shows atrial fibrillation at 92 bpm QRS is under 22 QT interval 370 QTC is 421. Patient has a right bundle branch block. Patient has Q waves inferiorly Was pt. sent in by a medical professional or institution (JADE Foreman, SANDBLAST OR SHOTBLAST EQUIPMENT TENDER, urgent care, hospital, or custodial...) When possible be specific @ -long term sent the patient in for an unresponsive episode Did you speak to anyone other than the patient for history (EMS, parent, family, police, friend...)? What history was obtained from this source @ -EMS gave all the history patient was not willing to speak to us Did you review nursing and triage notes (agree or disagree)? Why? @ -I reviewed and agree with nursing and triage notes Were old charts reviewed (outside hosp., previous admission, EMS record, old EKG, old radiological studies, urgent care reports/EKG's, custodial records)? Report findings @ -I reviewed patient's charts patient's prior charts and patient's prior lab work Differential Diagnosis (chest pain, altered mental status, abdominal pain women, abdominal pain men, vaginal bleeding, weakness, fever, dyspnea, syncope, headache, dizziness, GI bleed, back pain, seizure, CVA, palpatations, mental health, musculoskeletal)? @ -Differential Altered Mental Status: Hypoglycemia, DKA, hypercapnia, ETOH, overdose, CO poisoning, trauma, myxedema coma, HTN encephalopathy, infection, encephalitis, psychosis, intercranial hemorrhage, hepatic encephalopathy, meningitis, CVA, this is not meant to be an all-inclusive list EKG interpreted by me (3pts min.). @ -As above X-rays interpreted by me (1pt min.). @ -Patient's chest x-ray shows a resolving infiltrate CT interpreted by me (1pt min.). @ -None done U/S interpreted by me (1pt. min.). @ -None done What testing was considered but not performed or refused? (CT, X-rays, U/S, labs)? Why? @ -None What meds were considered but not given or refused? Why? @ -None Did you discuss the management of the patient with other professionals (professionals i.e. , PA, SANDBLAST OR SHOTBLAST EQUIPMENT TENDER, lab, RT, psych nurse, social media editor, gas engine repairer, teacher, investigation officer, family service caseworker)? Give summary @ -I spoke with Dr. Fernandes he agreed to admit the patient admitted the patient wrote admitting orders Was smoking cessation discussed for >3mins.? @ -No Was critical care preformed (if so, how long)? @ -No Were there social determinants of health that impacted care today? How? (Homelessness, low income, unemployed, alcoholism, drug addiction, transportation, low edu. Level, literacy, decrease access to med. care, long term, rehab)? @ -No Was there de-escalation of care discussed even if they declined (Discuss DNR or withdrawal of care, Hospice)? DNR status @ -No What co-morbidities impacted this encounter? (DM, HTN, Smoking, COPD, CAD, Can cer, CVA, ARF, Chemo, Hep., AIDS, mental health diagnosis, sleep apnea, morbid obesity)? @ -None Was patient admitted / discharged? Hospital course, mention meds given and route, prescriptions, significant lab abnormalities, going to OR and other pertinent info. @ -Patient urinary tract infections the patient antibiotics. X-ray showed a re solving antibiotics which will cover well. Patient had an elevated troponin I will repeat the troponins every 3 hours. Patient also had acute renal failure he was given 2 L of IV fluid which helped his blood pressure and made the patient more responsive . Patient's urine came back and was determined to be infected at 1:45 PM Undiagnosed new problem with uncertain prognosis? @ -No Drug Therapy requiring intensive monitoring for toxicity (Heparin, Nitro, Insulin, Cardizem)? @ -No Were any procedures done? @ -No Diagnosis/symptom? @ -Urinary Tract infection Acute, or Chronic, or Acute on Chronic? @ -Acute Uncomplicated (without systemic symptoms) or Complicated (systemic symptoms)? @ -Complicated Side effects of treatment? @ -No Exacerbation, Progression, or Severe Exacerbation? @ -No Poses a threat to life or bodily function? How? (Chest pain, USA, NV, pneumonia, PE, COPD, DKA, ARF, appy, cholecystitis, CVA, Diverticulitis, Homicidal, Suicidal, threat to staff... and all critical care pts) @ -Yes is currently to sepsis and end organ dysfunction Diagnosis/symptom? @ -Sepsis Acute, or Chronic, or Acute on Chronic? @ -Acute Uncomplicated (without systemic symptoms) or Complicated (systemic symptoms)? @ -Complicated Side effects of treatment? @ -none Exacerbation, Progression, or Severe Exacerbation] @ -no Poses a threat to life or bodily function? @ -Yes this could lead) dysfunction secondary to poor perfusion Diagnosis/symptom? @ -N STEMI Acute, or Chronic, or Acute on Chronic? @ -Acute Uncomplicated (without systemic symptoms) or Complicated (systemic symptoms)? @ -Complicated Side effects of treatment? @ -none Exacerbation, Progression, or Severe Exacerbation] @ -no Poses a threat to life or bodily function? @ -Yes this could lead to an NV and end organ dysfunction Diagnosis/symptom? @ -Acute renal failure Acute, or Chronic, or Acute on Chronic? @ -Acute Uncomplicated (without systemic symptoms) or Complicated (systemic symptoms)? @ -Complicated Side effects of treatment? @ -none Exacerbation, Progression, or Severe Exacerbation] @ -no Poses a threat to life or bodily function? @ -no - Lab Data Result diagrams: 05/19/23 11:39 05/19/23 11:39 Lab Results 05/19/23 05/19/23 05/19/23 Range/Units 11:23 11:39 11:39 WBC 12.3 H (3.8-10.6) k/uL RBC 3.74 L (4.30-5.90) m/uL Hgb 12.8 L (13.0-17.5) gm/dL Hct 40.1 (39.0-53.0) % MCV 107.3 H (80.0-100.0) fL MCH 34.2 (25.0-35.0) pg MCHC 31.8 (31.0-37.0) g/dL RDW 12.9 (11.5-15.5) % Plt Count 338 (150-450) k/uL MPV 8.0 Neutrophils % 81 % Lymphocytes % 12 % Monocytes % 3 % Eosinophils % 2 % Basophils % 0 % Neutrophils # 10.0 H (1.3-7.7) k/uL Lymphocytes # 1.5 (1.0-4.8) k/uL Monocytes # 0.4 (0-1.0) k/uL Eosinophils # 0.3 (0-0.7) k/uL Basophils # 0.1 (0-0.2) k/uL Hypochromasia Slight Macrocytosis Moderate PT 18.6 H (10.0-12.5) sec INR 1.8 H (<1.2) APTT 29.0 (22.0-30.0) sec Sample Site Right Radial ABG pH 7.42 (7.35-7.45) ABG pCO2 32 L (35-45) mmHg ABG pO2 151 H (83-108) mmHg ABG HCO3 21 (21-25) mmol/L ABG Total CO2 22 (19-24) mmol/L ABG O2 Saturation 98.9 H (94-97) % ABG Base Excess -4.1 mmol/L Stephane Test Yes FiO2 100 % Sodium (137-145) mmol/L Potassium (3.5-5.1) mmol/L Chloride (98-107) mmol/L Carbon Dioxide (22-30) mmol/L Anion Gap mmol/L BUN (9-20) mg/dL Creatinine (0.66-1.25) mg/dL Est GFR (CKD-EPI)AfAm (>60 ml/min/1.73 sqM) Est GFR (CKD-EPI)NonAf (>60 ml/min/1.73 sqM) Glucose (74-99) mg/dL POC Glucose (mg/dL) (70-110) mg/dL POC Glu Stock Broker Supervisor ID Plasma Lactic Acid Cesar (0.7-2.0) mmol/L Calcium (8.4-10.2) mg/dL Magnesium (1.6-2.3) mg/dL Total Bilirubin (0.2-1.3) mg/dL AST (17-59) U/L ALT (4-49) U/L Alkaline Phosphatase (38-126) U/L Ammonia (<30) umol/L Troponin I (0.000-0.034) ng/mL Total Protein (6.3-8.2) g/dL Albumin (3.5-5.0) g/dL Urine Color Urine Appearance (Clear) Urine pH (5.0-8.0) Ur Specific [place] (1.001-1.035) Urine Protein (Negative) Urine Glucose (UA) (Negative) Urine Ketones (Negative) Urine Blood (Negative) Urine Nitrite (Negative) Urine Bilirubin (Negative) Urine Urobilinogen (<2.0) mg/dL Ur Leukocyte Esterase (Negative) Urine RBC (0-5) /hpf Urine WBC (0-5) /hpf Urine WBC Clumps (None) /hpf Ur Squamous Epith Cells (0-4) /hpf Urine Bacteria (None) /hpf Hyaline Casts (0-2) /lpf Urine Opiates Screen (NotDetected) Ur Oxycodone Screen (NotDetected) Urine Methadone Screen (NotDetected) Ur Barbiturates Screen (NotDetected) U Tricyclic Antidepress (NotDetected) Ur Phencyclidine Scrn (NotDetected) Ur Amphetamines Screen (NotDetected) U Methamphetamines Scrn (NotDetected) U Benzodiazepines Scrn (NotDetected) Urine Cocaine Screen (NotDetected) U Marijuana (THC) Screen (NotDetected) 05/19/23 05/19/23 05/19/23 Range/Units 11:39 11:39 11:39 WBC (3.8-10.6) k/uL RBC (4.30-5.90) m/uL Hgb (13.0-17.5) gm/dL Hct (39.0-53.0) % MCV (80.0-100.0) fL MCH (25.0-35.0) pg MCHC (31.0-37.0) g/dL RDW (11.5-15.5) % Plt Count (150-450) k/uL MPV Neutrophils % % Lymphocytes % % Monocytes % % Eosinophils % % Basophils % % Neutrophils # (1.3-7.7) k/uL Lymphocytes # (1.0-4.8) k/uL Monocytes # (0-1.0) k/uL Eosinophils # (0-0.7) k/uL Basophils # (0-0.2) k/uL Hypochromasia Macrocytosis PT (10.0-12.5) sec INR (<1.2) APTT (22.0-30.0) sec Sample Site ABG pH (7.35-7.45) ABG pCO2 (35-45) mmHg ABG pO2 (83-108) mmHg ABG HCO3 (21-25) mmol/L ABG Total CO2 (19-24) mmol/L ABG O2 Saturation (94-97) % ABG Base Excess mmol/L Stephane Test FiO2 % Sodium 142 (137-145) mmol/L Potassium 4.0 (3.5-5.1) mmol/L Chloride 113 H (98-107) mmol/L Carbon Dioxide 23 (22-30) mmol/L Anion Gap 6 mmol/L BUN 23 H (9-20) mg/dL Creatinine 1.72 H (0.66-1.25) mg/dL Est GFR (CKD-EPI)AfAm 40 (>60 ml/min/1.73 sqM) Est GFR (CKD-EPI)NonAf 35 (>60 ml/min/1.73 sqM) Glucose 89 (74-99) mg/dL POC Glucose (mg/dL) (70-110) mg/dL POC Glu Stock Broker Supervisor ID Plasma Lactic Acid Cesar (0.7-2.0) mmol/L Calcium 8.0 L (8.4-10.2) mg/dL Magnesium 1.9 (1.6-2.3) mg/dL Total Bilirubin 1.0 (0.2-1.3) mg/dL AST 63 H (17-59) U/L ALT 30 (4-49) U/L Alkaline Phosphatase 156 H (38-126) U/L Ammonia (<30) umol/L Troponin I 0.709 H* (0.000-0.034) ng/mL Total Protein 5.9 L (6.3-8.2) g/dL Albumin 2.9 L (3.5-5.0) g/dL Urine Color Urine Appearance (Clear) Urine pH (5.0-8.0) Ur Specific [place] (1.001-1.035) Urine Protein (Negative) Urine Glucose (UA) (Negative) Urine Ketones (Negative) Urine Blood (Negative) Urine Nitrite (Negative) Urine Bilirubin (Negative) Urine Urobilinogen (<2.0) mg/dL Ur Leukocyte Esterase (Negative) Urine RBC (0-5) /hpf Urine WBC (0-5) /hpf Urine WBC Clumps (None) /hpf Ur Squamous Epith Cells (0-4) /hpf Urine Bacteria (None) /hpf Hyaline Casts (0-2) /lpf Urine Opiates Screen Not Detected (NotDetected) Ur Oxycodone Screen Not Detected (NotDetected) Urine Methadone Screen Not Detected (NotDetected) Ur Barbiturates Screen Not Detected (NotDetected) U Tricyclic Antidepress Not Detected (NotDetected) Ur Phencyclidine Scrn Not Detected (NotDetected) Ur Amphetamines Screen Not Detected (NotDetected) U Methamphetamines Scrn Not Detected (NotDetected) U Benzodiazepines Scrn Not Detected (NotDetected) Urine Cocaine Screen Not Detected (NotDetected) U Marijuana (THC) Screen Not Detected (NotDetected) 05/19/23 05/19/23 05/19/23 Range/Units 11:39 11:39 11:44 WBC (3.8-10.6) k/uL RBC (4.30-5.90) m/uL Hgb (13.0-17.5) gm/dL Hct (39.0-53.0) % MCV (80.0-100.0) fL MCH (25.0-35.0) pg MCHC (31.0-37.0) g/dL RDW (11.5-15.5) % Plt Count (150-450) k/uL MPV Neutrophils % % Lymphocytes % % Monocytes % % Eosinophils % % Basophils % % Neutrophils # (1.3-7.7) k/uL Lymphocytes # (1.0-4.8) k/uL Monocytes # (0-1.0) k/uL Eosinophils # (0-0.7) k/uL Basophils # (0-0.2) k/uL Hypochromasia Macrocytosis PT (10.0-12.5) sec INR (<1.2) APTT (22.0-30.0) sec Sample Site ABG pH (7.35-7.45) ABG pCO2 (35-45) mmHg ABG pO2 (83-108) mmHg ABG HCO3 (21-25) mmol/L ABG Total CO2 (19-24) mmol/L ABG O2 Saturation (94-97) % ABG Base Excess mmol/L Stephane Test FiO2 % Sodium (137-145) mmol/L Potassium (3.5-5.1) mmol/L Chloride (98-107) mmol/L Carbon Dioxide (22-30) mmol/L Anion Gap mmol/L BUN (9-20) mg/dL Creatinine (0.66-1.25) mg/dL Est GFR (CKD-EPI)AfAm (>60 ml/min/1.73 sqM) Est GFR (CKD-EPI)NonAf (>60 ml/min/1.73 sqM) Glucose (74-99) mg/dL POC Glucose (mg/dL) 86 (70-110) mg/dL POC Glu Stock Broker Supervisor ID Natalie Munguia Plasma Lactic Acid Cesar 2.6 H* (0.7-2.0) mmol/L Calcium (8.4-10.2) mg/dL Magnesium (1.6-2.3) mg/dL Total Bilirubin (0.2-1.3) mg/dL AST (17-59) U/L ALT (4-49) U/L Alkaline Phosphatase (38-126) U/L Ammonia <9 (<30) umol/L Troponin I (0.000-0.034) ng/mL Total Protein (6.3-8.2) g/dL Albumin (3.5-5.0) g/dL Urine Color Dark Brown Urine Appearance Turbid (Clear) Urine pH 5.0 (5.0-8.0) Ur Specific [place] 1.024 (1.001-1.035) Urine Protein 2+ H (Negative) Urine Glucose (UA) Negative (Negative) Urine Ketones Negative (Negative) Urine Blood Large H (Negative) Urine Nitrite Negative (Negative) Urine Bilirubin Negative (Negative) Urine Urobilinogen <2.0 (<2.0) mg/dL Ur Leukocyte Esterase Large H (Negative) Urine RBC >182 H (0-5) /hpf Urine WBC >182 H (0-5) /hpf Urine WBC Clumps Many H (None) /hpf Ur Squamous Epith Cells 2 (0-4) /hpf Urine Bacteria Few H (None) /hpf Hyaline Casts 52 H (0-2) /lpf Urine Opiates Screen (NotDetected) Ur Oxycodone Screen (NotDetected) Urine Methadone Screen (NotDetected) Ur Barbiturates Screen (NotDetected) U Tricyclic Antidepress (NotDetected) Ur Phencyclidine Scrn (NotDetected) Ur Amphetamines Screen (NotDetected) U Methamphetamines Scrn (NotDetected) U Benzodiazepines Scrn (NotDetected) Urine Cocaine Screen (NotDetected) U Marijuana (THC) Screen (NotDetected) 05/19/23 Range/Units 12:54 WBC (3.8-10.6) k/uL RBC (4.30-5.90) m/uL Hgb (13.0-17.5) gm/dL Hct (39.0-53.0) % MCV (80.0-100.0) fL MCH (25.0-35.0) pg MCHC (31.0-37.0) g/dL RDW (11.5-15.5) % Plt Count (150-450) k/uL MPV Neutrophils % % Lymphocytes % % Monocytes % % Eosinophils % % Basophils % % Neutrophils # (1.3-7.7) k/uL Lymphocytes # (1.0-4.8) k/uL Monocytes # (0-1.0) k/uL Eosinophils # (0-0.7) k/uL Basophils # (0-0.2) k/uL Hypochromasia Macrocytosis PT (10.0-12.5) sec INR (<1.2) APTT (22.0-30.0) sec Sample Site Right Radial ABG pH 7.41 (7.35-7.45) ABG pCO2 31 L (35-45) mmHg ABG pO2 67 L (83-108) mmHg ABG HCO3 20 L (21-25) mmol/L ABG Total CO2 21 (19-24) mmol/L ABG O2 Saturation 93.5 L (94-97) % ABG Base Excess -4.8 mmol/L Stephane Test Yes FiO2 32 % Sodium (137-145) mmol/L Potassium (3.5-5.1) mmol/L Chloride (98-107) mmol/L Carbon Dioxide (22-30) mmol/L Anion Gap mmol/L BUN (9-20) mg/dL Creatinine (0.66-1.25) mg/dL Est GFR (CKD-EPI)AfAm (>60 ml/min/1.73 sqM) Est GFR (CKD-EPI)NonAf (>60 ml/min/1.73 sqM) Glucose (74-99) mg/dL POC Glucose (mg/dL) (70-110) mg/dL POC Glu Stock Broker Supervisor ID Plasma Lactic Acid Cesar (0.7-2.0) mmol/L Calcium (8.4-10.2) mg/dL Magnesium (1.6-2.3) mg/dL Total Bilirubin (0.2-1.3) mg/dL AST (17-59) U/L ALT (4-49) U/L Alkaline Phosphatase (38-126) U/L Ammonia (<30) umol/L Troponin I (0.000-0.034) ng/mL Total Protein (6.3-8.2) g/dL Albumin (3.5-5.0) g/dL Urine Color Urine Appearance (Clear) Urine pH (5.0-8.0) Ur Specific [place] (1.001-1.035) Urine Protein (Negative) Urine Glucose (UA) (Negative) Urine Ketones (Negative) Urine Blood (Negative) Urine Nitrite (Negative) Urine Bilirubin (Negative) Urine Urobilinogen (<2.0) mg/dL Ur Leukocyte Esterase (Negative) Urine RBC (0-5) /hpf Urine WBC (0-5) /hpf Urine WBC Clumps (None) /hpf Ur Squamous Epith Cells (0-4) /hpf Urine Bacteria (None) /hpf Hyaline Casts (0-2) /lpf Urine Opiates Screen (NotDetected) Ur Oxycodone Screen (NotDetected) Urine Methadone Screen (NotDetected) Ur Barbiturates Screen (NotDetected) U Tricyclic Antidepress (NotDetected) Ur Phencyclidine Scrn (NotDetected) Ur Amphetamines Screen (NotDetected) U Methamphetamines Scrn (NotDetected) U Benzodiazepines Scrn (NotDetected) Urine Cocaine Screen (NotDetected) U Marijuana (THC) Screen (NotDetected) Disposition Clinical Impression: Urinary tract infection, Sepsis, Acute renal failure, Non-ST elevated myocardial infarction (non-STEMI) Disposition: ADMITTED IP TO THIS HOSP Referrals: Gillian Petit MD [Primary Care Provider] - 1-2 days Time of Disposition: 14:33
[2023-05-19 11:28] LABS: ABG Base Excess -4.1 mmol/L; ABG HCO3 21 mmol/L (21-25); ABG Oxygen Saturation 98.9 % (94-97); ABG PCO2 32 mmHg (35-45); ABG PH 7.42 (7.35-7.45); ABG PO2 151 mmHg (83-108); ABG TCO2 22 mmol/L (19-24); Allen Test Performed? Yes
[2023-05-19] MEDS: SODIUM CHLORIDE 0.9% 500 ML 500 ML IV ONE (11:37)
[2023-05-19] MEDS: SODIUM CHLORIDE 0.9% 1,000 ML IV ONE ×2 (11:39→13:34)
[2023-05-19 11:45] LABS: Glucose,Whole Blood 86 mg/dL (70-110)
[2023-05-19 11:58] LABS: Basophils # (A) 0.1 k/uL (0-0.2); Basophils % (A) 0 %; Eosinophils # (A) 0.3 k/uL (0-0.7); Eosinophils % (A) 2 %; HCT 40.1 % (39.0-53.0); HGB 12.8 gm/dL (13.0-17.5); Hypochromasia Slight; Lymphocytes # (A) 1.5 k/uL (1.0-4.8); Lymphocytes % (A) 12 %; MCH 34.2 pg (25.0-35.0); MCHC 31.8 g/dL (31.0-37.0); MCV 107.3 fL (80.0-100.0); Macrocytosis Moderate; Monocytes # (A) 0.4 k/uL (0-1.0); Monocytes % (A) 3 %; Neutrophils % (A) 81 %; Platelet Count 338 k/uL (150-450); RBC 3.74 m/uL (4.30-5.90); RDW 12.9 % (11.5-15.5); WBC 12.3 k/uL (3.8-10.6)
[2023-05-19 12:07] LABS: INR 1.8 (<1.2); Prothrombin Time 18.6 sec (10.0-12.5)
[2023-05-19 12:17] LABS: ALT 30 U/L (4-49); AST 63 U/L (17-59); African American GFR (CKD) 40 (>60 ml/min/1.73 sqM); Albumin 2.9 g/dL (3.5-5.0); Alkaline Phosphatase 156 U/L (38-126); Anion Gap 6 mmol/L; Blood Urea Nitrogen 23 mg/dL (9-20); Carbon Dioxide 23 mmol/L (22-30); Chloride 113 mmol/L (98-107); Glucose 89 mg/dL (74-99); Magnesium 1.9 mg/dL (1.6-2.3); Non-African American GFR(CKD) 35 (>60 ml/min/1.73 sqM); Sodium 142 mmol/L (137-145); Total Protein 5.9 g/dL (6.3-8.2)
[2023-05-19 12:36] LABS: Lactic Acid, Venous 2.6 mmol/L (0.7-2.0)
[2023-05-19 12:48] LABS: Appearance,Urine Turbid (Clear); Bacteria,Urine Few /hpf; Bilirubin,Urine Negative (Negative); Blood,Urine Large (Negative); Color,Urine Dark Brown; Glucose,Urine (UA) Negative (Negative); Hyaline Casts,Urine 52 /lpf (0-2); Ketones,Urine Negative (Negative); Leukocyte Esterase,Urine Large (Negative); Nitrite,Urine Negative (Negative); Protein,Urine 2+ (Negative); RBC,Urine >182 /hpf (0-5); Specific Gravity,Urine 1.024 (1.001-1.035); Squamous Epithelial Cell,Urine 2 /hpf (0-4); Urobilinogen,Urine <2.0 mg/dL (<2.0); WBC,Urine >182 /hpf (0-5)
[2023-05-19 12:55] LABS: Amphetamine Screen,Urine Not Detected (NotDetected); Barbiturate Screen,Urine Not Detected (NotDetected); Benzodiazepines Screen,Urine Not Detected (NotDetected); Cocaine Screen,Urine Not Detected (NotDetected); Methadone Screen, Urine Not Detected (NotDetected); Opiate Screen,Urine Not Detected (NotDetected); Oxycodone Screen, Urine Not Detected (NotDetected); Phencyclidine Screen,Urine Not Detected (NotDetected); Tricyclic Antidepressant,Urine Not Detected (NotDetected); Urn Cannabinoid Scrn Not Detected (NotDetected)
[2023-05-19 12:56] LABS: ABG Base Excess -4.8 mmol/L; ABG HCO3 20 mmol/L (21-25); ABG Oxygen Saturation 93.5 % (94-97); ABG PCO2 31 mmHg (35-45); ABG PH 7.41 (7.35-7.45); ABG PO2 67 mmHg (83-108); ABG TCO2 21 mmol/L (19-24); Allen Test Performed? Yes
--- NOTE | 2023-05-19 13:29 | XR ---
EXAMINATION TYPE: XR chest 1V DATE OF EXAM: 05/19/2023 COMPARISON: 05/08/2023 HISTORY: Altered mental status TECHNIQUE: Single frontal view of the chest is obtained. FINDINGS: As on the prior study, there are diffuse fine interstitial opacities possibly reflecting chronic inte rstitial changes. There is resolution of the small left pleural effusion and small left lung base inf iltrate. The partially consolidative and interstitial opacity in the right mid-upper lung has decreased in the interval with a small residual infiltrate persists. The heart is normal. The osseous structures are intact. There is no pneumothorax. IMPRESSION: 1. Decreasing infiltrate in the right mid to upper lung compared to previous. 2. Resolution of the small effusion and infiltrate in the left lung base. 3. Unchanged diffuse fine interstitial opacities likely chronic in nature.
[2023-05-19] MEDS ORDERED: NITROGLYCERIN SL TABS 0.4 MG TAB SUBLINGUAL PRN (14:35)
[2023-05-19] MEDS ORDERED: ACETAMINOPHEN TAB 325 MG TAB PO PRN (14:47)
[2023-05-19] MEDS ORDERED: ONDANSETRON 4 MG/2 ML VIAL IVP PRN (14:47)
[2023-05-19] MEDS ORDERED: MAG HYDROX/AL HYDROX/SIMETH 30 ML CUP PO PRN (14:47)
[2023-05-19] MEDS ORDERED: NALOXONE 0.4 MG/ML 1 ML VIAL IV PRN (14:47)
--- NOTE | 2023-05-19 15:00 | P.HPIM ---
History of Present Illness H&P Date: 05/19/23 History of present illness; patient is a 87-year-old male patient with past medical history of hypertension, hyperlipidemia, osteoarthritis, atrial fibrillation was brought to the ER from shelter because of an episode of unresponsiveness. The history is limited as patient is a poor historian. According to nursing staff, patient was found to be less responsive this morning, was found slumped in the wheelchair. There was no complain of any fever or chills at the shelter. Patient was being treated for pneumonia at the shelter with Avelox. There was no complain of any chest pain shortness of breath. No complain of any weakness of any extremity. No complain of jerking movement of any extremity. Patient did not lose control over his bowel or urine. When EMS arrived, patient was responsive and was answering and following commands. Because of this episode, patient was brought to the ER Initial lab work done in the ER showed WBC 12.3, hemoglobin 12.8, platelet count 378, sodium 142, potassium 4, BUN 23, creatinine 1.72, lactate 2.6, troponin 0.709 UA done showed large amount of blood, large amount of leukocyte Estrace, Urine drug screen negative EKG done in the ER showed heart rate of 92, irregular in rhythm, no ST segment elevation or depression seen, no T-wave inversions seen. Chest x-ray done in the ER showed decreasing infiltrate in the right mid upper lung Patient admitted to internal medicine service REVIEW OF SYSTEMS: Review of systems cannot be obtained as patient is confused PHYSICAL EXAMINATION: GENERAL: The patient is alert, legally blind, chronically ill-looking HEENT: Pupils are round and equally reacting to light. EOMI. No scleral icterus. No conjunctival pallor. Normocephalic, atraumatic. No pharyngeal erythema. No thyromegaly. CARDIOVASCULAR: S1 and S2 present. No murmurs, rubs, or gallops. PULMONARY: Coarse breath sounds bilaterally, no wheeze ABDOMEN: Soft, nontender, nondistended, normoactive bowel sounds. No palpable organomegaly. MUSCULOSKELETAL: No joint swelling or deformity. EXTREMITIES: No cyanosis, clubbing, or pedal edema. NEUROLOGICAL: Gross neurological examination did not reveal any focal deficits. SKIN: No rashes. Assessment and plan UTI Acute metabolic encephalopathy Acute hypoxic respiratory failure Acute kidney injury Elevated troponin Persistent atrial fibrillation Monitor vital signs Monitor CBC Monitor CMP Continue telemetry monitoring Continue oxygen supplementation Aggressive bronchopulmonary hygiene Trend troponin Follow-up on blood cultures Follow-up on urine cultures Continue IV Rocephin Continue IV fluids Consult pulmonary Consult cardiology DPOA called Nursing staff and told them that the patient was no code, no intubation, no compression Labs and medication were reviewed.. Continue same treatment. Continue with symptomatic treatment. Resume home medication. Monitor labs and vitals. DVT and GI prophylaxis. Further recommendations as per clinical course of the patient Dictation was produced using [employer] dictation software. please excuse any grammatical, word or spelling errors. 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 glaucoma sx Past Anesthesia/Blood Transfusion Reactions: No Reported Reaction Past Psychological History: No Psychological Hx Reported Smoking Status: Never smoker Past Alcohol Use History: Rare Past Drug Use History: None Reported - Past Family History Father Additional Family Medical History / Comment(s): from a "slow heart" Mother Family Medical History: CVA/TIA Medications and Allergies Home Medications Medication Instructions Recorded Confirmed Type [place]-3 Fatty Acids/Fish Oil [Fish 1 cap PO DAILY@0801/13/18 05/03/23 History Oil 1,000 mg Softgel] Simvastatin [Zocor] 20 mg PO HS@199901/13/18 05/03/23 History Tamsulosin HCl [Flomax] 0.4 mg PO HS@79901/13/18 05/03/23 History lisinopriL [Prinivil] 20 mg PO BID@799,199901/13/18 05/03/23 History Calcium Carbonate [Calcium] 600 mg PO DAILY@79903/03/18 05/03/23 History Lidocaine 5% Patch [Lidoderm 5% 1 patch TOPICAL DAILY #10 patch 04/26/23 05/03/23 Rx Patch] Cholecalciferol [Vitamin D3 (25 50 mcg PO HS@199905/03/23 05/03/23 History Mcg = 1000 Iu)] Dorzolamide/Timolol/Pf 1 drop RIGHT EYE BID@0800,1700 05/03/23 05/03/23 History [Dorzolamide 2%-Timolol 0.5%] Furosemide [Lasix] 20 mg PO DAILY@0800 05/03/23 05/03/23 History L.acidoph,Paracasei, B.lactis 1 cap PO HS@199905/03/23 05/03/23 History [Probiotic] Melatonin 20 mg PO HS@199905/03/23 05/03/23 History Niacin [Niavasc] 1,000 mg PO HS@199905/03/23 05/03/23 History allopurinoL [Zyloprim] 100 mg PO DAILY@0800 05/03/23 05/03/23 History Apixaban [Eliquis] 5 mg PO BID tab 05/10/23 Rx Famotidine [Pepcid] 20 mg PO HS tab 05/10/23 Rx Ipratropium-Albuterol Nebulize 3 ml INHALATION RT-QID PRN each 05/10/23 Rx [Duoneb 0.5 mg-3 mg/3 ml Soln] Metoprolol Tartrate [Lopressor] 25 mg PO BID tab 05/10/23 Rx Moxifloxacin HCl [Avelox] 400 mg PO DAILY 7 Days #7 tab 05/10/23 Rx Potassium Chloride ER [K-Dur 20] 20 meq PO DAILY #30 tab 05/10/23 Rx Allergies Allergy/AdvReac Type Severity Reaction Status Date / Time No Known Allergies Allergy Verified 05/19/23 11:22 Physical Exam Vitals: Vital Signs Temp Pulse Resp BP Pulse Ox FiO2 05/19/23 13:32 90 24 88/73 95 05/19/23 11:50 80 05/19/23 11:41 80 80 H 76/37 100 05/19/23 11:31 100 05/19/23 11:08 98.7 F 84 24 81/41 Intake and Output 05/18/23 05/19/23 05/19/23 22:59 06:59 14:59 Other: Weight 77.111 kg Results CBC & Chem 7: 05/19/23 11:39 05/19/23 11:39 Labs: Abnormal Lab Results - Last 24 Hours (Table) 05/19/23 05/19/23 05/19/23 Range/Units 11:23 11:39 11:39 WBC 12.3 H (3.8-10.6) k/uL RBC 3.74 L (4.30-5.90) m/uL Hgb 12.8 L (13.0-17.5) gm/dL MCV 107.3 H (80.0-100.0) fL Neutrophils # 10.0 H (1.3-7.7) k/uL PT 18.6 H (10.0-12.5) sec INR 1.8 H (<1.2) ABG pCO2 32 L (35-45) mmHg ABG pO2 151 H (83-108) mmHg ABG HCO3 (21-25) mmol/L ABG O2 Saturation 98.9 H (94-97) % Chloride (98-107) mmol/L BUN (9-20) mg/dL Creatinine (0.66-1.25) mg/dL Plasma Lactic Acid Cesar (0.7-2.0) mmol/L Calcium (8.4-10.2) mg/dL AST (17-59) U/L Alkaline Phosphatase (38-126) U/L Troponin I (0.000-0.034) ng/mL Total Protein (6.3-8.2) g/dL Albumin (3.5-5.0) g/dL Urine Protein (Negative) Urine Blood (Negative) Ur Leukocyte Esterase (Negative) Urine RBC (0-5) /hpf Urine WBC (0-5) /hpf Urine WBC Clumps (None) /hpf Urine Bacteria (None) /hpf Hyaline Casts (0-2) /lpf 05/19/23 05/19/23 05/19/23 Range/Units 11:39 11:39 11:39 WBC (3.8-10.6) k/uL RBC (4.30-5.90) m/uL Hgb (13.0-17.5) gm/dL MCV (80.0-100.0) fL Neutrophils # (1.3-7.7) k/uL PT (10.0-12.5) sec INR (<1.2) ABG pCO2 (35-45) mmHg ABG pO2 (83-108) mmHg ABG HCO3 (21-25) mmol/L ABG O2 Saturation (94-97) % Chloride 113 H (98-107) mmol/L BUN 23 H (9-20) mg/dL Creatinine 1.72 H (0.66-1.25) mg/dL Plasma Lactic Acid Cesar (0.7-2.0) mmol/L Calcium 8.0 L (8.4-10.2) mg/dL AST 63 H (17-59) U/L Alkaline Phosphatase 156 H (38-126) U/L Troponin I 0.709 H* (0.000-0.034) ng/mL Total Protein 5.9 L (6.3-8.2) g/dL Albumin 2.9 L (3.5-5.0) g/dL Urine Protein 2+ H (Negative) Urine Blood Large H (Negative) Ur Leukocyte Esterase Large H (Negative) Urine RBC >182 H (0-5) /hpf Urine WBC >182 H (0-5) /hpf Urine WBC Clumps Many H (None) /hpf Urine Bacteria Few H (None) /hpf Hyaline Casts 52 H (0-2) /lpf 05/19/23 05/19/23 Range/Units 11:39 12:54 WBC (3.8-10.6) k/uL RBC (4.30-5.90) m/uL Hgb (13.0-17.5) gm/dL MCV (80.0-100.0) fL Neutrophils # (1.3-7.7) k/uL PT (10.0-12.5) sec INR (<1.2) ABG pCO2 31 L (35-45) mmHg ABG pO2 67 L (83-108) mmHg ABG HCO3 20 L (21-25) mmol/L ABG O2 Saturation 93.5 L (94-97) % Chloride (98-107) mmol/L BUN (9-20) mg/dL Creatinine (0.66-1.25) mg/dL Plasma Lactic Acid Cesar 2.6 H* (0.7-2.0) mmol/L Calcium (8.4-10.2) mg/dL AST (17-59) U/L Alkaline Phosphatase (38-126) U/L Troponin I (0.000-0.034) ng/mL Total Protein (6.3-8.2) g/dL Albumin (3.5-5.0) g/dL Urine Protein (Negative) Urine Blood (Negative) Ur Leukocyte Esterase (Negative) Urine RBC (0-5) /hpf Urine WBC (0-5) /hpf Urine WBC Clumps (None) /hpf Urine Bacteria (None) /hpf Hyaline Casts (0-2) /lpf
--- NOTE | 2023-05-19 16:11 | CT ---
EXAMINATION TYPE: CT brain wo con DATE OF EXAM: 05/19/2023 COMPARISON: 04/26/2023 HISTORY: ams CT DLP: 1373.[address] of the brain was performed. The ventricles, basal cisterns and sulci overlying the cerebral convexities demonstrate mild enlargem ent. There is no evidence for intracranial hemorrhage or sulcal effacement. There is decreased attenuation about the periventricular white matter and deep white matter of both c erebral hemispheres, compatible with chronic small vessel ischemia. Differential diagnosis does inclu de demyelination. No mass effects are seen.No midline shift. Osseous calvarium is intact. If symptoms persist consider MRI. IMPRESSION: 1. Age related atrophic and chronic small vessel ischemic change without acute intracranial process s een at this time.
[2023-05-19] MEDS ORDERED: LORazepam 2 MG/ML INJ IV PRN (16:30)
[2023-05-19] MEDS: MORPHINE SULFATE 2 MG/ML SYRINGE IVP STA (16:35)
[2023-05-19] MEDS: cefTRIAXone IN SWFI 1,000 MG/10 ML SYRINGE IVP STA (16:40)
[2023-05-19] MEDS ORDERED: MORPHINE SULFATE 2 MG/ML SYRINGE IVP PRN (16:42)
[2023-05-19] MEDS: HEPARIN SODIUM 1,000 UN/ML (10ML VL) IV ONE (16:53)
[2023-05-19] MEDS: SODIUM CHLORIDE 0.9% 1,000 ML IV SCH (16:53)
[2023-05-19] MEDS: HEPARIN SOD,PORK IN 0.45% NACL 25,000 UNIT in 0.45% NACL 1 250ML.BAG IV SCH (16:54)
[2023-05-19] MEDS: LORazepam 2 MG/ML INJ IV PRN (18:06)
[2023-05-19 19:23] VITALS: TEMP 97.3
[2023-05-19] MEDS ORDERED: ATROPINE OPHTH SOLN 1% 5ML BTL SUBLINGUAL PRN (19:28)
--- NOTE | 2023-05-19 19:28 | P.CRDCN ---
History of Present Illness Consult date: 05/19/23 History of present illness: HISTORY OF PRESENTING ILLNESS 88-year-old male with PMH of HTN, dyslipidemia, atrial fibrillation was brought from the group home when he was found unresponsive. Patient is awake and but not oriented and is not able to provide any reliable history. According to the medical chart, patient was found unresponsive slammed up in the wheelchair. On admission WBC 12.3, hemoglobin 12.8, platelets 378, sodium 142, potassium 4, BUN 23, creatinine 1.7, lactate 2.6, troponin 0.7. Repeat troponin 0.6, 0.6. REVIEW OF SYSTEMS 14 point review of system is negative except what is mentioned above in HPI. PHYSICAL EXAMINATION Neck: no jugular venous distention. Lungs: Clear to auscultation. Heart: Regular pulse, systolic murmur noted in aortic area Abdomen: Soft nontender, Extremities: No edema,. Neuro: Awake but not oriented to time place and person. Detailed neuro exam was not performed. ASSESSMENT Mild troponin elevation with flat pattern less likely cardiac. Most likely because of poor renal clearance, atrial fibrillation and dehydration He had mild elevation of troponin last admission as well. At that time his creatinine was normal Persistent atrial fibrillation, with RVR Right bundle-branch block, LAFB History of abdominal aortic aneurysm Failure to thrive Acute metabolic encephalopathy ADRIAN Echo from April 2023 shows EF 45-50%, RVSP 31, aortic sclerosis without significant stenosis PLAN Discontinue IV heparin drip Continue aspirin, atorvastatin Supportive care as per primary team for other comorbidities Patient is failing to thrive. He is confused at baseline. 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 glaucoma sx Past Anesthesia/Blood Transfusion Reactions: No Reported Reaction Past Psychological History: No Psychological Hx Reported Smoking Status: Never smoker Past Alcohol Use History: Rare Past Drug Use History: None Reported - Past Family History Father Additional Family Medical History / Comment(s): from a "slow heart" Mother Family Medical History: CVA/TIA Medications and Allergies Home Medications Medication Instructions Recorded Confirmed Type [place]-3 Fatty Acids/Fish Oil [Fish 1 cap PO DAILY 01/13/18 05/19/23 History Oil 1,000 mg Softgel] Tamsulosin HCl [Flomax] 0.4 mg PO DAILY 01/13/18 05/19/23 History lisinopriL [Prinivil] 20 mg PO BID 01/13/18 05/19/23 History Calcium Carbonate [Calcium] 600 mg PO DAILY 03/03/18 05/19/23 History Cholecalciferol [Vitamin D3 (25 50 mcg PO DAILY 05/03/23 05/19/23 History Mcg = 1000 Iu)] Dorzolamide/Timolol/Pf 1 drop RIGHT EYE BID 05/03/23 05/19/23 History [Dorzolamide 2%-Timolol 0.5%] Furosemide [Lasix] 20 mg PO DAILY 05/03/23 05/19/23 History L.acidoph,Paracasei, B.lactis 1 cap PO HS 05/03/23 05/19/23 History [Probiotic] Melatonin 20 mg PO HS 05/03/23 05/19/23 History Niacin [Niavasc] 1,000 mg PO HS 05/03/23 05/19/23 History allopurinoL [Zyloprim] 100 mg PO DAILY 05/03/23 05/19/23 History Apixaban [Eliquis] 5 mg PO BID tab 05/10/23 05/19/23 Rx Famotidine [Pepcid] 20 mg PO HS tab 05/10/23 05/19/23 Rx Metoprolol Tartrate [Lopressor] 25 mg PO BID tab 05/10/23 05/19/23 Rx Potassium Chloride ER [K-Dur 20] 20 meq PO DAILY #30 tab 05/10/23 05/19/23 Rx Atorvastatin [Lipitor] 10 mg PO DAILY 05/19/23 05/19/23 History Bethanechol Chloride 50 mg PO Q8H 05/19/23 05/19/23 History Cyanocobalamin [Vitamin B-12] 500 mcg PO DAILY 05/19/23 05/19/23 History Ipratropium-Albuterol Nebulize 3 ml INHALATION RT-TID PRN 05/19/23 05/19/23 History [Duoneb 0.5 mg-3 mg/3 ml Soln] Methyl Salicylate/Menth/Camph 1 patch TOPICAL DAILY 05/19/23 05/19/23 History [Salonpas 3.1%-6.0%-10.0% Patch] Mirtazapine 7.5 mg PO HS 05/19/23 05/19/23 History metroNIDAZOLE [Flagyl] 500 mg PO TID 05/19/23 05/19/23 History Allergies Allergy/AdvReac Type Severity Reaction Status Date / Time No Known Allergies Allergy Verified 05/19/23 14:47 Physical Exam Vitals: Vital Signs Temp Pulse Pulse Resp BP BP Pulse Ox 05/19/23 18:58 97.3 F L 85 21 76/41 98 05/19/23 18:53 05/19/23 17:02 87 26 H 93/59 100 05/19/23 16:26 05/19/23 16:18 137 H 30 H 97/62 05/19/23 16:06 86 L 05/19/23 15:29 81 22 99/55 95 05/19/23 14:41 77 24 101/54 95 05/19/23 13:32 90 24 88/73 95 05/19/23 11:50 05/19/23 11:41 80 80 H 76/37 100 05/19/23 11:31 05/19/23 11:08 98.7 F 84 24 81/41 FiO2 05/19/23 18:58 05/19/23 18:53 50 05/19/23 17:02 50 05/19/23 16:26 60 05/19/23 16:18 05/19/23 16:06 05/19/23 15:29 05/19/23 14:41 05/19/23 13:32 05/19/23 11:50 80 05/19/23 11:41 05/19/23 11:31 100 05/19/23 11:08 Intake and Output 05/19/23 05/19/23 05/19/23 06:59 14:59 22:59 Other: Weight 77.111 kg Results 05/19/23 11:39 05/19/23 11:39 Cardiac Enzymes 05/19/23 05/19/23 05/19/23 Range/Units 11:39 11:39 14:55 AST 63 H (17-59) U/L Troponin I 0.709 H* 0.643 H* (0.000-0.034) ng/mL 05/19/23 Range/Units 17:49 AST (17-59) U/L Troponin I 0.681 H* (0.000-0.034) ng/mL Coagulation 05/19/23 Range/Units 11:39 PT 18.6 H (10.0-12.5) sec APTT 29.0 (22.0-30.0) sec CBC 05/19/23 Range/Units 11:39 WBC 12.3 H (3.8-10.6) k/uL RBC 3.74 L (4.30-5.90) m/uL Hgb 12.8 L (13.0-17.5) gm/dL Hct 40.1 (39.0-53.0) % Plt Count 338 (150-450) k/uL Comprehensive Metabolic Panel 05/19/23 Range/Units 11:39 Sodium 142 (137-145) mmol/L Potassium 4.0 (3.5-5.1) mmol/L Chloride 113 H (98-107) mmol/L Carbon Dioxide 23 (22-30) mmol/L BUN 23 H (9-20) mg/dL Creatinine 1.72 H (0.66-1.25) mg/dL Glucose 89 (74-99) mg/dL Calcium 8.0 L (8.4-10.2) mg/dL AST 63 H (17-59) U/L ALT 30 (4-49) U/L Alkaline Phosphatase 156 H (38-126) U/L Total Protein 5.9 L (6.3-8.2) g/dL Albumin 2.9 L (3.5-5.0) g/dL Current Medications Generic Name Dose Route Start Last Admin Trade Name Freq PRN Reason Stop Dose Admin Acetaminophen 650 mg 05/19/23 14:47 Acetaminophen Tab 325 Mg Tab PO Q6HR PRN Mild Pain or Fever > 100.5 Al Hydroxide/Mg Hydroxide 15 ml 05/19/23 14:47 Mag Hydrox/Al Hydrox/Simeth 30 Ml Cup PO Q6HR PRN Indigestion Ceftriaxone Sodium 2 gm/ 50 mls @ 100 mls/hr 05/20/23 09:00 Sodium Chloride IVPB Q24HR JUSTYNA Protocol Sodium Chloride 1,000 mls @ 50 mls/hr 05/19/23 15:00 05/19/23 16:53 Saline 0.9% IV 50 mls/hr .Q20H JUSTYNA Administration Lorazepam 1 mg 05/19/23 16:27 05/19/23 18:06 Lorazepam 2 Mg/Ml Inj IV 1 mg Q8HR PRN Administration Anxiety Morphine Sulfate 1 mg 05/19/23 16:42 Morphine Sulfate 2 Mg/Ml Syringe IVP Q4HR PRN Pain/Discomfort Naloxone HCl 0.2 mg 05/19/23 14:47 Naloxone 0.4 Mg/Ml 1 Ml Vial IV Q2M PRN Opioid Reversal Nitroglycerin 0.4 mg 05/19/23 14:35 Nitroglycerin Sl Tabs 0.4 Mg Tab SUBLINGUAL Q5M PRN Chest Pain Ondansetron HCl 4 mg 05/19/23 14:47 Ondansetron 4 Mg/2 Ml Vial IVP Q8HR PRN Nausea And Vomiting Intake and Output 05/19/23 05/19/23 05/19/23 06:59 14:59 22:59 Other: Weight 77.111 kg Patient Weight 05/20/23 06:59 Weight 77.111 kg 05/19/23 11:39 05/19/23 11:39
[2023-05-19] MEDS: MORPHINE SULFATE (100 MG/2 ML) 100 MG in SODIUM CHLORIDE 0.9% 100 ML IV SCH (19:45)
[2023-05-19] MEDS: SCOPOLAMINE 1 MG/72 HR PATCH TRANSDERM SCH (19:46)
[2023-05-19 20:06] VITALS: BP 111/74
[2023-05-19 20:29] VITALS: PULSE 85
[2023-05-20 03:12] VITALS: RESP 12
[2023-05-20] MEDS ORDERED: ASPIRIN 325 MG TAB PO SCH (09:00)
--- NOTE | 2023-05-20 10:06 | P.DS ---
Providers Date of admission: 05/19/23 14:35 Expected date of discharge: 05/19/23 Attending physician: Cl Fernandes MD Consults: 05/19/23 14:32 Consult Physician Routine Consulting Provider: Genny Álvarez Consult Reason/Comments: pneumonia Do you want consulting provider notified?: Yes 05/19/23 14:35 Consult Physician Urgent Consulting Provider: [facility] Consult Reason/Comments: N STEMI Do you want consulting provider notified?: Yes Primary care physician: Gillian [facility] Course: Discharge diagnoses; UTI Acute metabolic encephalopathy Acute hypoxic respiratory failure Acute kidney injury Elevated troponin Persistent atrial fibrillation Failure to thrive Hospital course; patient is a 87-year-old male patient with past medical history of hypertension, hyperlipidemia, osteoarthritis, atrial fibrillation was brought to the ER from assisted because of an episode of unresponsiveness. The history is limited as patient is a poor historian. According to nursing staff, patient was found to be less responsive this morning, was found slumped in the wheelchair. There was no complain of any fever or chills at the assisted. Patient was being treated for pneumonia at the assisted with Avelox. There was no complain of any chest pain shortness of breath. No complain of any weakness of any extremity. No complain of jerking movement of any extremity. Patient did not lose control over his bowel or urine. When EMS arrived, patient was responsive and was answering and following commands. Because of this episode, patient was brought to the ER Initial lab work done in the ER showed WBC 12.3, hemoglobin 12.8, platelet count 378, sodium 142, potassium 4, BUN 23, creatinine 1.72, lactate 2.6, troponin 0.709 UA done showed large amount of blood, large amount of leukocyte Estrace, Urine drug screen negative EKG done in the ER showed heart rate of 92, irregular in rhythm, no ST segment elevation or depression seen, no T-wave inversions seen. Chest x-ray done in the ER showed decreasing infiltrate in the right mid upper lung Patient admitted to internal medicine service While in the hospital, patient respiratory status deteriorated, discussed with patient's daughter regarding patient's poor prognosis, decision was made to transition patient to comfort care. patient at 05/20/2023 0211. Family was updated about the loss. Dictation was produced using [employer]. please excuse any grammatical, word or spelling errors. Patient Condition at Discharge: Poor Plan - Discharge Summary Discharge Rx Participant: No New Discharge Prescriptions: No Action Tamsulosin HCl [Flomax] 0.4 mg PO DAILY lisinopriL [Prinivil] 20 mg PO BID [place]-3 Fatty Acids/Fish Oil [Fish Oil 1,000 mg Softgel] 1 cap PO DAILY Calcium Carbonate [Calcium] 600 mg PO DAILY Furosemide [Lasix] 20 mg PO DAILY Methyl Salicylate/Menth/Camph [Salonpas 3.1%-6.0%-10.0% Patch] 1 patch TOPICAL DAILY Mirtazapine 7.5 mg PO HS metroNIDAZOLE [Flagyl] 500 mg PO TID Cholecalciferol [Vitamin D3 (25 Mcg = 1000 Iu)] 50 mcg PO DAILY L.acidoph,Paracasei, B.lactis [Probiotic] 1 cap PO HS Niacin [Niavasc] 1,000 mg PO HS Melatonin 20 mg PO HS allopurinoL [Zyloprim] 100 mg PO DAILY Dorzolamide/Timolol/Pf [Dorzolamide 2%-Timolol 0.5%] 1 drop RIGHT EYE BID Apixaban [Eliquis] 5 mg PO BID tab Potassium Chloride ER [K-Dur 20] 20 meq PO DAILY #30 tab Metoprolol Tartrate [Lopressor] 25 mg PO BID tab Famotidine [Pepcid] 20 mg PO HS tab Cyanocobalamin [Vitamin B-12] 500 mcg PO DAILY Ipratropium-Albuterol Nebulize [Duoneb 0.5 mg-3 mg/3 ml Soln] 3 ml INHALATION RT-TID PRN PRN Reason: Dyspnea Bethanechol Chloride 50 mg PO Q8H Atorvastatin [Lipitor] 10 mg PO DAILY Discharge Medication List [place]-3 Fatty Acids/Fish Oil [Fish Oil 1,000 mg Softgel] 1 cap PO DAILY 01/13/18 [History] Tamsulosin HCl [Flomax] 0.4 mg PO DAILY 01/13/18 [History] lisinopriL [Prinivil] 20 mg PO BID 01/13/18 [History] Calcium Carbonate [Calcium] 600 mg PO DAILY 03/03/18 [History] Cholecalciferol [Vitamin D3 (25 Mcg = 1000 Iu)] 50 mcg PO DAILY 05/03/23 [History] Dorzolamide/Timolol/Pf [Dorzolamide 2%-Timolol 0.5%] 1 drop RIGHT EYE BID 05/03/23 [History] Furosemide [Lasix] 20 mg PO DAILY 05/03/23 [History] L.acidoph,Paracasei, B.lactis [Probiotic] 1 cap PO HS 05/03/23 [History] Melatonin 20 mg PO HS 05/03/23 [History] Niacin [Niavasc] 1,000 mg PO HS 05/03/23 [History] allopurinoL [Zyloprim] 100 mg PO DAILY 05/03/23 [History] Apixaban [Eliquis] 5 mg PO BID tab 05/10/23 [Rx] Famotidine [Pepcid] 20 mg PO HS tab 05/10/23 [Rx] Metoprolol Tartrate [Lopressor] 25 mg PO BID tab 05/10/23 [Rx] Potassium Chloride ER [K-Dur 20] 20 meq PO DAILY #30 tab 05/10/23 [Rx] Atorvastatin [Lipitor] 10 mg PO DAILY 05/19/23 [History] Bethanechol Chloride 50 mg PO Q8H 05/19/23 [History] Cyanocobalamin [Vitamin B-12] 500 mcg PO DAILY 05/19/23 [History] Ipratropium-Albuterol Nebulize [Duoneb 0.5 mg-3 mg/3 ml Soln] 3 ml INHALATION RT-TID PRN 05/19/23 [History] Methyl Salicylate/Menth/Camph [Salonpas 3.1%-6.0%-10.0% Patch] 1 patch TOPICAL DAILY 05/19/23 [History] Mirtazapine 7.5 mg PO HS 05/19/23 [History] metroNIDAZOLE [Flagyl] 500 mg PO TID 05/19/23 [History] Follow up Appointment(s)/Referral(s): Gillian Petit MD [Primary Care Provider] - 1-2 days Discharge Disposition: - Preliminary Cause of Preliminary Cause of : Acute hypoxemic respiratory failure
--- NOTE | 2023-05-31 16:27 | CDI ---
Documentation Clarification Form Date: 05/31/2023 04:12:44 PM From: Linnea Neely RN, CCDS Email: [email or web address] Admit Date: 05/19/2023 02:35:00 PM Patient Name: Zach Welch Visit Number: [id number] Discharge Date: 05/20/2023 05:30:00 AM ATTENTION: The Clinical Documentation Specialists (CDI) and [facility] Coding Staff appreciate your assistance in clarifying documentation. Please respond to the clarification below the line at the bottom and electronically sign. The CDI & [facility] Coding staff will review the response and follow-up if needed. Please note: Queries are made part of the Legal Health Record. If you have any questions, please contact the author of this message via ITS. Dr. Cl Fernandes The patient had a UTI and was on treatment for pneumonia. Based on this information and the findings below, is there an additional diagnosis that is clinically appropriate for this patient? History/Risk Factors: 88[place]year[place] Came in due to unresponsiveness. History of A fib, HTN, HLD and pneumonia, currently on treatment. Admitted with UTI, metabolic encephalopathy and acute hypoxic respiratory failure. Clinical Indicators: ED: "Urinary tract infection, Sepsis, Acute renal failure, non-ST elevated myocardial infarction." 05/19 WBC: 12.3 05/19 Lactic acid: 2.6 05/19 Blood cultures: Staphylococcus aureus 05/19 Vital signs: HR 137, RR 24-30, BP 76/37 05/19 UA: large blood, large leukocyte esterase, >182 WBC Treatment: Antibiotics: IVP Rocephin 1000mg x1 on 05/19 then ordered 2gm Q24H but not given due to comfort care IV Bolus: 1L 0.9 NS x2 on 05/19 then 50mL/hr Is there an additional diagnosis that is clinically appropriate for this patient? [ x ] Sepsis, present on admission [ ] No additional diagnosis [ ] Other, please specify [ ] Unable to determine SIRS Criteria: 2 or more of the following may indicate SIRS Temperature < 96.8F (36C) or > 101.0F (38.3C) Heart Rate > 90 bpm Respiratory Rate > 20 breaths/min or PaCO2 < 32 mmHg White Blood Cell Count > 12,000 or < 4,000 cells/mm3 or > 10% bands MTDD
== END 2023-05-20 05:30 | disposition expired | DRG 871 ==
LOC: EC 11:04 → 3SCARD 14:35
PROVIDERS: ADMIT Internal Medicine; ATTEND Internal Medicine
PROC: 5A09357 Assistance with Respiratory Ventilation, Less than 24 Consecutive Hours, Continuous Positive Airway Pressure (ICD-10-PCS; principal; 2023-05-19)
DX: A41.9 Sepsis, unspecified organism (principal); G93.41 Metabolic encephalopathy; J96.01 Acute respiratory failure with hypoxia; J18.9 Pneumonia, unspecified organism; N17.9 Acute kidney failure, unspecified; I48.19 Other persistent atrial fibrillation; N39.0 Urinary tract infection, site not specified; I71.40 Abdominal aortic aneurysm, without rupture, unspecified; I70.0 Atherosclerosis of aorta; R62.7 Adult failure to thrive; E86.0 Dehydration; I10 Essential (primary) hypertension; Z66 Do not resuscitate; Z51.5 Encounter for palliative care; E78.5 Hyperlipidemia, unspecified; M19.90 Unspecified osteoarthritis, unspecified site; H91.90 Unspecified hearing loss, unspecified ear; I45.10 Unspecified right bundle-branch block; H54.8 Legal blindness, as defined in USA; R79.89 Other specified abnormal findings of blood chemistry; Z79.01 Long term (current) use of anticoagulants; Z87.891 Personal history of nicotine dependence; Z79.899 Other long term (current) drug therapy
CPT/HCPCS: 36415; 36600; 70450; 71045; 80053; 80306; 81001; 82140; 82805; 83605; 83735; 84484; 85025; 85610; 85730; 87040; 87324; 87636; 93005; 94660; 96361; 96365; 96366; 96375; 99285